=== PATIENT | male | born 1930 | race Caucasian/White ===

== ENCOUNTER 2017-10-08 08:09 | Day surgery (SDC) | payer MEDICARE, BC ==
[~2017-10-08 08:09] MED LIST: Cefuroxime 10 MG/ML SYRINGE EYELF SCH; Lidocaine 1% PF 2 ML SDV INJECT SCH; Pilocarpine 4% Ophth Soln 15 ML Bot EYELF SCH
[2017-10-08] MEDS: Polymyxin B/Trimethoprim 10 ML Bottle EYELF SCH ×3 (08:23→10:17)
[2017-10-08] MEDS: Brimonidine 0.2% Ophth Soln 5 ML Bottle EYELF SCH ×3 (08:27→10:17)
--- NOTE | 2017-10-08 08:34 | PCM.PREANE ---
Preanesthetic Assessment - Procedure Proposed Procedure: cataract left - Anesthesia/Transfusion/Family Hx Anesthesia History: Prior Anesthesia Without Reaction Family History of Anesthesia Reaction: No Transfusion History: No Prior Transfusion(s) - Review of Systems General: No Symptoms Pulmonary: Cough (chronic) Cardiovascular: No Symptoms Gastrointestinal: No Symptoms Neurological: No Symptoms - Physical Assessment NPO Status Date: 10/07/17 NPO Status Time: 20:00 Pulse: 70 O2 Sat by Pulse Oximetry: 98 Respiratory Rate: 16 Blood Pressure: 142/99 Temperature: 97.4 F Height: 6 ft Weight: 88.451 kg ASA Class: 2 Mental Status: Alert & Oriented x3 Airway Class: Mallampati = 1 Dentition: Reports: Dentures (top), Missing Tooth/Teeth (bottom) Thyro-Mental Finger Breadths: 3 Mouth Opening Finger Breadths: 3 ROM/Head Extension: Full Lungs: Clear to Auscultation, Normal Respiratory Effort Cardiovascular: Irregular Rhythm - Allergies Allergies/Adverse Reactions: Allergies Allergy/AdvReac Type Severity Reaction Status Date / Time No Known Allergies Allergy Verified 10/07/17 12:10 - Blood Blood Available: No - Anesthesia Plan Beta Mikael: Metoprolol Med Last Dose Date: 10/08/17 Med Last Dose Time: 07:00 - Acknowledgements Anesthesia Type Planned: MAC Pt an Appropriate Candidate for the Planned Anesthesia: Yes Alternatives and Risks of Anesthesia Discussed w Pt/Guardian: Yes Pt/Guardian Understands and Agrees with Anesthesia Plan: Yes PreAnesthesia Questionnaire Cardiovascular History: Reports: Afib, High Cholesterol, Hypertension Respiratory History: Reports: None, Other (See Below) (quit 50 years ago) Gastrointestinal History: Reports: None Musculoskeletal History: Reports: Arthritis, Back Pain, Chronic Oncologic (Cancer) History: Reports: Prostate (many years ago) - Past Surgical History GI Surgical History: Reports: Colonoscopy Musculoskeletal Surgical History: Reports: Knee Replacement - SUBSTANCE USE Smoking Status *Q: Former Smoker Tobacco Use Within Last Twelve Months: No Second Hand Smoke Exposure: No Days Per Week of Alcohol Use: 0 Number of Drinks Per Day: 0 Total Drinks Per Week: 0 Recreational Drug Use History: No - HOME MEDS Home Medications: Home Meds Aspirin [Halfprin] 81 mg PO DAILY 11/26/13 [History] atorvaSTATin [Lipitor] 40 mg PO BEDTIME #30 tab 11/27/13 [Rx] Metoprolol Tartrate 12.5 mg PO BID 10/07/17 [History] Warfarin Sodium 4 mg PO BEDTIME 10/07/17 [History] - CURRENT (IN HOUSE) MEDS Current Meds: Current Medications Brimonidine Tartrate (Alphagan 0.2% Ophth Soln) 0 ml EYELF ASDIRECTED FARHAT Stop: 10/08/17 19:00 Cefuroxime Sodium (Zinacef) 0 mg EYELF ASDIRECTED FARHAT Stop: 10/08/17 19:00 Lidocaine HCl (Xylocaine-Mpf 1%) 0 ml INJECT ASDIRECTED FARHAT Stop: 10/08/17 19:00 Phenylephrine HCl (Murphy-Synephrine 2.5% Ophth Soln) 0 ml EYELF ASDIRECTED FARHAT Stop: 10/08/17 19:00 Pilocarpine HCl (Pilocar 4% Ophth Soln) 0 ml EYELF ASDIRECTED FARHAT Stop: 10/08/17 19:00 Polymyxin/Trimethoprim Sulfate (Polytrim Ophth Soln) 0 ml EYELF ASDIRECTED FARHAT Stop: 10/08/17 19:00 Last Admin: 10/08/17 08:23 Dose: 1 drop Tetracaine HCl (Tetracaine 0.5% Steri-Unit Karissa) 0 ml EYELF ASDIRECTED FARHAT Stop: 10/08/17 19:00 Tropicamide (Mydriacyl 1% Ophth Soln) 0 ml EYELF ASDIRECTED FARHAT Stop: 10/08/17 19:00
[2017-10-08] MEDS: Phenylephrine 2.5% Ophth Soln 2 ML Bot EYELF SCH ×4 (08:35→09:14)
[2017-10-08] MEDS: Tropicamide 1% Ophth Soln 3 ML Bottle EYELF SCH ×4 (08:40→09:24)
[2017-10-08] MEDS: Tetracaine HCl/PF 0.5% 4 ML Bottle EYELF SCH ×3 (09:46→10:06)
--- NOTE | 2017-10-08 10:19 | PCM48HPAN ---
Post Anesthesia Note - EVALUATION WITHIN 48HRS OF ANESTHETIC Vital Signs in Normal Range: Yes Patient Participated in Evaluation: Yes Respiratory Function Stable: Yes Airway Patent: Yes Cardiovascular Function Stable: Yes Hydration Status Stable: Yes Pain Control Satisfactory: Yes Nausea and Vomiting Control Satisfactory: Yes Mental Status Recovered: Yes Pulse Rate: 65 SaO2: 100 Resp Rate: 16 Temperature: 36.8 C Blood Pressure: 136/86
[2017-10-08 10:33] VITALS: BP 126/84
== END 2017-10-08 10:28 | disposition home or self-care (01) ==
LOC: JD.SDS 08:09
PROVIDERS: ATTEND Ophthalmology
DX: H25.813 Combined forms of age-related cataract, bilateral (principal); E78.00 Pure hypercholesterolemia, unspecified; I48.91 Unspecified atrial fibrillation; I10 Essential (primary) hypertension; H91.90 Unspecified hearing loss, unspecified ear; H35.3131 Nonexudative age-related macular degeneration, bilateral, early dry stage; H35.363 Drusen (degenerative) of macula, bilateral; H16.223 Keratoconjunctivitis sicca, not specified as Sjogren's, bilateral; H16.103 Unspecified superficial keratitis, bilateral; H02.831 Dermatochalasis of right upper eyelid; Z87.891 Personal history of nicotine dependence; Z79.01 Long term (current) use of anticoagulants; Z79.82 Long term (current) use of aspirin
CPT/HCPCS: 66984; C1780; J0697; J2001; A9270-GY

== ENCOUNTER 2017-11-07 09:04 | Day surgery (SDC) | payer MEDICARE, BC ==
[~2017-11-07 09:04] MED LIST changes: -Cefuroxime 10 MG/ML SYRINGE EYELF SCH; +Cefuroxime 10 MG/ML SYRINGE EYERT SCH; -Pilocarpine 4% Ophth Soln 15 ML Bot EYELF SCH; +Pilocarpine 4% Ophth Soln 15 ML Bot EYERT SCH
[2017-11-07] MEDS: Polymyxin B/Trimethoprim 10 ML Bottle EYERT SCH ×3 (10:33→12:25)
[2017-11-07] MEDS: Brimonidine 0.2% Ophth Soln 5 ML Bottle EYERT SCH ×3 (10:39→12:25)
[2017-11-07] MEDS: Phenylephrine 2.5% Ophth Soln 2 ML Bot EYERT SCH ×5 (10:44→12:00)
[2017-11-07] MEDS: Tropicamide 1% Ophth Soln 15 ML Bottle EYERT SCH ×4 (10:49→11:39)
--- NOTE | 2017-11-07 10:58 | PCM.PREANE ---
Preanesthetic Assessment - Anesthesia/Transfusion/Family Hx Anesthesia History: Prior Anesthesia Without Reaction Family History of Anesthesia Reaction: No Transfusion History: No Prior Transfusion(s) - Review of Systems General: No Symptoms Pulmonary: Shortness of Breath, Cough (Former Smoker, Chronic cough) Cardiovascular: No Symptoms Gastrointestinal: No Symptoms Neurological: No Symptoms Other: Reports: Easy Bruising (On coumadin) - Physical Assessment NPO Status Date: 11/06/17 NPO Status Time: 21:00 Pulse: 81 O2 Sat by Pulse Oximetry: 96 Respiratory Rate: 16 Blood Pressure: 149/93 Temperature: 36.8 C Weight: 88.451 kg ASA Class: 3 Mental Status: Alert & Oriented x3 Airway Class: Mallampati = 2 Dentition: Reports: Normal Dentition Thyro-Mental Finger Breadths: 3 Mouth Opening Finger Breadths: 3 ROM/Head Extension: Full Lungs: Clear to Auscultation, Normal Respiratory Effort Cardiovascular: Irregular Rhythm (History of A Fib) - Allergies Allergies/Adverse Reactions: Allergies Allergy/AdvReac Type Severity Reaction Status Date / Time No Known Allergies Allergy Verified 11/06/17 11:12 - Anesthesia Plan Beta Mikael: Metoprolol Med Last Dose Date: 11/07/17 Med Last Dose Time: 07:00 - Acknowledgements Anesthesia Type Planned: MAC Pt an Appropriate Candidate for the Planned Anesthesia: Yes Alternatives and Risks of Anesthesia Discussed w Pt/Guardian: Yes Pt/Guardian Understands and Agrees with Anesthesia Plan: Yes PreAnesthesia Questionnaire Cardiovascular History: Reports: Afib, High Cholesterol, Hypertension Respiratory History: Reports: None, Other (See Below) (quit 50 years ago) Gastrointestinal History: Reports: None Musculoskeletal History: Reports: Arthritis, Back Pain, Chronic Oncologic (Cancer) History: Reports: Prostate (many years ago) - Past Surgical History GI Surgical History: Reports: Colonoscopy Musculoskeletal Surgical History: Reports: Knee Replacement - HOME MEDS Home Medications: Home Meds Aspirin [Halfprin] 81 mg PO DAILY 11/26/13 [History] atorvaSTATin [Lipitor] 40 mg PO BEDTIME #30 tab 11/27/13 [Rx] Metoprolol Tartrate 12.5 mg PO BID 10/07/17 [History] Warfarin Sodium 4 mg PO BEDTIME 10/07/17 [History] - CURRENT (IN HOUSE) MEDS Current Meds: Current Medications [facility] 0 ml EYERT ASDIRECTED FARHAT Stop: 11/07/17 18:00 Last Admin: 11/07/17 10:39 Dose: 1 drop Cefuroxime Sodium (Zinacef) 0 mg EYERT ASDIRECTED FARHAT Stop: 11/07/17 18:00 Lidocaine HCl (Xylocaine-Mpf 1%) 0 ml INJECT ASDIRECTED FARHAT Stop: 11/07/17 18:00 Phenylephrine HCl (Murphy-Synephrine 2.5% Ophth Soln) 0 ml EYERT ASDIRECTED FARHAT Stop: 11/07/17 18:00 Last Admin: 11/07/17 10:44 Dose: 1 drop Pilocarpine HCl (Pilocar 4% Ophth Soln) 0 ml EYERT ASDIRECTED FARHAT Stop: 11/07/17 18:00 Polymyxin/Trimethoprim Sulfate (Polytrim Ophth Soln) 0 ml EYERT ASDIRECTED FARHAT Stop: 11/07/17 18:00 Last Admin: 11/07/17 10:33 Dose: 1 drop Tetracaine HCl (Tetracaine 0.5% Steri-Unit Karissa) 0 ml EYERT ASDIRECTED FARHAT Stop: 11/07/17 18:00 Tropicamide (Mydriacyl 1% Ophth Soln) 0 ml EYERT ASDIRECTED FARHAT Stop: 11/07/17 18:00 Last Admin: 11/07/17 10:49 Dose: 1 drop
[2017-11-07] MEDS: Tetracaine HCl/PF 0.5% 4 ML Bottle EYERT SCH ×2 (11:50→12:11)
--- NOTE | 2017-11-07 12:27 | PCM48HPAN ---
Post Anesthesia Note - EVALUATION WITHIN 48HRS OF ANESTHETIC Vital Signs in Normal Range: Yes Patient Participated in Evaluation: Yes Respiratory Function Stable: Yes Airway Patent: Yes Cardiovascular Function Stable: Yes Hydration Status Stable: Yes Pain Control Satisfactory: Yes Nausea and Vomiting Control Satisfactory: Yes Mental Status Recovered: Yes Pulse Rate: 69 SaO2: 99 Resp Rate: 20 Temperature: 36.8 C Blood Pressure: 126/98
[2017-11-07 12:44] VITALS: BP 137/93
== END 2017-11-07 12:40 | disposition home or self-care (01) ==
LOC: JD.SDS 09:04
PROVIDERS: ATTEND Ophthalmology
DX: H25.811 Combined forms of age-related cataract, right eye (principal); H35.3131 Nonexudative age-related macular degeneration, bilateral, early dry stage; H35.363 Drusen (degenerative) of macula, bilateral; H02.831 Dermatochalasis of right upper eyelid; E78.00 Pure hypercholesterolemia, unspecified; M19.90 Unspecified osteoarthritis, unspecified site; Z79.01 Long term (current) use of anticoagulants; Z98.42 Cataract extraction status, left eye; Z96.1 Presence of intraocular lens; Z87.891 Personal history of nicotine dependence; Z83.518 Family history of other specified eye disorder
CPT/HCPCS: 66984; C1780; J0697; A9270-GY; J2001

== ENCOUNTER 2018-08-14 18:16 | Emergency (ER) | payer MEDICARE, BC ==
[2018-08-14 18:41] VITALS: BP 134/85
[2018-08-14] MEDS ORDERED: Sodium Chloride 0.9% 10 ML Syringe FLUSH PRN (18:53)
[2018-08-14] MEDS ORDERED: Diltiazem 50 MG/10 ML SDV IVPUSH ONE (18:55)
[2018-08-14] MEDS ORDERED: Furosemide 40 MG/4 ML VIAL IVPUSH ONE (18:55)
--- NOTE | 2018-08-14 19:09 | EDM.PDOC ---
<LalaCurt goodman Hillary - Last Filed: 08/14/18 19:08> ED HPI GENERAL MEDICAL PROBLEM - General Chief Complaint: Respiratory Problem Stated Complaint: FELL SATURDAY/WEAK SOB/BACK PAIN Time Seen by Provider: 08/14/18 18:53 - Related Data Allergies Allergy/AdvReac Type Severity Reaction Status Date / Time No Known Allergies Allergy Verified 11/06/17 11:12 Home Meds: Home Meds atorvaSTATin [Lipitor] 40 mg PO BEDTIME #30 tab 11/27/13 [Rx] Metoprolol Tartrate 25 mg PO BID 10/07/17 [History] Warfarin Sodium 4 mg PO BEDTIME 10/07/17 [History] Furosemide [Lasix] 20 mg PO DAILY 08/14/18 [History] Past Medical History HEENT History: Reports: Impaired Vision Cardiovascular History: Reports: Afib, High Cholesterol, Hypertension Respiratory History: Reports: None, Other (See Below) Gastrointestinal History: Reports: None Musculoskeletal History: Reports: Arthritis, Back Pain, Chronic Oncologic (Cancer) History: Reports: Prostate - Past Surgical History GI Surgical History: Reports: Colonoscopy Musculoskeletal Surgical History: Reports: Knee Replacement Social & Family History - Tobacco Use Smoking Status *Q: Never Smoker - Recreational Drug Use Recreational Drug Use: No Course - Vital Signs Last Recorded V/S: Last Vital Signs Temp 100.5 F 08/14/18 18:36 Pulse 135 H 08/14/18 18:36 Resp 32 H 08/14/18 18:36 BP 134/85 08/14/18 18:36 Pulse Ox 95 08/14/18 19:05 - Orders/Labs/Meds Orders: Active Orders 24 hr Category Date Time Status EKG Documentation Completion [RC] STAT Care 08/14/18 18:42 Active Apple Catheter Insertion [Insert Urinary Catheter] [OM. Care 08/14/18 19:00 Ordered PC] Q24H Urinary Catheter Assessment [RC] ASDIRECTED Care 08/14/18 18:57 Active Chest 1V Frontal [CR] Stat Exams 08/14/18 18:42 Taken CULTURE BLOOD [BC] Stat Lab 08/14/18 19:20 Received CULTURE BLOOD [BC] Stat Lab 08/14/18 19:28 Received Diltiazem 125 mg Med 08/14/18 19:15 Active Sodium Chloride 0.9% [Normal Saline] 100 ml IV TITRATE Sodium Chloride 0.9% [Normal Saline] 1,000 ml Med 08/14/18 22:00 Active IV ASDIRECTED Sodium Chloride 0.9% [Saline Flush] Med 08/14/18 18:53 Active 10 ml FLUSH ASDIRECTED PRN BiPAP [RESPCARE] Stat Ot 08/14/18 19:40 Active Blood Culture x2 Reflex Set [OM.PC] Stat Ot 08/14/18 18:55 Ordered Saline Lock Insert [OM.PC] Routine Ot 08/14/18 18:53 Ordered Medication Orders Diltiazem HCl 125 mg/ Sodium (Chloride) 125 mls @ 5 mls/hr IV TITRATE FARHAT; Protocol Last Titration: 08/14/18 22:08 Dose: 10 mg/hr, 10 mls/hr Titration: 08/14/18 20:58 Dose: 15 mg/hr, 15 mls/hr Titration: 08/14/18 19:58 Dose: 10 mg/hr, 10 mls/hr Admin: 08/14/18 19:21 Dose: 5 mg/hr, 5 mls/hr Sodium Chloride (Normal Saline) 1,000 mls @ 999 mls/hr IV ASDIRECTED FARHAT Last Admin: 08/14/18 22:08 Dose: 999 mls/hr Sodium Chloride (Saline Flush) 10 ml FLUSH ASDIRECTED PRN PRN Reason: Keep Vein Open Last Admin: 08/14/18 19:01 Dose: 10 ml Labs: Laboratory Tests 08/14/18 08/14/18 08/14/18 Range/Units 18:38 18:38 18:38 WBC 4.28 (4.23-9.07) K/mm3 RBC 4.36 L (4.63-6.08) M/mm3 Hgb 13.0 L (13.7-17.5) gm/L Hct 38.3 L (40.1-51.0) % MCV 87.8 (79.0-92.2) fl MCH 29.8 (25.7-32.2) pg MCHC 33.9 (32.2-35.5) g/dl RDW Std Deviation 44.0 H (35.1-43.9) fL Plt Count 174 (163-337) K/mm3 MPV 11.3 (9.4-12.3) fl Neut % (Auto) 87.7 H (34.0-67.9) % Lymph % (Auto) 6.3 L (21.8-53.1) % Bureau % (Auto) 5.8 (5.3-12.2) % Eos % (Auto) 0 L (0.8-7.0) Baso % (Auto) 0.0 L (0.1-1.2) % Neut # (Auto) 3.75 (1.78-5.38) K/mm3 Lymph # (Auto) 0.27 L (1.32-3.57) K/mm3 Bureau # (Auto) 0.25 L (0.30-0.82) K/mm3 Eos # (Auto) 0.00 L (0.04-0.54) K/mm3 Baso # (Auto) 0.00 L (0.01-0.08) K/mm3 Manual Slide Review Abnormal smear PT 17.8 H (9.5-12.1) SECONDS INR 1.65 Sodium 137 (136-145) mEq/L Potassium 3.1 L (3.5-5.1) mEq/L Chloride 100 (98-107) mEq/L Carbon Dioxide 23 (21-32) mEq/L Anion Gap 17.1 H (5-15) BUN 41 H (7-18) mg/dL Creatinine 1.7 H (0.7-1.3) mg/dL Est Cr Clr Drug Dosing 36.02 mL/min Estimated GFR (MDRD) 38 (>60) mL/min BUN/Creatinine Ratio 24.1 H (14-18) Glucose 185 H (83-115) mg/dL Lactic Acid (0.4-2.0) mmol/L Calcium 8.8 (8.5-10.1) mg/dL Magnesium (1.8-2.4) mg/dl Total Bilirubin 3.0 H (0.2-1.0) mg/dL AST 32 (15-37) U/L ALT 32 (16-63) U/L Alkaline Phosphatase 59 (46-116) U/L CK-MB (CK-2) 1.1 (0-3.6) ng/ml Troponin I 0.024 (0.00-0.056) ng/mL C-Reactive Protein (<1.0) mg/dL NT-Pro-B Natriuret Pep (0-450) pg/mL Total Protein 7.4 (6.4-8.2) g/dl Albumin 3.0 L (3.4-5.0) g/dl Globulin 4.4 gm/dL Albumin/Globulin Ratio 0.7 L (1-2) Urine Color (Yellow) Urine Appearance (Clear) Urine pH (5.0-8.0) Ur Specific [place] (1.005-1.030) Urine Protein (Negative) Urine Glucose (UA) (Negative) Urine Ketones (Negative) Urine Occult Blood (Negative) Urine Nitrite (Negative) Urine Bilirubin (Negative) Urine Urobilinogen (0.2-1.0) Ur Leukocyte Esterase (Negative) Urine RBC (0-5) /hpf Urine WBC (0-5) /hpf Ur Epithelial Cells (0-5) /hpf Amorphous Sediment (NOT SEEN) /hpf Urine Bacteria (FEW) /hpf Urine Mucus (FEW) /hpf 08/14/18 08/14/18 08/14/18 Range/Units 18:38 18:38 19:05 WBC (4.23-9.07) K/mm3 RBC (4.63-6.08) M/mm3 Hgb (13.7-17.5) gm/L Hct (40.1-51.0) % MCV (79.0-92.2) fl MCH (25.7-32.2) pg MCHC (32.2-35.5) g/dl RDW Std Deviation (35.1-43.9) fL Plt Count (163-337) K/mm3 MPV (9.4-12.3) fl Neut % (Auto) (34.0-67.9) % Lymph % (Auto) (21.8-53.1) % Bureau % (Auto) (5.3-12.2) % Eos % (Auto) (0.8-7.0) Baso % (Auto) (0.1-1.2) % Neut # (Auto) (1.78-5.38) K/mm3 Lymph # (Auto) (1.32-3.57) K/mm3 Bureau # (Auto) (0.30-0.82) K/mm3 Eos # (Auto) (0.04-0.54) K/mm3 Baso # (Auto) (0.01-0.08) K/mm3 Manual Slide Review PT (9.5-12.1) SECONDS INR Sodium (136-145) mEq/L Potassium (3.5-5.1) mEq/L Chloride (98-107) mEq/L Carbon Dioxide (21-32) mEq/L Anion Gap (5-15) BUN (7-18) mg/dL Creatinine (0.7-1.3) mg/dL Est Cr Clr Drug Dosing mL/min Estimated GFR (MDRD) (>60) mL/min BUN/Creatinine Ratio (14-18) Glucose (83-115) mg/dL Lactic Acid (0.4-2.0) mmol/L Calcium (8.5-10.1) mg/dL Magnesium 1.7 L (1.8-2.4) mg/dl Total Bilirubin (0.2-1.0) mg/dL AST (15-37) U/L ALT (16-63) U/L Alkaline Phosphatase (46-116) U/L CK-MB (CK-2) (0-3.6) ng/ml Troponin I (0.00-0.056) ng/mL C-Reactive Protein 27.5 H* (<1.0) mg/dL NT-Pro-B Natriuret Pep 4556 H (0-450) pg/mL Total Protein (6.4-8.2) g/dl Albumin (3.4-5.0) g/dl Globulin gm/dL Albumin/Globulin Ratio (1-2) Urine Color Yellow (Yellow) Urine Appearance Cloudy H (Clear) Urine pH 5.5 (5.0-8.0) Ur Specific [place] 1.025 (1.005-1.030) Urine Protein 2+ H (Negative) Urine Glucose (UA) Negative (Negative) Urine Ketones Negative (Negative) Urine Occult Blood 2+ H (Negative) Urine Nitrite Negative (Negative) Urine Bilirubin Negative (Negative) Urine Urobilinogen 1.0 (0.2-1.0) Ur Leukocyte Esterase Negative (Negative) Urine RBC 0-5 (0-5) /hpf Urine WBC 0-5 (0-5) /hpf Ur Epithelial Cells 0-5 (0-5) /hpf Amorphous Sediment Moderate H (NOT SEEN) /hpf Urine Bacteria Few H (FEW) /hpf Urine Mucus Few (FEW) /hpf 08/14/18 Range/Units 19:20 WBC (4.23-9.07) K/mm3 RBC (4.63-6.08) M/mm3 Hgb (13.7-17.5) gm/L Hct (40.1-51.0) % MCV (79.0-92.2) fl MCH (25.7-32.2) pg MCHC (32.2-35.5) g/dl RDW Std Deviation (35.1-43.9) fL Plt Count (163-337) K/mm3 MPV (9.4-12.3) fl Neut % (Auto) (34.0-67.9) % Lymph % (Auto) (21.8-53.1) % Bureau % (Auto) (5.3-12.2) % Eos % (Auto) (0.8-7.0) Baso % (Auto) (0.1-1.2) % Neut # (Auto) (1.78-5.38) K/mm3 Lymph # (Auto) (1.32-3.57) K/mm3 Bureau # (Auto) (0.30-0.82) K/mm3 Eos # (Auto) (0.04-0.54) K/mm3 Baso # (Auto) (0.01-0.08) K/mm3 Manual Slide Review PT (9.5-12.1) SECONDS INR Sodium (136-145) mEq/L Potassium (3.5-5.1) mEq/L Chloride (98-107) mEq/L Carbon Dioxide (21-32) mEq/L Anion Gap (5-15) BUN (7-18) mg/dL Creatinine (0.7-1.3) mg/dL Est Cr Clr Drug Dosing mL/min Estimated GFR (MDRD) (>60) mL/min BUN/Creatinine Ratio (14-18) Glucose (83-115) mg/dL Lactic Acid 1.8 (0.4-2.0) mmol/L Calcium (8.5-10.1) mg/dL Magnesium (1.8-2.4) mg/dl Total Bilirubin (0.2-1.0) mg/dL AST (15-37) U/L ALT (16-63) U/L Alkaline Phosphatase (46-116) U/L CK-MB (CK-2) (0-3.6) ng/ml Troponin I (0.00-0.056) ng/mL C-Reactive Protein (<1.0) mg/dL NT-Pro-B Natriuret Pep (0-450) pg/mL Total Protein (6.4-8.2) g/dl Albumin (3.4-5.0) g/dl Globulin gm/dL Albumin/Globulin Ratio (1-2) Urine Color (Yellow) Urine Appearance (Clear) Urine pH (5.0-8.0) Ur Specific [place] (1.005-1.030) Urine Protein (Negative) Urine Glucose (UA) (Negative) Urine Ketones (Negative) Urine Occult Blood (Negative) Urine Nitrite (Negative) Urine Bilirubin (Negative) Urine Urobilinogen (0.2-1.0) Ur Leukocyte Esterase (Negative) Urine RBC (0-5) /hpf Urine WBC (0-5) /hpf Ur Epithelial Cells (0-5) /hpf Amorphous Sediment (NOT SEEN) /hpf Urine Bacteria (FEW) /hpf Urine Mucus (FEW) /hpf Meds: Medications Generic Name Dose Route Start Last Admin Trade Name Freq PRN Reason Stop Dose Admin Diltiazem HCl 125 mg/ Sodium 125 mls @ 5 mls/hr 08/14/18 19:15 08/14/18 22:08 Chloride IV 10 mg/hr TITRATE FARHAT 10 mls/hr Titration Protocol 5 MG/HR Sodium Chloride 1,000 mls @ 999 mls/hr 08/14/18 22:00 08/14/18 22:08 Normal Saline IV 999 mls/hr ASDIRECTED FARHAT Administration Sodium Chloride 10 ml 08/14/18 18:53 08/14/18 19:01 Saline Flush FLUSH 10 ml ASDIRECTED PRN Administration Keep Vein Open Discontinued Medications Generic Name Dose Route Start Last Admin Trade Name Freq PRN Reason Stop Dose Admin Diltiazem HCl 10 mg 08/14/18 18:55 08/14/18 19:01 Cardizem IVPUSH 08/14/18 18:56 10 mg ONETIME ONE Administration Furosemide 40 mg 08/14/18 18:55 08/14/18 19:01 Lasix IVPUSH 08/14/18 18:56 40 mg NOW ONE Administration Magnesium Oxide 400 mg 08/14/18 20:20 08/14/18 20:46 Magnesium Oxide PO 08/14/18 20:21 400 mg ONETIME ONE Administration Potassium Chloride 40 meq 08/14/18 20:21 08/14/18 21:01 Potassium Chloride Solution PO 08/14/18 20:22 Not Given ONETIME ONE Potassium Chloride 20 meq 08/14/18 20:37 08/14/18 21:03 Klor-Con M20 PO 08/14/18 20:38 Not Given ONETIME ONE Potassium Chloride 40 meq 08/14/18 20:38 08/14/18 20:46 Klor-Con M20 PO 08/14/18 20:39 40 meq ONETIME ONE Administration Departure - Departure Disposition: DC/Tfer to [facility] 02 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 Pneumonia Qualifiers: Pneumonia type: due to unspecified organism Laterality: right Lung location: lower lobe of lung Qualified Code(s): J18.1 - Lobar pneumonia, unspecified organism Atrial fibrillation Qualifiers: Atrial fibrillation type: chronic Qualified Code(s): I48.2 - Chronic atrial fibrillation - Discharge Information Referrals: Grisel Luz PA [Primary Care Provider] - Forms: ED Department Discharge - My Orders Last 24 Hours: My Active Orders 08/14/18 18:42 EKG Documentation Completion [RC] STAT Chest 1V Frontal [CR] Stat 08/14/18 18:53 Sodium Chloride 0.9% [Saline Flush] 10 ml FLUSH ASDIRECTED PRN Saline Lock Insert [OM.PC] Routine 08/14/18 18:55 Blood Culture x2 Reflex Set [OM.PC] Stat 08/14/18 18:57 Urinary Catheter Assessment [RC] ASDIRECTED 08/14/18 19:00 Apple Catheter Insertion [Insert Urinary Catheter] [OM.PC] Q24H 08/14/18 19:15 Diltiazem 125 mg Sodium Chloride 0.9% [Normal Saline] 100 ml IV TITRATE 08/14/18 19:20 CULTURE BLOOD [BC] Stat 08/14/18 19:28 CULTURE BLOOD [BC] Stat 08/14/18 19:40 BiPAP [RESPCARE] Stat 08/14/18 22:00 Sodium Chloride 0.9% [Normal Saline] 1,000 ml IV ASDIRECTED - Assessment/Plan Last 24 Hours: My Active Orders 08/14/18 18:42 EKG Documentation Completion [RC] STAT Chest 1V Frontal [CR] Stat 08/14/18 18:53 Sodium Chloride 0.9% [Saline Flush] 10 ml FLUSH ASDIRECTED PRN Saline Lock Insert [OM.PC] Routine 08/14/18 18:55 Blood Culture x2 Reflex Set [OM.PC] Stat 08/14/18 18:57 Urinary Catheter Assessment [RC] ASDIRECTED 08/14/18 19:00 Apple Catheter Insertion [Insert Urinary Catheter] [OM.PC] Q24H 08/14/18 19:15 Diltiazem 125 mg Sodium Chloride 0.9% [Normal Saline] 100 ml IV TITRATE 08/14/18 19:20 CULTURE BLOOD [BC] Stat 08/14/18 19:28 CULTURE BLOOD [BC] Stat 08/14/18 19:40 BiPAP [RESPCARE] Stat 08/14/18 22:00 Sodium Chloride 0.9% [Normal Saline] 1,000 ml IV ASDIRECTED <Wendy Gan - Last Filed: 08/14/18 23:03> ED HPI GENERAL MEDICAL PROBLEM - General Source of Information: Reports: Patient, Family History Limitations: Reports: No Limitations - History of Present Illness INITIAL COMMENTS - FREE TEXT/NARRATIVE: 88 y/o male presents to ER with cc confusion and weakness. He is accompanied by his daughter in-law who states he fell 2 days ago. It was not witness but when the son found him he had blood on his face and is concerned he hit his head. She reports he has been incontinent of stool and bladder. He is currently taking Coumadin for atrial fib. She states he has had a cough for the past 4 days and was seen at the clinic 4 days ago and they didn't do anything at this time. He appears to been in distress his oxygen level is 84% on room air. Oxygen non-rebreather was applied. He complains of lower and mid back pain. He denies fever but states he has had the chills. He does have a history of heart disease and atrial fibrillation. He lives alone and is a . Onset Date: 08/12/18 Onset Time: 09:00 Duration: Minutes: Location: Reports: Head, Chest, Back Quality: Reports: Ache Severity: Mild Improves with: Reports: None Worsens with: Reports: Movement Context: Reports: Trauma (s/p fall) Associated Symptoms: Reports: Cough, Fever/Chills, Weakness. Denies: Confusion , Chest Pain, Headaches, Nausea/Vomiting ED ROS GENERAL - Review of Systems Review Of Systems: See Below Constitutional: Reports: Chills. Denies: Fever HEENT: Reports: Hearing Loss Respiratory: Reports: Shortness of Breath, Cough Cardiovascular: Denies: Chest Pain Endocrine: Reports: Fatigue GI/Abdominal: Denies: Abdominal Pain : Reports: Incontinence Musculoskeletal: Reports: Back Pain, Muscle Pain. Denies: Neck Pain Skin: Reports: Dryness, Bruising Neurological: Reports: Confusion, Dizziness, Difficulty Walking, Gait Disturbance Psychiatric: Reports: No Symptoms Hematologic/Lymphatic: Reports: No Symptoms Immunologic: Reports: No Symptoms ED EXAM, GENERAL - Physical Exam Exam: See Below Exam Limited By: No Limitations General Appearance: Alert, WD/WN, No Apparent Distress, Other (incontinent of stool and urine, dried feces noted on lower legs. ) Eye Exam: Bilateral Eye: PERRL Ears: Normal External Exam, Normal Canal, Normal TMs, Hearing Loss Nose: Normal Inspection, Normal Mucosa, No Blood Throat/Mouth: Normal Inspection, Normal Lips, Normal Teeth, Normal Gums, Normal Oropharynx, Normal Voice, No Airway Compromise Head: Atraumatic, Normocephalic Neck: Normal Inspection, Supple, Non-Tender, Full Range of Motion Respiratory/Chest: Crackles Cardiovascular: Normal Peripheral Pulses, No Edema, No Gallop, No JVD, No Murmur , No Rub, Tachycardia, Irregularly Irregular GI/Abdominal: Normal Bowel Sounds, Soft, Non-Tender, No Organomegaly, No Distention, No Abnormal Bruit, No Mass, Pelvis Stable Back Exam: Decreased Range of Motion, Other (lower lumbar and cervical tenderness. ). No: CVA Tenderness (L), CVA Tenderness (R), Paraspinal Tenderness, Vertebral Tenderness Extremities: Normal Inspection, Normal Range of Motion, Non-Tender, No Pedal Edema, Normal Capillary Refill Neurological: Alert, Oriented, Abnormal Gait Psychiatric: Normal Affect, Normal Mood Skin Exam: Warm, Dry, Intact, Normal Color Lymphatic: No Adenopathy EKG INTERPRETATION EKG Date: 08/14/18 Time: 18:41 Rhythm: A-Fib Rate (Beats/Min): 134 EKG Interpretation Comments: a fib rate 110-160 with RVR. RBBB LAD (-25) ST depressing T-wave inversion in v1-V mQTc is moderately prolonged. Course - Re-Assessments/Exams Free Text/Narrative Re-Assessment/Exam: 08/14/18 [address] Maria who accepted patient for admission for CHF, right lower lobe pneumonia and atrial fibrillation. 08/14/18 22:32 88 y/o male presented to ER with cc confusion and weakness. His EKG revealed afib with RVR. He was started on cardizem drip and his rate is currently in the 100's. WBC 4.28 RBC 4.36 H & H 13.0/38.3 PT 17.5 INR 1.65 NA+ 135 K + 3.1 Chl 100 CO2 23 BUN 41 CREATINE 1.7 CRP 27.5 BNP 4556 MAG. 1.7. He was hypoxic on arrival I changed his oxygen to Bi-pap 12/6 90 % and his oxygen level remained 93-100%. His CT cervical spine revealed diffuse degenerative change as noted above with multiple levels of neural foraminal stenosis. No acute fracture is seen. Ct lumbar spine diffuse degenerative change as noted above. Moderte central canal stenosis at L4- L5. Scoliosis, nothing acute is seen. Head CT Mucosal thickening with possible air-fluid levels within the maxillary sinuses suggesting the possibility of acute sinusitis. Senescent change has slightly progressed in the seveerity from prior exam. No acute intracranial abnormality or acute skull fracture is seen. Departure - Departure Time of Disposition: 23:02 Condition: Good
[2018-08-14] MEDS ORDERED: Diltiazem 125 MG in Sodium Chloride 0.9% 100 ML IV SCH (19:15)
[2018-08-14] MEDS ORDERED: Potassium Chloride 10% 20 MEQ/15 ML Soln 15 ML UD Cup PO ONE (20:21)
[2018-08-14] MEDS: Magnesium Oxide 400 MG Tab PO ONE ×2 (20:31→20:46)
[2018-08-14] MEDS ORDERED: Potassium Chloride 20 MEQ Tab.ER PO ONE ×2 (20:37→20:38)
--- NOTE | 2018-08-14 20:41 | CT ---
Head CT Technique: Multiple axial sections through the brain were obtained. Intravenous contrast was not utilized. Comparison: Prior head CT study of 11/26/13. Findings: Ventricles along with basal cisterns and sulci over the convexities are moderately prominent. Diminished density is noted within the periventricular and subcortical white matter compatible with small vessel ischemic demyelination change. No other abnormal parenchymal densities are seen. No evidence of intracranial hemorrhage. No midline shift or mass effect is seen. Atherosclerotic calcification is seen within the carotid siphon. Bone window settings were reviewed which shows no acute calvarial abnormality. Mucosal thickening is noted within the maxillary and ethmoid sinuses. There appears to be small air-fluid levels within the maxillary sinuses raising the possibility of acute sinusitis. Impression: 1. Mucosal thickening with possible air-fluid levels within the maxillary sinuses suggesting the possibility of acute sinusitis. 2. Senescent change as described above. Senescent change has slightly progressed in severity from prior exam. 3. No acute intracranial abnormality or acute skull fracture is seen. Diagnostic code #3
--- NOTE | 2018-08-14 20:48 | CT ---
CT lumbar spine Technique: Multiple axial sections were obtained were obtained from above the T12-L1 disc inferiorly to the lower sacrum. Reconstructed sagittal and coronal images were reviewed. Findings: Diffuse disc space narrowing is seen with vacuum disc phenomena. Multiple levels of posterior spurring is seen with more prominent diffuse anterior spurring. Degenerative apophyseal change is seen most prominent within the lower lumbar spine. Annular rupture is seen with small amount of epidural air noted posterior to the L4-L5 and L5-S1 disks. Scoliosis is seen. Vacuum phenomenon is noted within the sacroiliac joints. No fracture is appreciated. No acute subluxation is seen. Moderate central canal stenosis noted at L4-L5. No traumatic disc herniation is seen. Impression: 1. Diffuse degenerative change as noted above. Moderate central canal stenosis at L4-L5. 2. Scoliosis. 3. Nothing acute is seen. Diagnostic code #3
--- NOTE | 2018-08-14 20:50 | CT ---
CT cervical spine Technique: Multiple axial sections through the cervical spine were obtained from above C1 inferiorly to the top of T3. Reconstructed sagittal and coronal images were reviewed. Findings: Accentuated kyphosis is seen within the cervical spine. Diffuse disc space narrowing is seen. Mild spondylolisthesisat C7-T1 due to severe degenerative apophyseal change. Lesser degenerative apophyseal change is scattered throughout the other levels of the cervical spine. Moderate bilateral neural foraminal stenosis is noted at C3-C4. Moderate bilateral stenosis noted at C4-C5. Moderate to severe bilateral neural foraminal stenosis noted at C5-C6. Moderate bilateral neural foraminal stenosis noted at C6-C7. Other neural foramina are grossly maintained. Diffuse degenerative change is noted throughout the uncovertebral joints. No fracture is appreciated. Impression: 1. Diffuse degenerative change as noted above with multiple levels of neural foraminal stenosis. 2. No acute fracture is seen. Diagnostic code #3
[2018-08-14] MEDS ORDERED: Sodium Chloride 0.9% 1,000 ML IV SCH (22:00)
[2018-08-14] MEDS ORDERED: cefTRIAXone 1 GM in Sodium Chloride 0.9% 100 ML IV ONE (23:09)
--- NOTE | 2018-08-15 05:52 | CR ---
Chest: Portable view of the chest was obtained. Comparison: No prior chest x-ray. Increased density within the right lung base is seen. Lungs otherwise are clear. Heart size is normal. Tortuous thoracic aorta is seen. Bony structures are grossly intact. Impression: 1. Mild increased density within the right lung base. Findings may represent change from aspiration, atelectasis or pneumonia. 2. Other incidental findings. Diagnostic code #3
== END 2018-08-14 23:25 ==
LOC: JD.ED 18:16
DX: J18.1 Lobar pneumonia, unspecified organism (principal); I48.2 Chronic atrial fibrillation; Q24.9 Congenital malformation of heart, unspecified
CPT/HCPCS: 36415; 51702; 70450; 71045; 72125; 72131; 80053; 81001; 82553; 83605; 83735; 83880; 84484; 85025; 85610; 86140; 87040; 93005; 94660; 96365; 96366; 96375; 96376; 99285; A9270; J0696; J1940; J3490; J7030; J7040; 93010

== ENCOUNTER 2019-04-18 20:07 | Inpatient (IN) | payer MEDICARE, BC ==
[2019-04-18] MEDS ORDERED: cefTRIAXone 1 GM in Sodium Chloride 0.9% 100 ML IV ONE (21:46)
[2019-04-18] MEDS ORDERED: Azithromycin 500 MG in Sodium Chloride 0.9% 250 ML IV ONE (21:46)
--- NOTE | 2019-04-18 22:03 | EDM.PDOC ---
ED HPI GENERAL MEDICAL PROBLEM - General Chief Complaint: Fever Stated Complaint: [facility] Time Seen by Provider: 04/18/19 20:09 Source of Information: Reports: EMS History Limitations: Reports: Other (Demented, also clinical condition) - History of Present Illness INITIAL COMMENTS - FREE TEXT/NARRATIVE: TRIAGE NOTE -- Pt brought in by ambulance after calling son d/t weakness. Per EMS pt has been sitting in chair for unknown amount of time. Incontinent of urine. pt has loose sounding cough that pt states has been there for a month. Pt states he has been feeling fine not sure why they called the ambulance. [ End ] No other immediate history is readily available at this point. Patient is demented and cannot provide much in the way of meaningful history. He lives alone and has since his . Says he quit smoking 50 years ago. Risk factors which are apparent include chronic debilitated state, advanced age, immobility, dementia, and probable element of COPD. No clear record of any intervention other than supportive care by EMS prior to arrival. - Related Data Allergies Allergy/AdvReac Type Severity Reaction Status Date / Time No Known Allergies Allergy Verified 11/06/17 11:12 Home Meds: Home Meds atorvaSTATin [Lipitor] 40 mg PO BEDTIME #30 tab 11/27/13 [Rx] Metoprolol Tartrate 25 mg PO BID 10/07/17 [History] Warfarin Sodium 4 mg PO BEDTIME 10/07/17 [History] Furosemide [Lasix] 20 mg PO DAILY 08/14/18 [History] Digoxin 125 mcg PO DAILY 04/18/19 [History] dilTIAZem HCl [Diltiazem 24Hr ER (Xr)] 120 mg PO DAILY 04/18/19 [History] Past Medical History HEENT History: Reports: Impaired Vision Cardiovascular History: Reports: Afib, High Cholesterol, Hypertension Respiratory History: Reports: None Gastrointestinal History: Reports: None Musculoskeletal History: Reports: Arthritis, Back Pain, Chronic Neurological History: Reports: CVA Oncologic (Cancer) History: Reports: Prostate - Past Surgical History GI Surgical History: Reports: Colonoscopy Musculoskeletal Surgical History: Reports: Knee Replacement Social & Family History - Tobacco Use Smoking Status *Q: Unknown Ever Smoked ED ROS GENERAL - Review of Systems Review Of Systems: Comprehensive ROS is negative, except as noted in HPI. ED EXAM, GENERAL - Physical Exam Exam: See Below Exam Limited By: No Limitations (Other than suboptimal cooperation) General Appearance: Alert, No Apparent Distress. No: WD/WN (Appears a bit dry and chronically debilitated) Eye Exam: Bilateral Eye: EOMI Ears: Normal External Exam Nose: Normal Inspection Throat/Mouth: Normal Inspection Head: Atraumatic, Normocephalic Neck: Supple, Non-Tender Respiratory/Chest: No Respiratory Distress, Decreased Breath Sounds, Rhonchi ( Patient suboptimally cooperative with exam but harsh cough is noted at times and some coarse rhonchi in the lung marcos bilaterally) Cardiovascular: Irregularly Irregular GI/Abdominal: Soft, Non-Tender Back Exam: Normal Inspection Extremities: Other (There is mild pitting edema of the legs and feet distally as well as some mild erythema of the distal legs) Neurological: Alert, Confused, Disoriented, Slow to Respond, Memory Loss Recent Events Psychiatric: Normal Affect Skin Exam: Warm, Dry Course - Vital Signs Text/Narrative:: Clinically the patient has a pneumonia. There is a relative hypoxemia, harsh cough, rhonchi. On chest x-ray there is a dense filtrate in the lower lung field on the right. This is similar to a chest x-ray done in July of this year however. Is not known whether the infiltrate cleared in the intervening time or whether this is a chronic infiltrate. In any event the patient does have a significant fever and needs to be admitted to the hospital with a presumptive community-acquired pneumonia. Rocephin and Zithromax started in the ER. He will be admitted to the service of Dr. Reyes. Discussed with Dr. Reyes who accepted the admission. The patient does not have an elevated white count nor does he have an elevated lactic acid. He does not meet strict sepsis criteria but does require hospitalization for management of his pneumonia. Last Recorded V/S: Last Vital Signs Temp 38.2 C H 04/18/19 20:09 Pulse 81 04/18/19 20:09 Resp 18 04/18/19 20:09 BP 136/82 04/18/19 20:09 Pulse Ox 92 L 04/18/19 20:09 - Orders/Labs/Meds Orders: Active Orders 24 hr Category Date Time Status EKG Documentation Completion [RC] STAT Care 04/18/19 20:13 Active Chest 1V Frontal [CR] Stat Exams 04/18/19 20:13 Taken CULTURE BLOOD [BC] Stat Lab 04/18/19 20:35 Received CULTURE BLOOD [BC] Stat Lab 04/18/19 20:43 Received Blood Culture x2 Reflex Set [OM.PC] Stat Oth 04/18/19 20:13 Ordered Labs: Laboratory Tests 04/18/19 04/18/19 04/18/19 Range/Units 20:34 20:34 20:35 WBC 5.72 (4.23-9.07) K/mm3 RBC 3.96 L (4.63-6.08) M/mm3 Hgb 12.1 L (13.7-17.5) gm/dl Hct 36.0 L (40.1-51.0) % MCV 90.9 D (79.0-92.2) fl MCH 30.6 (25.7-32.2) pg MCHC 33.6 (32.2-35.5) g/dl RDW Std Deviation 45.0 H (35.1-43.9) fL Plt Count 142 L (163-337) K/mm3 MPV 10.9 (9.4-12.3) fl Neut % (Auto) 84.4 H (34.0-67.9) % Lymph % (Auto) 5.8 L (21.8-53.1) % [place] % (Auto) 9.1 (5.3-12.2) % Eos % (Auto) 0.5 L (0.8-7.0) Baso % (Auto) 0.2 (0.1-1.2) % Neut # (Auto) 4.83 (1.78-5.38) K/mm3 Lymph # (Auto) 0.33 L (1.32-3.57) K/mm3 [place] # (Auto) 0.52 (0.30-0.82) K/mm3 Eos # (Auto) 0.03 L (0.04-0.54) K/mm3 Baso # (Auto) 0.01 (0.01-0.08) K/mm3 Manual Slide Review Abnormal smear PT (9.7-12.0) SECONDS INR Sodium (136-145) mEq/L Potassium (3.5-5.1) mEq/L Chloride (98-107) mEq/L Carbon Dioxide (21-32) mEq/L Anion Gap (5-15) BUN (7-18) mg/dL Creatinine (0.7-1.3) mg/dL Est Cr Clr Drug Dosing mL/min Estimated GFR (MDRD) (>60) mL/min BUN/Creatinine Ratio (14-18) Glucose (83-115) mg/dL Lactic Acid (0.4-2.0) mmol/L Calcium (8.5-10.1) mg/dL Magnesium (1.8-2.4) mg/dl Total Bilirubin (0.2-1.0) mg/dL AST (15-37) U/L ALT (16-63) U/L Alkaline Phosphatase (46-116) U/L Troponin I (0.00-0.056) ng/mL NT-Pro-B Natriuret Pep (0-450) pg/mL Total Protein (6.4-8.2) g/dl Albumin (3.4-5.0) g/dl Globulin gm/dL Albumin/Globulin Ratio (1-2) TSH 3rd Generation (0.358-3.74) uIU/mL Urine Color Yellow (Yellow) Urine Appearance Clear (Clear) Urine pH 6.0 (5.0-8.0) Ur Specific [place] 1.025 (1.005-1.030) Urine Protein Negative (Negative) Urine Glucose (UA) Negative (Negative) Urine Ketones Negative (Negative) Urine Occult Blood Trace-lysed H (Negative) Urine Nitrite Negative (Negative) Urine Bilirubin Negative (Negative) Urine Urobilinogen 0.2 (0.2-1.0) Ur Leukocyte Esterase Negative (Negative) Urine RBC 0-5 (0-5) /hpf Urine WBC 0-5 (0-5) /hpf Ur Squamous Epith Cells Not seen (0-5) /hpf Urine Bacteria Few (FEW) /hpf Urine Mucus Moderate H (FEW) /hpf Urine Opiates Screen Negative (PQIBZT=763) Ur Buprenorphine Scrn Negative (CUTOFF=10) Ur Oxycodone Screen Negative (NVJ1IE=055) Urine Methadone Screen Negative (FDV4CW=705) Ur Propoxyphene Screen Negative (ICHUGF=475) Ur Barbiturates Screen Negative (GCQRZJ=309) Ur Tricyclics Screen Negative (NFJVYH=116) Ur Phencyclidine Scrn Negative (CUTOFF=25) Ur Amphetamine Screen Negative (FCXWZL=451) U Methamphetamines Scrn Negative (LOOSJD=410) U Benzodiazepines Scrn Negative (WNHVOE=714) U Cocaine Metab Screen Negative (KVDEXW=527) U Marijuana (THC) Screen Negative (CUTOFF=50) 04/18/19 04/18/19 04/18/19 Range/Units 20:35 20:35 20:35 WBC (4.23-9.07) K/mm3 RBC (4.63-6.08) M/mm3 Hgb (13.7-17.5) gm/dl Hct (40.1-51.0) % MCV (79.0-92.2) fl MCH (25.7-32.2) pg MCHC (32.2-35.5) g/dl RDW Std Deviation (35.1-43.9) fL Plt Count (163-337) K/mm3 MPV (9.4-12.3) fl Neut % (Auto) (34.0-67.9) % Lymph % (Auto) (21.8-53.1) % [place] % (Auto) (5.3-12.2) % Eos % (Auto) (0.8-7.0) Baso % (Auto) (0.1-1.2) % Neut # (Auto) (1.78-5.38) K/mm3 Lymph # (Auto) (1.32-3.57) K/mm3 [place] # (Auto) (0.30-0.82) K/mm3 Eos # (Auto) (0.04-0.54) K/mm3 Baso # (Auto) (0.01-0.08) K/mm3 Manual Slide Review PT 23.9 H D (9.7-12.0) SECONDS INR 2.30 Sodium 137 (136-145) mEq/L Potassium 4.2 (3.5-5.1) mEq/L Chloride 101 (98-107) mEq/L Carbon Dioxide 30 (21-32) mEq/L Anion Gap 10.2 (5-15) BUN 18 (7-18) mg/dL Creatinine 1.2 (0.7-1.3) mg/dL Est Cr Clr Drug Dosing 48.19 mL/min Estimated GFR (MDRD) 57 (>60) mL/min BUN/Creatinine Ratio 15.0 (14-18) Glucose 131 H (83-115) mg/dL Lactic Acid (0.4-2.0) mmol/L Calcium 8.5 (8.5-10.1) mg/dL Magnesium 1.8 (1.8-2.4) mg/dl Total Bilirubin 1.5 H (0.2-1.0) mg/dL AST 20 (15-37) U/L ALT 26 (16-63) U/L Alkaline Phosphatase 70 (46-116) U/L Troponin I < 0.017 (0.00-0.056) ng/mL NT-Pro-B Natriuret Pep 2541 H (0-450) pg/mL Total Protein 7.4 (6.4-8.2) g/dl Albumin 3.4 (3.4-5.0) g/dl Globulin 4.0 gm/dL Albumin/Globulin Ratio 0.9 L (1-2) TSH 3rd Generation 0.884 (0.358-3.74) uIU/mL Urine Color (Yellow) Urine Appearance (Clear) Urine pH (5.0-8.0) Ur Specific [place] (1.005-1.030) Urine Protein (Negative) Urine Glucose (UA) (Negative) Urine Ketones (Negative) Urine Occult Blood (Negative) Urine Nitrite (Negative) Urine Bilirubin (Negative) Urine Urobilinogen (0.2-1.0) Ur Leukocyte Esterase (Negative) Urine RBC (0-5) /hpf Urine WBC (0-5) /hpf Ur Squamous Epith Cells (0-5) /hpf Urine Bacteria (FEW) /hpf Urine Mucus (FEW) /hpf Urine Opiates Screen (CMSKOX=107) Ur Buprenorphine Scrn (CUTOFF=10) Ur Oxycodone Screen (VTJ1JY=166) Urine Methadone Screen (AJV0II=737) Ur Propoxyphene Screen (RXDNXY=863) Ur Barbiturates Screen (FXRFQN=225) Ur Tricyclics Screen (TOLGQR=660) Ur Phencyclidine Scrn (CUTOFF=25) Ur Amphetamine Screen (YMREYE=161) U Methamphetamines Scrn (QBEQSZ=832) U Benzodiazepines Scrn (PEEUXQ=415) U Cocaine Metab Screen (CGRIMU=917) U Marijuana (THC) Screen (CUTOFF=50) 04/18/19 Range/Units 20:35 WBC (4.23-9.07) K/mm3 RBC (4.63-6.08) M/mm3 Hgb (13.7-17.5) gm/dl Hct (40.1-51.0) % MCV (79.0-92.2) fl MCH (25.7-32.2) pg MCHC (32.2-35.5) g/dl RDW Std Deviation (35.1-43.9) fL Plt Count (163-337) K/mm3 MPV (9.4-12.3) fl Neut % (Auto) (34.0-67.9) % Lymph % (Auto) (21.8-53.1) % [place] % (Auto) (5.3-12.2) % Eos % (Auto) (0.8-7.0) Baso % (Auto) (0.1-1.2) % Neut # (Auto) (1.78-5.38) K/mm3 Lymph # (Auto) (1.32-3.57) K/mm3 [place] # (Auto) (0.30-0.82) K/mm3 Eos # (Auto) (0.04-0.54) K/mm3 Baso # (Auto) (0.01-0.08) K/mm3 Manual Slide Review PT (9.7-12.0) SECONDS INR Sodium (136-145) mEq/L Potassium (3.5-5.1) mEq/L Chloride (98-107) mEq/L Carbon Dioxide (21-32) mEq/L Anion Gap (5-15) BUN (7-18) mg/dL Creatinine (0.7-1.3) mg/dL Est Cr Clr Drug Dosing mL/min Estimated GFR (MDRD) (>60) mL/min BUN/Creatinine Ratio (14-18) Glucose (83-115) mg/dL Lactic Acid 1.2 (0.4-2.0) mmol/L Calcium (8.5-10.1) mg/dL Magnesium (1.8-2.4) mg/dl Total Bilirubin (0.2-1.0) mg/dL AST (15-37) U/L ALT (16-63) U/L Alkaline Phosphatase (46-116) U/L Troponin I (0.00-0.056) ng/mL NT-Pro-B Natriuret Pep (0-450) pg/mL Total Protein (6.4-8.2) g/dl Albumin (3.4-5.0) g/dl Globulin gm/dL Albumin/Globulin Ratio (1-2) TSH 3rd Generation (0.358-3.74) uIU/mL Urine Color (Yellow) Urine Appearance (Clear) Urine pH (5.0-8.0) Ur Specific [place] (1.005-1.030) Urine Protein (Negative) Urine Glucose (UA) (Negative) Urine Ketones (Negative) Urine Occult Blood (Negative) Urine Nitrite (Negative) Urine Bilirubin (Negative) Urine Urobilinogen (0.2-1.0) Ur Leukocyte Esterase (Negative) Urine RBC (0-5) /hpf Urine WBC (0-5) /hpf Ur Squamous Epith Cells (0-5) /hpf Urine Bacteria (FEW) /hpf Urine Mucus (FEW) /hpf Urine Opiates Screen (CRKZSF=945) Ur Buprenorphine Scrn (CUTOFF=10) Ur Oxycodone Screen (JUP1FE=897) Urine Methadone Screen (IND5OB=312) Ur Propoxyphene Screen (WBMRFZ=145) Ur Barbiturates Screen (OKKDXG=773) Ur Tricyclics Screen (XSYFEA=628) Ur Phencyclidine Scrn (CUTOFF=25) Ur Amphetamine Screen (OTOASO=640) U Methamphetamines Scrn (IJPLSD=777) U Benzodiazepines Scrn (MLZSQX=541) U Cocaine Metab Screen (KWZJRP=533) U Marijuana (THC) Screen (CUTOFF=50) Meds: Medications Discontinued Medications Generic Name Dose Route Start Last Admin Trade Name Freq PRN Reason Stop Dose Admin Azithromycin 500 mg/ Sodium 250 mls @ 250 mls/hr 04/18/19 21:46 04/18/19 22: 35 Chloride IV 04/18/19 22:45 250 mls/hr ONETIME ONE Administration Ceftriaxone Sodium 1 gm/ 100 mls @ 200 mls/hr 04/18/19 21:46 04/18/19 22:00 Sodium Chloride IV 04/18/19 22:15 200 mls/hr ONETIME ONE Administration Departure - Departure Time of Disposition: 22:08 Disposition: Admitted As Inpatient 68 Condition: Fair Clinical Impression: Community acquired pneumonia Qualifiers: Laterality: unspecified laterality Qualified Code(s): J18.9 - Pneumonia, unspecified organism - Discharge Information Sepsis Event Note - Evaluation Sepsis Screening Result: No Definite Risk - Focused Exam Vital Signs: Vital Signs Temp Pulse Resp BP Pulse Ox 04/18/19 20:09 38.2 C H 81 18 136/82 92 L Date Exam was Performed: 04/18/19 Time Exam was Performed: 22:48 - My Orders Last 24 Hours: My Active Orders 04/18/19 20:13 EKG Documentation Completion [RC] STAT Chest 1V Frontal [CR] Stat Blood Culture x2 Reflex Set [OM.PC] Stat 04/18/19 20:35 CULTURE BLOOD [BC] Stat 04/18/19 20:43 CULTURE BLOOD [BC] Stat - Assessment/Plan Last 24 Hours: My Active Orders 04/18/19 20:13 EKG Documentation Completion [RC] STAT Chest 1V Frontal [CR] Stat Blood Culture x2 Reflex Set [OM.PC] Stat 04/18/19 20:35 CULTURE BLOOD [BC] Stat 04/18/19 20:43 CULTURE BLOOD [BC] Stat
[2019-04-19] MEDS: Albuterol/Ipratropium 3.0-0.5 MG/3 ML Neb Soln NEB SCH ×7 (00:27→21:33)
--- NOTE | 2019-04-19 09:16 | PCM.HP.2 ---
H&P History of Present Illness - General Date of Service: 04/19/19 Admit Problem/Dx: Admission Diagnosis/Problem Admission Diagnosis/Problem Pneumonia - History of Present Illness Initial Comments - Free Text/Narative: 88-year-old male with dementia presented to the emergency room last night due to weakness. When I asked him why he was here this morning he stated, "my feet are stiff.", I could not get up.". Patient also states he has had a cough for 1 to 2 months. He states he lives alone during the day and sleeps at his son's at night. History provided by the emergency room note noted that patient was incontinent of urine and had loose sounding cough. Son called EMS due to weakness. In the emergency room he was found to have right-sided infiltrate on single view AP chest x-ray. He had a temperature of 100.8 on presentation to the hospital and has been afebrile since. Lactic acid was 1.2, white count 5.72 , hemoglobin 12.1, platelets 142, negative UA, BUN 18, creatinine 1.2. Pneumonia severity index of 116, class IV, estimated 30-day mortality 8.2%, suggested triage and patient. - Related Data Allergies/Adverse Reactions: Allergies Allergy/AdvReac Type Severity Reaction Status Date / Time No Known Allergies Allergy Verified 04/19/19 05:24 Home Medications: Home Meds atorvaSTATin [Lipitor] 40 mg PO BEDTIME #30 tab 11/27/13 [Rx] Warfarin Sodium 4 mg PO BEDTIME 10/07/17 [History] Furosemide [Lasix] 20 mg PO DAILY 08/14/18 [History] Digoxin 125 mcg PO DAILY 04/18/19 [History] dilTIAZem HCl [Diltiazem 24Hr ER (Xr)] 120 mg PO DAILY 04/18/19 [History] Lansoprazole [Prevacid] 30 mg PO DAILY 04/19/19 [History] MV-Mn/Iron/FA/Vit K/K.Ginseng [[employer] Tab] 1 tab PO DAILY [History] Metoprolol Succinate [Toprol XL 100mg] 100 mg PO DAILY 04/19/19 [History] Past Medical History HEENT History: Reports: Impaired Vision Cardiovascular History: Reports: Afib, High Cholesterol, Hypertension Respiratory History: Reports: None Gastrointestinal History: Reports: None Musculoskeletal History: Reports: Arthritis, Back Pain, Chronic Neurological History: Reports: CVA Oncologic (Cancer) History: Reports: Prostate Dermatologic History: Reports: None - Past Surgical History HEENT Surgical History: Reports: None Cardiovascular Surgical History: Reports: None Respiratory Surgical History: Reports: None GI Surgical History: Reports: Colonoscopy Neurological Surgical History: Reports: None Musculoskeletal Surgical History: Reports: Knee Replacement Dermatological Surgical History: Reports: None Social & Family History - Family History Family Medical History: Noncontributory - Tobacco Use Smoking Status *Q: Former Smoker Used Tobacco, but Quit: No Tobacco Use Comment: pt reports that he used to smoke and had quit a long time ago. does not remember how long ago however. Second Hand Smoke Exposure: No - Caffeine Use Caffeine Use: Reports: None - Recreational Drug Use Recreational Drug Use: No H&P Review of Systems - Review of Systems: Review Of Systems: Unable To Obtain Reason Not Obtained: Dementia Exam - Exam Exam: See Below - Vital Signs Vital Signs: Last Vital Signs Temp 98.4 F 04/19/19 08:00 Pulse 70 04/19/19 08:00 Resp 24 H 04/19/19 08:00 BP 122/75 04/19/19 08:00 Pulse Ox 96 04/19/19 08:00 Weight: 175 lb 4.8 oz - Exam Quality Assessment: No: Supplemental Oxygen General: Alert, Oriented HEENT: Conjunctiva Clear, EACs Clear, EOMI, Mucosa Moist & [place] Neck: Supple, Trachea Midline, 2 Lungs: Normal Respiratory Effort, Rhonchi (Right lower lobe) Cardiovascular: Regular Rate, Regular Rhythm GI/Abdominal Exam: Normal Bowel Sounds, Soft, Non-Tender, No Organomegaly, No Distention, No Abnormal Bruit, No Mass, Pelvis Stable Back Exam: Normal Inspection, Full Range of Motion, NT Extremities: Non-Tender, Normal Capillary Refill, Pedal Edema (2+ pitting edema right worse than left) Skin: Warm, Dry, Intact Neuro Extensive - Mental Status: Disorientation to Place, Disorientation to Time - Patient Data Lab Results Last 24 hrs: Laboratory Results - last 24 hr 04/18/19 04/18/19 04/18/19 Range/Units 20:34 20:34 20:35 WBC 5.72 (4.23-9.07) K/mm3 RBC 3.96 L (4.63-6.08) M/mm3 Hgb 12.1 L (13.7-17.5) gm/dl Hct 36.0 L (40.1-51.0) % MCV 90.9 D (79.0-92.2) fl MCH 30.6 (25.7-32.2) pg MCHC 33.6 (32.2-35.5) g/dl RDW Std Deviation 45.0 H (35.1-43.9) fL Plt Count 142 L (163-337) K/mm3 MPV 10.9 (9.4-12.3) fl Neut % (Auto) 84.4 H (34.0-67.9) % Lymph % (Auto) 5.8 L (21.8-53.1) % [place] % (Auto) 9.1 (5.3-12.2) % Eos % (Auto) 0.5 L (0.8-7.0) Baso % (Auto) 0.2 (0.1-1.2) % Neut # (Auto) 4.83 (1.78-5.38) K/mm3 Lymph # (Auto) 0.33 L (1.32-3.57) K/mm3 [place] # (Auto) 0.52 (0.30-0.82) K/mm3 Eos # (Auto) 0.03 L (0.04-0.54) K/mm3 Baso # (Auto) 0.01 (0.01-0.08) K/mm3 Manual Slide Review Abnormal smear PT (9.7-12.0) SECONDS INR Sodium (136-145) mEq/L Potassium (3.5-5.1) mEq/L Chloride (98-107) mEq/L Carbon Dioxide (21-32) mEq/L Anion Gap (5-15) BUN (7-18) mg/dL Creatinine (0.7-1.3) mg/dL Est Cr Clr Drug Dosing mL/min Estimated GFR (MDRD) (>60) mL/min BUN/Creatinine Ratio (14-18) Glucose (83-115) mg/dL Lactic Acid (0.4-2.0) mmol/L Calcium (8.5-10.1) mg/dL Magnesium (1.8-2.4) mg/dl Total Bilirubin (0.2-1.0) mg/dL AST (15-37) U/L ALT (16-63) U/L Alkaline Phosphatase (46-116) U/L Troponin I (0.00-0.056) ng/mL NT-Pro-B Natriuret Pep (0-450) pg/mL Total Protein (6.4-8.2) g/dl Albumin (3.4-5.0) g/dl Globulin gm/dL Albumin/Globulin Ratio (1-2) TSH 3rd Generation (0.358-3.74) uIU/mL Urine Color Yellow (Yellow) Urine Appearance Clear (Clear) Urine pH 6.0 (5.0-8.0) Ur Specific Marks 1.025 (1.005-1.030) Urine Protein Negative (Negative) Urine Glucose (UA) Negative (Negative) Urine Ketones Negative (Negative) Urine Occult Blood Trace-lysed H (Negative) Urine Nitrite Negative (Negative) Urine Bilirubin Negative (Negative) Urine Urobilinogen 0.2 (0.2-1.0) Ur Leukocyte Esterase Negative (Negative) Urine RBC 0-5 (0-5) /hpf Urine WBC 0-5 (0-5) /hpf Ur Squamous Epith Cells Not seen (0-5) /hpf Urine Bacteria Few (FEW) /hpf Urine Mucus Moderate H (FEW) /hpf Urine Opiates Screen Negative (PAIKMC=571) Ur Buprenorphine Scrn Negative (CUTOFF=10) Ur Oxycodone Screen Negative (GCH4MF=088) Urine Methadone Screen Negative (PAD0GT=015) Ur Propoxyphene Screen Negative (XPGXMS=062) Ur Barbiturates Screen Negative (QSBMQN=637) Ur Tricyclics Screen Negative (LMVYKE=100) Ur Phencyclidine Scrn Negative (CUTOFF=25) Ur Amphetamine Screen Negative (FNROVC=526) U Methamphetamines Scrn Negative (AHYHFU=525) U Benzodiazepines Scrn Negative (KVXVXO=878) U Cocaine Metab Screen Negative (YTWIWB=355) U Marijuana (THC) Screen Negative (CUTOFF=50) 04/18/19 04/18/19 04/18/19 Range/Units 20:35 20:35 20:35 WBC (4.23-9.07) K/mm3 RBC (4.63-6.08) M/mm3 Hgb (13.7-17.5) gm/dl Hct (40.1-51.0) % MCV (79.0-92.2) fl MCH (25.7-32.2) pg MCHC (32.2-35.5) g/dl RDW Std Deviation (35.1-43.9) fL Plt Count (163-337) K/mm3 MPV (9.4-12.3) fl Neut % (Auto) (34.0-67.9) % Lymph % (Auto) (21.8-53.1) % [place] % (Auto) (5.3-12.2) % Eos % (Auto) (0.8-7.0) Baso % (Auto) (0.1-1.2) % Neut # (Auto) (1.78-5.38) K/mm3 Lymph # (Auto) (1.32-3.57) K/mm3 [place] # (Auto) (0.30-0.82) K/mm3 Eos # (Auto) (0.04-0.54) K/mm3 Baso # (Auto) (0.01-0.08) K/mm3 Manual Slide Review PT 23.9 H D (9.7-12.0) SECONDS INR 2.30 Sodium 137 (136-145) mEq/L Potassium 4.2 (3.5-5.1) mEq/L Chloride 101 (98-107) mEq/L Carbon Dioxide 30 (21-32) mEq/L Anion Gap 10.2 (5-15) BUN 18 (7-18) mg/dL Creatinine 1.2 (0.7-1.3) mg/dL Est Cr Clr Drug Dosing 48.19 mL/min Estimated GFR (MDRD) 57 (>60) mL/min BUN/Creatinine Ratio 15.0 (14-18) Glucose 131 H (83-115) mg/dL Lactic Acid (0.4-2.0) mmol/L Calcium 8.5 (8.5-10.1) mg/dL Magnesium 1.8 (1.8-2.4) mg/dl Total Bilirubin 1.5 H (0.2-1.0) mg/dL AST 20 (15-37) U/L ALT 26 (16-63) U/L Alkaline Phosphatase 70 (46-116) U/L Troponin I < 0.017 (0.00-0.056) ng/mL NT-Pro-B Natriuret Pep 2541 H (0-450) pg/mL Total Protein 7.4 (6.4-8.2) g/dl Albumin 3.4 (3.4-5.0) g/dl Globulin 4.0 gm/dL Albumin/Globulin Ratio 0.9 L (1-2) TSH 3rd Generation 0.884 (0.358-3.74) uIU/mL Urine Color (Yellow) Urine Appearance (Clear) Urine pH (5.0-8.0) Ur Specific Marks (1.005-1.030) Urine Protein (Negative) Urine Glucose (UA) (Negative) Urine Ketones (Negative) Urine Occult Blood (Negative) Urine Nitrite (Negative) Urine Bilirubin (Negative) Urine Urobilinogen (0.2-1.0) Ur Leukocyte Esterase (Negative) Urine RBC (0-5) /hpf Urine WBC (0-5) /hpf Ur Squamous Epith Cells (0-5) /hpf Urine Bacteria (FEW) /hpf Urine Mucus (FEW) /hpf Urine Opiates Screen (WMHDAL=229) Ur Buprenorphine Scrn (CUTOFF=10) Ur Oxycodone Screen (YFA9IW=945) Urine Methadone Screen (DRH6OA=429) Ur Propoxyphene Screen (ULLPEO=751) Ur Barbiturates Screen (BACODF=209) Ur Tricyclics Screen (OARVCE=379) Ur Phencyclidine Scrn (CUTOFF=25) Ur Amphetamine Screen (LWHJZV=251) U Methamphetamines Scrn (BLAUXK=723) U Benzodiazepines Scrn (SFWTBH=814) U Cocaine Metab Screen (HFMVJY=707) U Marijuana (THC) Screen (CUTOFF=50) 04/18/19 Range/Units 20:35 WBC (4.23-9.07) K/mm3 RBC (4.63-6.08) M/mm3 Hgb (13.7-17.5) gm/dl Hct (40.1-51.0) % MCV (79.0-92.2) fl MCH (25.7-32.2) pg MCHC (32.2-35.5) g/dl RDW Std Deviation (35.1-43.9) fL Plt Count (163-337) K/mm3 MPV (9.4-12.3) fl Neut % (Auto) (34.0-67.9) % Lymph % (Auto) (21.8-53.1) % [place] % (Auto) (5.3-12.2) % Eos % (Auto) (0.8-7.0) Baso % (Auto) (0.1-1.2) % Neut # (Auto) (1.78-5.38) K/mm3 Lymph # (Auto) (1.32-3.57) K/mm3 [place] # (Auto) (0.30-0.82) K/mm3 Eos # (Auto) (0.04-0.54) K/mm3 Baso # (Auto) (0.01-0.08) K/mm3 Manual Slide Review PT (9.7-12.0) SECONDS INR Sodium (136-145) mEq/L Potassium (3.5-5.1) mEq/L Chloride (98-107) mEq/L Carbon Dioxide (21-32) mEq/L Anion Gap (5-15) BUN (7-18) mg/dL Creatinine (0.7-1.3) mg/dL Est Cr Clr Drug Dosing mL/min Estimated GFR (MDRD) (>60) mL/min BUN/Creatinine Ratio (14-18) Glucose (83-115) mg/dL Lactic Acid 1.2 (0.4-2.0) mmol/L Calcium (8.5-10.1) mg/dL Magnesium (1.8-2.4) mg/dl Total Bilirubin (0.2-1.0) mg/dL AST (15-37) U/L ALT (16-63) U/L Alkaline Phosphatase (46-116) U/L Troponin I (0.00-0.056) ng/mL NT-Pro-B Natriuret Pep (0-450) pg/mL Total Protein (6.4-8.2) g/dl Albumin (3.4-5.0) g/dl Globulin gm/dL Albumin/Globulin Ratio (1-2) TSH 3rd Generation (0.358-3.74) uIU/mL Urine Color (Yellow) Urine Appearance (Clear) Urine pH (5.0-8.0) Ur Specific Marks (1.005-1.030) Urine Protein (Negative) Urine Glucose (UA) (Negative) Urine Ketones (Negative) Urine Occult Blood (Negative) Urine Nitrite (Negative) Urine Bilirubin (Negative) Urine Urobilinogen (0.2-1.0) Ur Leukocyte Esterase (Negative) Urine RBC (0-5) /hpf Urine WBC (0-5) /hpf Ur Squamous Epith Cells (0-5) /hpf Urine Bacteria (FEW) /hpf Urine Mucus (FEW) /hpf Urine Opiates Screen (RMJVVC=311) Ur Buprenorphine Scrn (CUTOFF=10) Ur Oxycodone Screen (TUQ2FF=186) Urine Methadone Screen (ZPE6BK=580) Ur Propoxyphene Screen (HFPBQG=991) Ur Barbiturates Screen (SCOFUY=840) Ur Tricyclics Screen (PAQWPK=295) Ur Phencyclidine Scrn (CUTOFF=25) Ur Amphetamine Screen (QSDQGP=930) U Methamphetamines Scrn (YWCNNG=600) U Benzodiazepines Scrn (SOZEZF=742) U Cocaine Metab Screen (WYCYHC=375) U Marijuana (THC) Screen (CUTOFF=50) Result Diagrams: 04/19/19 09:24 04/19/19 09:29 Bon Results Last 24 hrs: Microbiology 04/18/19 22:00 Influenza Type A Antigen Screen - Final Nasal Aspirate, Unspecified NEGATIVE INFLUENZA A VIRUS AG REFERENCE RANGE: NEGATIVE Influenza Type B Antigen Screen - Final NEGATIVE INFLUENZA B VIRUS AG REFERENCE RANGE: NEGATIVE Sepsis Event Note - Evaluation Sepsis Screening Result: No Definite Risk - Focused Exam Vital Signs: Vital Signs Temp Pulse Resp BP Pulse Ox Pulse Ox 04/19/19 08:00 98.4 F 70 24 H 122/75 96 04/19/19 06:19 95 04/19/19 05:00 99.0 F 86 18 132/81 93 L 04/19/19 02:59 96 04/19/19 00:30 97 04/18/19 23:12 99.0 F 72 20 115/66 97 Date Exam was Performed: 04/19/19 Time Exam was Performed: 14:14 Problem List Initiated/Reviewed/Updated: Yes Orders Last 24hrs: Active Orders 24 hr Category Date Time Status Activity as Tolerated [RC] .Routine Care 04/19/19 00:00 Active Aspiration Precautions [RC] 09,21 Care 04/18/19 23:52 Active RT Aerosol Therapy [RC] ASDIRECTED Care 04/18/19 23:41 Active Mechanical Soft Diet [DIET] Diet 04/19/19 Breakfast Active Chest 1V Frontal [CR] Stat Exams 04/18/19 20:13 Taken CULTURE BLOOD [BC] Stat Lab 04/18/19 20:35 Received CULTURE BLOOD [BC] Stat Lab 04/18/19 20:43 Received Albuterol/Ipratropium [DuoNeb 3.0-0.5 MG/3 ML] Med 04/19/19 00:01 Active 3 ml NEB Q4HRRT Azithromycin [Zithromax] 250 mg Med 04/19/19 22:00 Ordered Sodium Chloride 0.9% [Normal Saline] 250 ml IV Q24H Digoxin [Lanoxin] Med 04/19/19 09:15 Ordered 125 mcg PO DAILY Furosemide [Lasix] Med 04/19/19 09:15 Ordered 20 mg PO DAILY Lansoprazole [Prevacid] Med 04/19/19 09:15 Ordered 30 mg PO DAILY Metoprolol Succinate Med 04/19/19 09:15 Ordered 100 mg PO DAILY atorvaSTATin Med 04/19/19 21:00 Ordered 40 mg PO BEDTIME cefTRIAXone [Rocephin] 1 gm Med 04/19/19 22:00 Active Sodium Chloride 0.9% [Normal Saline] 100 ml IV Q24H dilTIAZem HCl [Diltiazem 24Hr ER (Xr)] Med 04/19/19 09:15 Ordered 120 mg PO DAILY Code Status [Resuscitation Status] Routine Resus Stat 04/18/19 23:56 Ordered Medication Orders Albuterol/Ipratropium (Duoneb 3.0-0.5 Mg/3 Ml) 3 ml NEB Q4HRRT FARHAT Last Admin: 04/19/19 06:18 Dose: 3 ml Admin: 04/19/19 02:56 Dose: 3 ml Admin: 04/19/19 00:27 Dose: 3 ml Digoxin (Lanoxin) 125 mcg PO DAILY FARHAT Furosemide (Lasix) 20 mg PO DAILY FARHAT Ceftriaxone Sodium 1 gm/ (Sodium Chloride) 100 mls @ 200 mls/hr IV Q24H FARHAT Azithromycin 250 mg/ Sodium (Chloride) 250 mls @ 250 mls/hr IV Q24H FARHAT Stop: 04/23/19 22:01 Non-Formulary Medication (Atorvastatin) 40 mg PO BEDTIME FARHAT Non-Formulary Medication (Diltiazem Hcl [Diltiazem 24hr Er (Xr)]) 120 mg PO DAILY FARHAT Non-Formulary Medication (Lansoprazole [Prevacid]) 30 mg PO DAILY FARHAT Non-Formulary Medication (Metoprolol Succinate) 100 mg PO DAILY FARHAT Assessment/Plan Comment:: Assessment * Right lower lobe pneumonia * White count 5.72, lactic acid 1.2, initial temperature 100.8, mental status changes, elderly, heart failure * Patient given Rocephin and azithromycin in the emergency room. * Currently off O2 and saturations are in the mid 90% * Congestive heart failure -unknown type and unknown chronic versus acute * BNP 2541, no previous BNP to compare * Patient has mild lower extremity edema but does not appear to be symptomatic * Atrial fibrillation * On warfarin, metoprolol, digoxin, and diltiazem. * Rate well controlled. * Dementia -appears severe * No family to question today. * Renal insufficiency chronic versus acute. * No old records to compare renal function. Plan * Admit to MedSurg telemetry * IV Rocephin and azithromycin * Follow weights and I's and O's closely. * Give home dose of Lasix and monitor weight and symptoms closely. * Continue home meds. * FiO2 to keep O2 sats greater than 92%. * Echocardiogram in the morning. * Follow CBC, CMP, C-reactive protein, and magnesium * To discuss care and CODE STATUS with family. * VTE prophylaxis with warfarin. * Length of stay likely 2 to 3 days. - Mortality Measure Prognosis:: Poor
[2019-04-19] MEDS: Digoxin 125 MCG Tab PO SCH (10:32)
[2019-04-19] MEDS: Pantoprazole 40 MG Tab.CR PO SCH (10:33)
[2019-04-19] MEDS: Diltiazem 120 MG Cap.CD PO SCH (10:33)
[2019-04-19] MEDS: Furosemide 20 MG Tab PO SCH (10:33)
[2019-04-19] MEDS: Metoprolol Succinate 50 MG Tab.ER PO SCH (10:34)
[2019-04-19] MEDS: guaiFENesin 600 MG Tab.ER PO SCH ×2 (15:30→21:26)
[2019-04-19] MEDS ORDERED: Sodium Chloride 3% Inhalation Soln 4 ML Neb NEB SCH (16:00)
[2019-04-19] MEDS ORDERED: Warfarin 4 MG Tab PO ONE (18:00)
[2019-04-19] MEDS: Rosuvastatin 10 MG Tab PO SCH (21:26)
[2019-04-19] MEDS: cefTRIAXone 1 GM in Sodium Chloride 0.9% 100 ML IV SCH (21:26)
[2019-04-19] MEDS ORDERED: Azithromycin 250 MG in Sodium Chloride 0.9% 250 ML IV SCH (22:00)
[2019-04-19] MEDS ORDERED: Azithromycin 500 MG in Sodium Chloride 0.9% 250 ML IV SCH (22:30)
[2019-04-20] MEDS: Albuterol/Ipratropium 3.0-0.5 MG/3 ML Neb Soln NEB SCH ×6 (01:39→21:18)
--- NOTE | 2019-04-20 07:12 | CR ---
Chest: Portable view of the chest was obtained. Comparison: Prior chest x-ray of 08/14/18. Linear densities are noted within the right lung base. These appear stable from prior exam and presumably are chronic. Lungs otherwise are clear. Heart size is within normal limits for portable technique. Moderately large hiatal hernia is noted. Bony structures are grossly intact. Impression: 1. Linear densities within the right lung base which appear stable from previous chest x-ray. 2. Hiatal hernia. 3. Nothing acute is otherwise seen. Diagnostic code #2 This report was dictated in [place] Standard Time
[2019-04-20] MEDS: Pantoprazole 40 MG Tab.CR PO SCH (07:20)
[2019-04-20] MEDS: Furosemide 20 MG Tab PO SCH (08:58)
[2019-04-20] MEDS: Potassium Chloride 20 MEQ Tab.ER PO SCH ×2 (08:58→11:37)
[2019-04-20] MEDS: Digoxin 125 MCG Tab PO SCH (08:58)
[2019-04-20] MEDS: guaiFENesin 600 MG Tab.ER PO SCH ×3 (08:59→21:02)
[2019-04-20] MEDS: Diltiazem 120 MG Cap.CD PO SCH (08:59)
[2019-04-20] MEDS: Metoprolol Succinate 50 MG Tab.ER PO SCH (08:59)
--- NOTE | 2019-04-20 11:17 | PCM.PN ---
- General Info Date of Service: 04/20/19 Admission Dx/Problem (Free Text): Admission Diagnosis/Problem Admission Diagnosis/Problem Pneumonia Functional Status: Reports: Pain Controlled, Tolerating Diet, Ambulating, Urinating, Incentive Spirometry. Denies: New Symptoms - Review of Systems General: Reports: No Symptoms. Denies: Fever, Weakness, Fatigue HEENT: Reports: No Symptoms. Denies: Headaches, Sore Throat Pulmonary: Reports: No Symptoms. Denies: Shortness of Breath, Cough, Sputum, Wheezing Cardiovascular: Reports: Edema (Chronic ). Denies: Chest Pain, Palpitations, Dyspnea on Exertion Gastrointestinal: Reports: Diarrhea (chronic ). Denies: Abdominal Pain, Constipation, Nausea, Vomiting Genitourinary: Reports: No Symptoms Musculoskeletal: Reports: Foot Pain (chornic ) Skin: Reports: No Symptoms Neurological: Reports: Confusion (baseline ). Denies: Difficulty Walking, Gait Disturbance Psychiatric: Reports: No Symptoms - Patient Data Vitals - Most Recent: Last Vital Signs Temp 98.4 F 04/20/19 08:56 Pulse 75 04/20/19 08:59 Resp 17 04/20/19 08:56 BP 103/71 04/20/19 08:59 Pulse Ox 97 04/20/19 10:21 Weight - Most Recent: 175 lb 4.8 oz I&O - Last 24 Hours: Intake & Output 04/19/19 04/20/19 04/20/19 22:59 06:59 14:59 Intake Total 420 650 240 Output Total 900 400 Balance -480 250 240 Lab Results Last 24 Hours: Laboratory Results - last 24 hr 04/20/19 04/20/19 04/20/19 Range/Units 05:23 05:23 05:23 WBC 4.21 L (4.23-9.07) K/mm3 RBC 3.95 L (4.63-6.08) M/mm3 Hgb 11.8 L (13.7-17.5) gm/dl Hct 36.2 L (40.1-51.0) % MCV 91.6 (79.0-92.2) fl MCH 29.9 (25.7-32.2) pg MCHC 32.6 (32.2-35.5) g/dl RDW Std Deviation 46.0 H (35.1-43.9) fL Plt Count 143 L (163-337) K/mm3 MPV 10.9 (9.4-12.3) fl Neut % (Auto) 74.1 H (34.0-67.9) % Lymph % (Auto) 14.5 L (21.8-53.1) % [place] % (Auto) 9.5 (5.3-12.2) % Eos % (Auto) 1.2 (0.8-7.0) Baso % (Auto) 0.5 (0.1-1.2) % Neut # (Auto) 3.12 (1.78-5.38) K/mm3 Lymph # (Auto) 0.61 L (1.32-3.57) K/mm3 [place] # (Auto) 0.40 (0.30-0.82) K/mm3 Eos # (Auto) 0.05 (0.04-0.54) K/mm3 Baso # (Auto) 0.02 (0.01-0.08) K/mm3 PT 15.4 H (9.7-12.0) SECONDS INR 1.44 Sodium 138 (136-145) mEq/L Potassium 3.4 L (3.5-5.1) mEq/L Chloride 100 (98-107) mEq/L Carbon Dioxide 27 (21-32) mEq/L Anion Gap 14.4 (5-15) BUN 20 H (7-18) mg/dL Creatinine 1.1 (0.7-1.3) mg/dL Est Cr Clr Drug Dosing 52.91 mL/min Estimated GFR (MDRD) > 60 (>60) mL/min BUN/Creatinine Ratio 18.2 H (14-18) Glucose 95 (83-115) mg/dL Calcium 8.4 L (8.5-10.1) mg/dL Magnesium 1.9 (1.8-2.4) mg/dl Total Bilirubin 1.3 H (0.2-1.0) mg/dL AST 24 (15-37) U/L ALT 27 (16-63) U/L Alkaline Phosphatase 64 (46-116) U/L C-Reactive Protein 6.1 H* (<1.0) mg/dL Total Protein 7.3 (6.4-8.2) g/dl Albumin 3.2 L (3.4-5.0) g/dl Globulin 4.1 gm/dL Albumin/Globulin Ratio 0.8 L (1-2) Bon Results Last 24 Hours: Microbiology 04/18/19 20:43 Aerobic Blood Culture - Preliminary Blood - Venous - Lab Draw NO GROWTH AFTER 1 DAY Anaerobic Blood Culture - Preliminary NO GROWTH AFTER 1 DAY 04/18/19 20:35 Aerobic Blood Culture - Preliminary Blood - Venous NO GROWTH AFTER 1 DAY Anaerobic Blood Culture - Preliminary NO GROWTH AFTER 1 DAY Med Orders - Current: Current Medications Albuterol/Ipratropium (Duoneb 3.0-0.5 Mg/3 Ml) 3 ml NEB Q4HRRT [facility] Last Admin: 04/20/19 10:19 Dose: 3 ml Azithromycin (Zithromax) 250 mg PO Q24H [facility] Stop: 04/23/19 22:01 Digoxin (Lanoxin) 125 mcg PO DAILY [facility] Last Admin: 04/20/19 08:58 Dose: 125 mcg Diltiazem HCl (Cardizem Cd) 120 mg PO DAILY [facility] Last Admin: 04/20/19 08:59 Dose: 120 mg Furosemide (Lasix) 20 mg PO DAILY [facility] Last Admin: 04/20/19 08:58 Dose: 20 mg Guaifenesin (Mucinex) 600 mg PO TID [facility] Last Admin: 04/20/19 08:59 Dose: 600 mg Ceftriaxone Sodium 1 gm/ (Sodium Chloride) 100 mls @ 200 mls/hr IV Q24H [facility] Last Admin: 04/19/19 21:26 Dose: 200 mls/hr Metoprolol Succinate (Toprol Xl) 100 mg PO DAILY [facility] Last Admin: 04/20/19 08:59 Dose: 100 mg Pantoprazole Sodium (Protonix) 40 mg PO DAILY@0700 [facility] Last Admin: 04/20/19 07:20 Dose: 40 mg Potassium Chloride (Klor-Con M20) 40 meq PO Q4H [facility] Stop: 04/20/19 12:16 Last Admin: 04/20/19 08:58 Dose: 40 meq Rosuvastatin Calcium (Crestor) 10 mg PO BEDTIME [facility] Last Admin: 04/19/19 21:26 Dose: 10 mg Warfarin Sodium (Pharmacy To Dose - Warfarin) 1 dose .XX ASDIRECTED [facility] Warfarin Sodium (Coumadin) 5 mg PO ONETIME ONE Stop: 04/20/19 18:01 Discontinued Medications Azithromycin 500 mg/ Sodium (Chloride) 250 mls @ 250 mls/hr IV ONETIME ONE Stop: 04/18/19 22:45 Last Admin: 04/18/19 22:35 Dose: 250 mls/hr Ceftriaxone Sodium 1 gm/ (Sodium Chloride) 100 mls @ 200 mls/hr IV ONETIME ONE Stop: 04/18/19 22:15 Last Admin: 04/18/19 22:00 Dose: 200 mls/hr Azithromycin 500 mg/ Sodium (Chloride) 250 mls @ 250 mls/hr IV Q24H [facility] Azithromycin 250 mg/ Sodium (Chloride) 250 mls @ 250 mls/hr IV Q24H [facility] Stop: 04/23/19 22:01 Last Admin: 04/19/19 22:29 Dose: 250 mls/hr Sodium Chloride (Sodium Chloride 3%) 3 ml NEB QIDRT [facility] Warfarin Sodium (Coumadin) 4 mg PO DAILY@1800 ONE Stop: 04/19/19 18:01 Last Admin: 04/19/19 17:30 Dose: 4 mg - Exam Quality Assessment: DVT Prophylaxis. No: Supplemental Oxygen General: Alert, Cooperative, No Acute Distress. No: Oriented HEENT: Pupils Equal, Pupils Reactive, Mucous Membr. Moist/[place] Neck: Supple Lungs: Normal Respiratory Effort, Decreased Breath Sounds, Rhonchi (right side) . No: Wheezing Cardiovascular: Regular Rate (controlled), Irregular Rhythm GI/Abdominal Exam: Normal Bowel Sounds, Soft, Non-Tender, No Distention, No Abnormal Bruit (Male) Exam: Deferred Back Exam: Normal Inspection, Full Range of Motion Extremities: Normal Inspection, Normal Range of Motion, Non-Tender, Normal Capillary Refill, Pedal Edema (1-2+ pitting ) Peripheral Pulses: 2+: Radial (L), Radial (R), Dorsalis Pedis (L), Dorsalis Pedis (R) Skin: Warm, Dry, Intact Neurological: No New Focal Deficit Psy/Mental Status: Alert, Normal Affect, Normal Mood Sepsis Event Note - Evaluation Sepsis Screening Result: No Definite Risk - Focused Exam Vital Signs: Vital Signs Temp Pulse Pulse Resp BP Pulse Ox Pulse Ox 04/20/19 10:21 97 04/20/19 08:59 75 103/71 04/20/19 08:58 75 04/20/19 08:56 98.4 F 73 17 103/71 93 L 04/20/19 06:02 77 97 04/20/19 04:51 98.8 F 73 16 111/88 95 Date Exam was Performed: 04/20/19 Time Exam was Performed: 11:45 - Problem List & Annotations (1) Community acquired pneumonia SNOMED Code(s): 955618298 Code(s): J18.9 - PNEUMONIA, UNSPECIFIED ORGANISM Status: Acute Priority: High Current Visit: Yes Qualifiers: Laterality: right Lung location: lower lobe of lung Qualified Code(s): J18.9 - Pneumonia, unspecified organism (2) Atrial fibrillation SNOMED Code(s): 77435112 Code(s): I48.91 - UNSPECIFIED ATRIAL FIBRILLATION Status: Chronic Priority: Medium Current Visit: No Qualifiers: Atrial fibrillation type: unspecified Qualified Code(s): I48.91 - Unspecified atrial fibrillation (3) Congenital heart disease in adult SNOMED Code(s): 18342538 Code(s): Q24.9 - CONGENITAL MALFORMATION OF HEART, UNSPECIFIED Status: Chronic Priority: Medium Current Visit: No (4) Dementia SNOMED Code(s): 46094072 Code(s): F03.90 - UNSPECIFIED DEMENTIA WITHOUT BEHAVIORAL DISTURBANCE Status: Chronic Priority: Medium Current Visit: Yes Qualifiers: Dementia type: unspecified type Dementia behavioral disturbance: without behavioral disturbance Qualified Code(s): F03.90 - Unspecified dementia without behavioral disturbance (5) Hypokalemia SNOMED Code(s): 16902454 Code(s): E87.6 - HYPOKALEMIA Status: Acute Priority: High Current Visit : Yes (6) Chronic anticoagulation SNOMED Code(s): 060557365 Code(s): Z79.01 - JAIL (CURRENT) USE OF ANTICOAGULANTS Status: Chronic Priority: Medium Current Visit: Yes - Problem List Review Problem List Initiated/Reviewed/Updated: Yes - My Orders Last 24 Hours: My Active Orders 04/20/19 08:15 Potassium Chloride [Klor-Con M20] 40 meq PO Q4H 04/20/19 08:25 Consult to Case Management/Counsel [CONS] Routine - Plan Plan:: Assessment * Right lower lobe pneumonia * White count 5.72, lactic acid 1.2, initial temperature 100.8, mental status changes, elderly, heart failure * Patient given Rocephin and azithromycin in the emergency room. - continue * Currently off O2 and saturations are in the mid 90% * Congestive heart failure -unknown type and unknown chronic versus acute * BNP 2541, no previous BNP to compare * Patient has mild lower extremity edema but does not appear to be symptomatic * Atrial fibrillation * On warfarin, metoprolol, digoxin, and diltiazem. * Rate well controlled. * Pharmacy to does warfarin * Dementia -appears severe * No family to question today. * Renal insufficiency chronic versus acute. - Resolved * No old records to compare renal function. * Hypokalemia * Potassium 3.4 Plan * Admit to MedSurg telemetry * IV Rocephin and azithromycin * Follow weights and I's and O's closely. * Give home dose of Lasix and monitor weight and symptoms closely. * Continue home meds. * Supplement potassium * FiO2 to keep O2 sats greater than 92%. * Echocardiogram obtained and pending * Strep pneumo, legionella, RVP all pending * Follow CBC, CMP, C-reactive protein, and magnesium * To discuss care and CODE STATUS with family. * VTE prophylaxis with warfarin. * Length of stay likely discharge tomorrow.
[2019-04-20] MEDS ORDERED: Warfarin 5 MG Tab PO ONE (18:00)
[2019-04-20] MEDS: Rosuvastatin 10 MG Tab PO SCH (21:02)
[2019-04-20] MEDS: cefTRIAXone 1 GM in Sodium Chloride 0.9% 100 ML IV SCH (21:04)
[2019-04-20] MEDS ORDERED: Azithromycin 250 MG Tab PO SCH (22:00)
[2019-04-21] MEDS: Albuterol/Ipratropium 3.0-0.5 MG/3 ML Neb Soln NEB SCH ×3 (02:26→09:34)
[2019-04-21] MEDS: Pantoprazole 40 MG Tab.CR PO SCH (06:00)
--- NOTE | 2019-04-21 07:30 | PCM.DCSUM1 ---
Addendum entered and electronically signed by Car Almanzar PA-C 04/21/19 11:05 : Discharge Summary - Hospital Course Free Text/Narrative:: Inadvertently forgot to include echo obtained on 09/18/2018 in discharge summary: 1. Normal left ventricular size size and wall thickness, with normal systolic function. 2. Normal right ventricular systolic function. 3. Right ventricular size is mildly enlarged. 4. Moderately dilated left atrium. 5. Moderately dilated right atrium. 6. Aortic valve is structurally normal. 7. The mitral valve is normal in structure. 8. Trace aortic valve regurgitation. 9. Moderate tricuspid valve regurgitation. 10. Normal tricuspid valve. 11. Mild dilation of the ascending aorta. 12. Compared with study from 07/2017 there is no change in aortic dimension. 13. The right ventricular systolic pressure is borderline at 41.9 mmHg. 14. Inferior vena cava is normal. Diagnosis: Stroke: No - Discharge Data Discharge Date: 04/21/19 Discharge Disposition: Home, W Home Health Agency 06 Condition: Good - Referral to Home Health Date of Face to Face Encounter: 04/21/19 Reason for Homebound Status: see below Primary Care Physician: PCP None Skilled Need: see below - Discharge Diagnosis/Problem(s) (1) Community acquired pneumonia SNOMED Code(s): 214972278 ICD Code: J18.9 - PNEUMONIA, UNSPECIFIED ORGANISM Status: Acute Priority : High Current Visit: Yes Qualifiers: Laterality: right Lung location: lower lobe of lung Qualified Code(s): J18.9 - Pneumonia, unspecified organism (2) Atrial fibrillation SNOMED Code(s): 73516356 ICD Code: I48.91 - UNSPECIFIED ATRIAL FIBRILLATION Status: Chronic Priority: Medium Current Visit: No Qualifiers: Atrial fibrillation type: unspecified Qualified Code(s): I48.91 - Unspecified atrial fibrillation (3) Congenital heart disease in adult SNOMED Code(s): 67429575 ICD Code: Q24.9 - CONGENITAL MALFORMATION OF HEART, UNSPECIFIED Status: Chronic Priority: Medium Current Visit: No (4) Dementia SNOMED Code(s): 87141970 ICD Code: F03.90 - UNSPECIFIED DEMENTIA WITHOUT BEHAVIORAL DISTURBANCE Status: Chronic Priority: Medium Current Visit: Yes Qualifiers: Dementia type: unspecified type Dementia behavioral disturbance: without behavioral disturbance Qualified Code(s): F03.90 - Unspecified dementia without behavioral disturbance (5) Hypokalemia SNOMED Code(s): 61464868 ICD Code: E87.6 - HYPOKALEMIA Status: Resolved Priority: High Current Visit: Yes (6) Chronic anticoagulation SNOMED Code(s): 030170104 ICD Code: Z79.01 - MEDICAL LABORATORY MANAGER (CURRENT) USE OF ANTICOAGULANTS Status: Chronic Priority: Medium Current Visit: Yes (7) Human metapneumovirus (hMPV) pneumonia SNOMED Code(s): 031035434 ICD Code: J12.3 - HUMAN METAPNEUMOVIRUS PNEUMONIA Status: Acute Priority : High Current Visit: Yes - Patient Summary/Data Consults: Consultations 04/20/19 08:00 Consult to Occupational Therapy [OT Evaluation and Treatment] [CONS] Routine Consult to Physical Therapy [PT Evaluation and Treatment] [CONS] Routine 04/20/19 08:25 Consult to Case Management/Provider Relations Representative [CONS] Routine - Patient Instructions Diet: Mechanical Soft Activity: As Tolerated Driving: Do Not Drive Showering/Bathing: May Shower Notify Provider of: Fever, Increased Pain, Nausea and/or Vomiting Other/Special Instructions: Follow-up with primary care provider within 5-7 days of discharge, sooner if needed. Take your antibiotic as prescribed and until completed, even if your feel 100% better. Continue to utilize your incentive spirometry (clear/blue device you inhale through) and your acapella ( green tube you blow through) until your symptoms resolve. Should symtpoms return or worsen contact your primary care provider or return to the Emergency Departemnt. - Discharge Plan *PRESCRIPTION DRUG MONITORING PROGRAM REVIEWED*: No *COPY OF PRESCRIPTION DRUG MONITORING REPORT IN PATIENT DINORAH: No Prescriptions/Med Rec: Azithromycin [Zithromax] 250 mg PO Q24H 3 Days #3 tablet Cefdinir [Omnicef] 300 mg PO BID #8 cap Home Medications: Home Meds atorvaSTATin [Lipitor] 40 mg PO BEDTIME #30 tab 11/27/13 [Rx] Warfarin Sodium 4 mg PO BEDTIME 10/07/17 [History] Furosemide [Lasix] 20 mg PO DAILY 08/14/18 [History] Digoxin 125 mcg PO DAILY 04/18/19 [History] dilTIAZem HCl [Diltiazem 24Hr ER (Xr)] 120 mg PO DAILY 04/18/19 [History] Lansoprazole [Prevacid] 30 mg PO DAILY 04/19/19 [History] MV-Mn/Iron/FA/Vit K/K.Ginseng [Cent[employer] Tab] 1 tab PO DAILY [History] Metoprolol Succinate [Toprol XL 100mg] 100 mg PO DAILY 04/19/19 [History] Azithromycin [Zithromax] 250 mg PO Q24H 3 Days #3 tablet 04/21/19 [Rx] Cefdinir [Omnicef] 300 mg PO BID #8 cap 04/21/19 [Rx] Oxygen Therapy Mode: Room Air Patient Handouts: Sepsis, Adult, Heart Failure, Community-Acquired Pneumonia, Adult, [id number] Forms: ED Department Discharge Referrals: Vishal Boudreaux MD [Ordering Only Provider] - 04/28/19 11:00 am (Please follow-up with your primary care provider, Vishla Boudreaux, on SaturdayApril 28 at 1100 ) - Discharge Summary/Plan Comment DC Time >30 min.: Yes (45 mins ) - Patient Data Vitals - Most Recent: Last Vital Signs Temp 98.2 F 04/21/19 07:55 Pulse 96 04/21/19 08:01 Resp 19 04/21/19 07:55 BP 131/78 04/21/19 08:01 Pulse Ox 92 L 04/21/19 09:34 Weight - Most Recent: 175 lb 14.4 oz I&O - Last 24 hours: Intake & Output 04/20/19 04/21/19 04/21/19 22:59 06:59 14:59 Intake Total 1360 300 240 Output Total 500 Balance 860 300 240 Lab Results - Last 24 hrs: Laboratory Results - last 24 hr 04/19/19 04/21/19 04/21/19 Range/Units 10:20 05:58 05:58 WBC 3.65 L (4.23-9.07) K/mm3 RBC 3.74 L (4.63-6.08) M/mm3 Hgb 11.1 L (13.7-17.5) gm/dl Hct 34.1 L (40.1-51.0) % MCV 91.2 (79.0-92.2) fl MCH 29.7 (25.7-32.2) pg MCHC 32.6 (32.2-35.5) g/dl RDW Std Deviation 45.4 H (35.1-43.9) fL Plt Count 141 L (163-337) K/mm3 MPV 10.7 (9.4-12.3) fl Neut % (Auto) 72.9 H (34.0-67.9) % Lymph % (Auto) 14.5 L (21.8-53.1) % Hawkins % (Auto) 11.2 (5.3-12.2) % Eos % (Auto) 0.8 (0.8-7.0) Baso % (Auto) 0.3 (0.1-1.2) % Neut # (Auto) 2.66 (1.78-5.38) K/mm3 Lymph # (Auto) 0.53 L (1.32-3.57) K/mm3 Hawkins # (Auto) 0.41 (0.30-0.82) K/mm3 Eos # (Auto) 0.03 L (0.04-0.54) K/mm3 Baso # (Auto) 0.01 (0.01-0.08) K/mm3 PT 15.7 H (9.7-12.0) SECONDS INR 1.47 Sodium (136-145) mEq/L Potassium (3.5-5.1) mEq/L Chloride (98-107) mEq/L Carbon Dioxide (21-32) mEq/L Anion Gap (5-15) BUN (7-18) mg/dL Creatinine (0.7-1.3) mg/dL Est Cr Clr Drug Dosing mL/min Estimated GFR (MDRD) (>60) mL/min BUN/Creatinine Ratio (14-18) Glucose (83-115) mg/dL Calcium (8.5-10.1) mg/dL Magnesium (1.8-2.4) mg/dl Total Bilirubin (0.2-1.0) mg/dL AST (15-37) U/L ALT (16-63) U/L Alkaline Phosphatase (46-116) U/L C-Reactive Protein (<1.0) mg/dL Total Protein (6.4-8.2) g/dl Albumin (3.4-5.0) g/dl Globulin gm/dL Albumin/Globulin Ratio (1-2) Adenovirus (PCR) Not detected (Not Detected) B. pertussis DNA (PCR) Not detected (Not Detected) B.parapertussis DNA PCR Not detected (Not Detected) C. pneumoniae DNA (PCR) Not detected (Not Detected) Coronavirus (PCR) Not detected (Not Detected) Human Metapneumovir PCR Detected H (Not Detected) Influenza A (RT-PCR) Not detected (Not Detected) Influenza B (RT-PCR) Not detected (Not Detected) M. pneumoniae (PCR) Not detected (Not Detected) Parainfluen 1,2,3,4 PCR Not detected (Not Detected) RSV (PCR) Not detected (Not Detected) Entero/Rhino (PCR) Not detected (Not Detected) 04/21/19 Range/Units 05:58 WBC (4.23-9.07) K/mm3 RBC (4.63-6.08) M/mm3 Hgb (13.7-17.5) gm/dl Hct (40.1-51.0) % MCV (79.0-92.2) fl MCH (25.7-32.2) pg MCHC (32.2-35.5) g/dl RDW Std Deviation (35.1-43.9) fL Plt Count (163-337) K/mm3 MPV (9.4-12.3) fl Neut % (Auto) (34.0-67.9) % Lymph % (Auto) (21.8-53.1) % Hawkins % (Auto) (5.3-12.2) % Eos % (Auto) (0.8-7.0) Baso % (Auto) (0.1-1.2) % Neut # (Auto) (1.78-5.38) K/mm3 Lymph # (Auto) (1.32-3.57) K/mm3 Hawkins # (Auto) (0.30-0.82) K/mm3 Eos # (Auto) (0.04-0.54) K/mm3 Baso # (Auto) (0.01-0.08) K/mm3 PT (9.7-12.0) SECONDS INR Sodium 143 (136-145) mEq/L Potassium 4.0 (3.5-5.1) mEq/L Chloride 105 (98-107) mEq/L Carbon Dioxide 25 (21-32) mEq/L Anion Gap 17.0 H (5-15) BUN 21 H (7-18) mg/dL Creatinine 1.0 (0.7-1.3) mg/dL Est Cr Clr Drug Dosing 58.20 mL/min Estimated GFR (MDRD) > 60 (>60) mL/min BUN/Creatinine Ratio 21.0 H (14-18) Glucose 96 (83-115) mg/dL Calcium 8.2 L (8.5-10.1) mg/dL Magnesium 1.8 (1.8-2.4) mg/dl Total Bilirubin 0.8 (0.2-1.0) mg/dL AST 21 (15-37) U/L ALT 26 (16-63) U/L Alkaline Phosphatase 59 (46-116) U/L C-Reactive Protein 4.5 H* (<1.0) mg/dL Total Protein 6.6 (6.4-8.2) g/dl Albumin 2.9 L (3.4-5.0) g/dl Globulin 3.7 gm/dL Albumin/Globulin Ratio 0.8 L (1-2) Adenovirus (PCR) (Not Detected) B. pertussis DNA (PCR) (Not Detected) B.parapertussis DNA PCR (Not Detected) C. pneumoniae DNA (PCR) (Not Detected) Coronavirus (PCR) (Not Detected) Human Metapneumovir PCR (Not Detected) Influenza A (RT-PCR) (Not Detected) Influenza B (RT-PCR) (Not Detected) M. pneumoniae (PCR) (Not Detected) Parainfluen 1,2,3,4 PCR (Not Detected) RSV (PCR) (Not Detected) Entero/Rhino (PCR) (Not Detected) LEOBARDO Results - Last 24 hrs: Microbiology 04/18/19 20:43 Aerobic Blood Culture - Preliminary Blood - Venous - Lab Draw NO GROWTH AFTER 2 DAYS Anaerobic Blood Culture - Preliminary NO GROWTH AFTER 2 DAYS 04/18/19 20:35 Aerobic Blood Culture - Preliminary Blood - Venous NO GROWTH AFTER 2 DAYS Anaerobic Blood Culture - Preliminary NO GROWTH AFTER 2 DAYS 04/18/19 20:35 Streptococcus pneumoniae Antigen (M - Final Urine 04/19/19 12:06 Legionella Urinary Antigen - Final Urine Med Orders - Current: Current Medications Albuterol/Ipratropium (Duoneb 3.0-0.5 Mg/3 Ml) 3 ml NEB Q4HRRT [facility] Last Admin: 04/21/19 09:34 Dose: 3 ml Azithromycin (Zithromax) 250 mg PO Q24H [facility] Stop: 04/23/19 22:01 Last Admin: 04/20/19 21:02 Dose: 250 mg Digoxin (Lanoxin) 125 mcg PO DAILY [facility] Last Admin: 04/21/19 08:01 Dose: 125 mcg Diltiazem HCl (Cardizem Cd) 120 mg PO DAILY [facility] Last Admin: 04/21/19 08:01 Dose: 120 mg Furosemide (Lasix) 20 mg PO DAILY [facility] Last Admin: 04/21/19 08:01 Dose: 20 mg Guaifenesin (Mucinex) 600 mg PO TID [facility] Last Admin: 04/21/19 08:01 Dose: 600 mg Ceftriaxone Sodium 1 gm/ (Sodium Chloride) 100 mls @ 200 mls/hr IV Q24H [facility] Last Admin: 04/20/19 21:04 Dose: 200 mls/hr Metoprolol Succinate (Toprol Xl) 100 mg PO DAILY [facility] Last Admin: 04/21/19 08:00 Dose: 100 mg Pantoprazole Sodium (Protonix) 40 mg PO DAILY@0700 [facility] Last Admin: 04/21/19 06:00 Dose: 40 mg Rosuvastatin Calcium (Crestor) 10 mg PO BEDTIME [facility] Last Admin: 04/20/19 21:02 Dose: 10 mg Warfarin Sodium (Pharmacy To Dose - Warfarin) 1 dose .XX ASDIRECTED [facility] Discontinued Medications Azithromycin 500 mg/ Sodium (Chloride) 250 mls @ 250 mls/hr IV ONETIME ONE Stop: 04/18/19 22:45 Last Admin: 04/18/19 22:35 Dose: 250 mls/hr Ceftriaxone Sodium 1 gm/ (Sodium Chloride) 100 mls @ 200 mls/hr IV ONETIME ONE Stop: 04/18/19 22:15 Last Admin: 04/18/19 22:00 Dose: 200 mls/hr Azithromycin 500 mg/ Sodium (Chloride) 250 mls @ 250 mls/hr IV Q24H [facility] Azithromycin 250 mg/ Sodium (Chloride) 250 mls @ 250 mls/hr IV Q24H [facility] Stop: 04/23/19 22:01 Last Admin: 04/19/19 22:29 Dose: 250 mls/hr Potassium Chloride (Klor-Con M20) 40 meq PO Q4H [facility] Stop: 04/20/19 12:16 Last Admin: 04/20/19 11:37 Dose: 40 meq Sodium Chloride (Sodium Chloride 3%) 3 ml NEB QIDRT [facility] Warfarin Sodium (Coumadin) 4 mg PO DAILY@1800 ONE Stop: 04/19/19 18:01 Last Admin: 04/19/19 17:30 Dose: 4 mg Warfarin Sodium (Coumadin) 5 mg PO ONETIME ONE Stop: 04/20/19 18:01 Last Admin: 04/20/19 17:48 Dose: 5 mg Original Note: Discharge Summary - Hospital Course HPI Initial Comments: 88-year-old male with dementia presented to the emergency room last night due to weakness. When I asked him why he was here this morning he stated, "my feet are stiff.", I could not get up.". Patient also states he has had a cough for 1 to 2 months. He states he lives alone during the day and sleeps at his son's at night. History provided by the emergency room note noted that patient was incontinent of urine and had loose sounding cough. Son called EMS due to weakness. In the emergency room he was found to have right-sided infiltrate on single view AP chest x-ray. He had a temperature of 100.8 on presentation to the hospital and has been afebrile since. Lactic acid was 1.2, white count 5.72 , hemoglobin 12.1, platelets 142, negative UA, BUN 18, creatinine 1.2. Pneumonia severity index of 116, class IV, estimated 30-day mortality 8.2%, suggested triage and patient. Diagnosis: Stroke: No - Discharge Data Discharge Date: 04/21/19 (Admit date: 04/18/19) Discharge Disposition: Home, W Home Health Agency 06 Condition: Good - Referral to Home Health Date of Face to Face Encounter: 04/21/19 Reason for Homebound Status: see below Primary Care Physician: PCP None Skilled Need: see below - Discharge Diagnosis/Problem(s) (1) Community acquired pneumonia SNOMED Code(s): 055534836 ICD Code: J18.9 - PNEUMONIA, UNSPECIFIED ORGANISM Status: Acute Priority : High Current Visit: Yes Qualifiers: Laterality: right Lung location: lower lobe of lung Qualified Code(s): J18.9 - Pneumonia, unspecified organism (2) Atrial fibrillation SNOMED Code(s): 98000797 ICD Code: I48.91 - UNSPECIFIED ATRIAL FIBRILLATION Status: Chronic Priority: Medium Current Visit: No Qualifiers: Atrial fibrillation type: unspecified Qualified Code(s): I48.91 - Unspecified atrial fibrillation (3) Congenital heart disease in adult SNOMED Code(s): 05319756 ICD Code: Q24.9 - CONGENITAL MALFORMATION OF HEART, UNSPECIFIED Status: Chronic Priority: Medium Current Visit: No (4) Dementia SNOMED Code(s): 47700119 ICD Code: F03.90 - UNSPECIFIED DEMENTIA WITHOUT BEHAVIORAL DISTURBANCE Status: Chronic Priority: Medium Current Visit: Yes Qualifiers: Dementia type: unspecified type Dementia behavioral disturbance: without behavioral disturbance Qualified Code(s): F03.90 - Unspecified dementia without behavioral disturbance (5) Hypokalemia SNOMED Code(s): 23261271 ICD Code: E87.6 - HYPOKALEMIA Status: Resolved Priority: High Current Visit: Yes (6) Chronic anticoagulation SNOMED Code(s): 408646031 ICD Code: Z79.01 - MEDICAL LABORATORY MANAGER (CURRENT) USE OF ANTICOAGULANTS Status: Chronic Priority: Medium Current Visit: Yes (7) Human metapneumovirus (hMPV) pneumonia SNOMED Code(s): 186152469 ICD Code: J12.3 - HUMAN METAPNEUMOVIRUS PNEUMONIA Status: Acute Priority : High Current Visit: Yes - Patient Summary/Data Consults: Consultations 04/20/19 08:00 Consult to Occupational Therapy [OT Evaluation and Treatment] [CONS] Routine Consult to Physical Therapy [PT Evaluation and Treatment] [CONS] Routine 04/20/19 08:25 Consult to Case Management/Provider Relations Representative [CONS] Routine Labs Pending at D/C: None Recommended Follow-up Testing/Procedures: Follow-up with primary care provider within 5-7 days of discharge. Hospital Course: Lorenzo was admitted to the hospital floor for weakness and pneumonia. He was started on Rocephin and azithromycin while in the ED and this was continued with good results. He never did require any oxygen his lung sounds did improve. He was noted to have some baseline confusion although he was able to carry on a pretty good conversation. He did work with PT/OT and they were recommending home health PT and a home safety eval at discharge. His weakness did improve and he said he felt back to baseline prior to discharge. Strep pneumo and mycoplasma were negative however his respiratory viral panel did return positive for human metapneumovirus. These results were discussed with the patient and he is aware that he might not feel 100% for a little while. He did utilize an incentive spirometer and Acapella and he was instructed to continue using both of these until his symptoms resolved. He was discharged on 3 more days of 250 mg p.o. azithromycin with his first dose tonight, 2018. He was also discharged on 4 days of 300 mg p.o. Omnicef twice daily. His first dose of this should be tonight, 04/21/2019. He was instructed to follow-up with his primary care provider within 5 to 7 days of discharge. He was also instructed to follow-up with his primary care provider or return to the emergency room should symptoms return or worsen. He was discharged home today. All medications were continued. His INR was somewhat variable while here and is felt he might of missed a warfarin dose. He will be discharged back on his home dosing. I personally met with Lorenzo [id number] to discuss his homebound status and need for continued home health services. Lorenzo did see physical therapy and Occupational Therapy while here they are recommending continued physical therapy at discharge. This will help with his weakness and difficulty ambulating. It is felt that he will be homebound due to difficulty with transportation and also difficulty with ambulation and weakness. They are also recommending he have a home safety eval performed by OT after discharge to ensure his home is a safe as it can be. These services can be monitored by his PCP, Dr. Boudreaux, and adjusted as he sees fit after discharge. - Patient Instructions Diet: Mechanical Soft Activity: As Tolerated Driving: Do Not Drive Showering/Bathing: May Shower Notify Provider of: Fever, Increased Pain, Nausea and/or Vomiting Other/Special Instructions: Follow-up with primary care provider within 5-7 days of discharge, sooner if needed. Take your antibiotic as prescribed and until completed, even if your feel 100% better. Continue to utilize your incentive spirometry (clear/blue device you inhale through) and your acapella ( green tube you blow through) until your symptoms resolve. Should symtpoms return or worsen contact your primary care provider or return to the Emergency Departemnt. - Discharge Plan *PRESCRIPTION DRUG MONITORING PROGRAM REVIEWED*: No *COPY OF PRESCRIPTION DRUG MONITORING REPORT IN PATIENT DINORAH: No Prescriptions/Med Rec: Azithromycin [Zithromax] 250 mg PO Q24H 3 Days #3 tablet Cefdinir [Omnicef] 300 mg PO BID #8 cap Home Medications: Home Meds atorvaSTATin [Lipitor] 40 mg PO BEDTIME #30 tab 11/27/13 [Rx] Warfarin Sodium 4 mg PO BEDTIME 10/07/17 [History] Furosemide [Lasix] 20 mg PO DAILY 08/14/18 [History] Digoxin 125 mcg PO DAILY 04/18/19 [History] dilTIAZem HCl [Diltiazem 24Hr ER (Xr)] 120 mg PO DAILY 04/18/19 [History] Lansoprazole [Prevacid] 30 mg PO DAILY 04/19/19 [History] MV-Mn/Iron/FA/Vit K/K.Ginseng [Centrum [employer] Tab] 1 tab PO DAILY [History] Metoprolol Succinate [Toprol XL 100mg] 100 mg PO DAILY 04/19/19 [History] Azithromycin [Zithromax] 250 mg PO Q24H 3 Days #3 tablet 04/21/19 [Rx] Cefdinir [Omnicef] 300 mg PO BID #8 cap 04/21/19 [Rx] Oxygen Therapy Mode: Room Air Patient Handouts: Sepsis, Adult, Heart Failure, Community-Acquired Pneumonia, Adult, [id number] Forms: ED Department Discharge Referrals: Vishal Boudreaux MD [Ordering Only Provider] - 04/28/19 11:00 am (Please follow-up with your primary care provider, Vishal Boudreaux, on SaturdayApril 28 at 1100 ) - Discharge Summary/Plan Comment DC Time >30 min.: Yes (45 mins ) - General Info Date of Service: 04/21/19 Admission Dx/Problem (Free Text: Admission Diagnosis/Problem Admission Diagnosis/Problem Pneumonia Functional Status: Reports: Pain Controlled, Tolerating Diet, Ambulating, Urinating, Incentive Spirometry, Other (acapella ). Denies: New Symptoms - Review of Systems General: Reports: No Symptoms. Denies: Fever, Weakness, Fatigue, Malaise, Chills HEENT: Reports: No Symptoms. Denies: Headaches, Sore Throat Pulmonary: Reports: No Symptoms. Denies: Shortness of Breath, Pleuritic Chest Pain, Cough, Sputum, Wheezing Cardiovascular: Reports: Edema (Chronic ). Denies: Chest Pain, Palpitations, Dyspnea on Exertion Gastrointestinal: Reports: Diarrhea (chronic ). Denies: Abdominal Pain, Constipation, Nausea, Vomiting Genitourinary: Reports: No Symptoms. Denies: Pain Musculoskeletal: Reports: Foot Pain (chronic ) Skin: Reports: No Symptoms. Denies: Cyanosis Neurological: Reports: No Symptoms. Denies: Confusion (Occasional baseline confusion but none currently ), Pre-Existing Deficit, Trouble Speaking, Difficulty Walking, Gait Disturbance Psychiatric: Reports: No Symptoms - Patient Data Vitals - Most Recent: Last Vital Signs Temp 98.1 F 04/21/19 06:01 Pulse 79 04/21/19 06:01 Resp 18 04/21/19 06:01 BP 124/90 04/21/19 06:01 Pulse Ox 93 L 04/21/19 06:45 Weight - Most Recent: 175 lb 14.4 oz I&O - Last 24 hours: Intake & Output 04/20/19 04/21/19 04/21/19 22:59 06:59 14:59 Intake Total 1360 300 Output Total 500 Balance 860 300 Lab Results - Last 24 hrs: Laboratory Results - last 24 hr 04/19/19 04/21/19 04/21/19 Range/Units 10:20 05:58 05:58 WBC 3.65 L (4.23-9.07) K/mm3 RBC 3.74 L (4.63-6.08) M/mm3 Hgb 11.1 L (13.7-17.5) gm/dl Hct 34.1 L (40.1-51.0) % MCV 91.2 (79.0-92.2) fl MCH 29.7 (25.7-32.2) pg MCHC 32.6 (32.2-35.5) g/dl RDW Std Deviation 45.4 H (35.1-43.9) fL Plt Count 141 L (163-337) K/mm3 MPV 10.7 (9.4-12.3) fl Neut % (Auto) 72.9 H (34.0-67.9) % Lymph % (Auto) 14.5 L (21.8-53.1) % Hawkins % (Auto) 11.2 (5.3-12.2) % Eos % (Auto) 0.8 (0.8-7.0) Baso % (Auto) 0.3 (0.1-1.2) % Neut # (Auto) 2.66 (1.78-5.38) K/mm3 Lymph # (Auto) 0.53 L (1.32-3.57) K/mm3 Hawkins # (Auto) 0.41 (0.30-0.82) K/mm3 Eos # (Auto) 0.03 L (0.04-0.54) K/mm3 Baso # (Auto) 0.01 (0.01-0.08) K/mm3 PT 15.7 H (9.7-12.0) SECONDS INR 1.47 Sodium (136-145) mEq/L Potassium (3.5-5.1) mEq/L Chloride (98-107) mEq/L Carbon Dioxide (21-32) mEq/L Anion Gap (5-15) BUN (7-18) mg/dL Creatinine (0.7-1.3) mg/dL Est Cr Clr Drug Dosing mL/min Estimated GFR (MDRD) (>60) mL/min BUN/Creatinine Ratio (14-18) Glucose (83-115) mg/dL Calcium (8.5-10.1) mg/dL Magnesium (1.8-2.4) mg/dl Total Bilirubin (0.2-1.0) mg/dL AST (15-37) U/L ALT (16-63) U/L Alkaline Phosphatase (46-116) U/L C-Reactive Protein (<1.0) mg/dL Total Protein (6.4-8.2) g/dl Albumin (3.4-5.0) g/dl Globulin gm/dL Albumin/Globulin Ratio (1-2) Adenovirus (PCR) Not detected (Not Detected) B. pertussis DNA (PCR) Not detected (Not Detected) B.parapertussis DNA PCR Not detected (Not Detected) C. pneumoniae DNA (PCR) Not detected (Not Detected) Coronavirus (PCR) Not detected (Not Detected) Human Metapneumovir PCR Detected H (Not Detected) Influenza A (RT-PCR) Not detected (Not Detected) Influenza B (RT-PCR) Not detected (Not Detected) M. pneumoniae (PCR) Not detected (Not Detected) Parainfluen 1,2,3,4 PCR Not detected (Not Detected) RSV (PCR) Not detected (Not Detected) Entero/Rhino (PCR) Not detected (Not Detected) 04/21/19 Range/Units 05:58 WBC (4.23-9.07) K/mm3 RBC (4.63-6.08) M/mm3 Hgb (13.7-17.5) gm/dl Hct (40.1-51.0) % MCV (79.0-92.2) fl MCH (25.7-32.2) pg MCHC (32.2-35.5) g/dl RDW Std Deviation (35.1-43.9) fL Plt Count (163-337) K/mm3 MPV (9.4-12.3) fl Neut % (Auto) (34.0-67.9) % Lymph % (Auto) (21.8-53.1) % Hawkins % (Auto) (5.3-12.2) % Eos % (Auto) (0.8-7.0) Baso % (Auto) (0.1-1.2) % Neut # (Auto) (1.78-5.38) K/mm3 Lymph # (Auto) (1.32-3.57) K/mm3 Hawkins # (Auto) (0.30-0.82) K/mm3 Eos # (Auto) (0.04-0.54) K/mm3 Baso # (Auto) (0.01-0.08) K/mm3 PT (9.7-12.0) SECONDS INR Sodium 143 (136-145) mEq/L Potassium 4.0 (3.5-5.1) mEq/L Chloride 105 (98-107) mEq/L Carbon Dioxide 25 (21-32) mEq/L Anion Gap 17.0 H (5-15) BUN 21 H (7-18) mg/dL Creatinine 1.0 (0.7-1.3) mg/dL Est Cr Clr Drug Dosing 58.20 mL/min Estimated GFR (MDRD) > 60 (>60) mL/min BUN/Creatinine Ratio 21.0 H (14-18) Glucose 96 (83-115) mg/dL Calcium 8.2 L (8.5-10.1) mg/dL Magnesium 1.8 (1.8-2.4) mg/dl Total Bilirubin 0.8 (0.2-1.0) mg/dL AST 21 (15-37) U/L ALT 26 (16-63) U/L Alkaline Phosphatase 59 (46-116) U/L C-Reactive Protein 4.5 H* (<1.0) mg/dL Total Protein 6.6 (6.4-8.2) g/dl Albumin 2.9 L (3.4-5.0) g/dl Globulin 3.7 gm/dL Albumin/Globulin Ratio 0.8 L (1-2) Adenovirus (PCR) (Not Detected) B. pertussis DNA (PCR) (Not Detected) B.parapertussis DNA PCR (Not Detected) C. pneumoniae DNA (PCR) (Not Detected) Coronavirus (PCR) (Not Detected) Human Metapneumovir PCR (Not Detected) Influenza A (RT-PCR) (Not Detected) Influenza B (RT-PCR) (Not Detected) M. pneumoniae (PCR) (Not Detected) Parainfluen 1,2,3,4 PCR (Not Detected) RSV (PCR) (Not Detected) Entero/Rhino (PCR) (Not Detected) [facility]ARDO Results - Last 24 hrs: Microbiology 04/18/19 20:43 Aerobic Blood Culture - Preliminary Blood - Venous - Lab Draw NO GROWTH AFTER 2 DAYS Anaerobic Blood Culture - Preliminary NO GROWTH AFTER 2 DAYS 04/18/19 20:35 Aerobic Blood Culture - Preliminary Blood - Venous NO GROWTH AFTER 2 DAYS Anaerobic Blood Culture - Preliminary NO GROWTH AFTER 2 DAYS 04/18/19 20:35 Streptococcus pneumoniae Antigen (M - Final Urine 04/19/19 12:06 Legionella Urinary Antigen - Final Urine Med Orders - Current: Current Medications Albuterol/Ipratropium (Duoneb 3.0-0.5 Mg/3 Ml) 3 ml NEB Q4HRRT [facility] Last Admin: 04/21/19 06:43 Dose: 3 ml Azithromycin (Zithromax) 250 mg PO Q24H [facility] Stop: 04/23/19 22:01 Last Admin: 04/20/19 21:02 Dose: 250 mg Digoxin (Lanoxin) 125 mcg PO DAILY [facility] Last Admin: 04/20/19 08:58 Dose: 125 mcg Diltiazem HCl (Cardizem Cd) 120 mg PO DAILY [facility] Last Admin: 04/20/19 08:59 Dose: 120 mg Furosemide (Lasix) 20 mg PO DAILY [facility] Last Admin: 04/20/19 08:58 Dose: 20 mg Guaifenesin (Mucinex) 600 mg PO TID [facility] Last Admin: 04/20/19 21:02 Dose: 600 mg Ceftriaxone Sodium 1 gm/ (Sodium Chloride) 100 mls @ 200 mls/hr IV Q24H [facility] Last Admin: 04/20/19 21:04 Dose: 200 mls/hr Metoprolol Succinate (Toprol Xl) 100 mg PO DAILY [facility] Last Admin: 04/20/19 08:59 Dose: 100 mg Pantoprazole Sodium (Protonix) 40 mg PO DAILY@0700 [facility] Last Admin: 04/21/19 06:00 Dose: 40 mg Rosuvastatin Calcium (Crestor) 10 mg PO BEDTIME [facility] Last Admin: 04/20/19 21:02 Dose: 10 mg Warfarin Sodium (Pharmacy To Dose - Warfarin) 1 dose .XX ASDIRECTED [facility] Discontinued Medications Azithromycin 500 mg/ Sodium (Chloride) 250 mls @ 250 mls/hr IV ONETIME ONE Stop: 04/18/19 22:45 Last Admin: 04/18/19 22:35 Dose: 250 mls/hr Ceftriaxone Sodium 1 gm/ (Sodium Chloride) 100 mls @ 200 mls/hr IV ONETIME ONE Stop: 04/18/19 22:15 Last Admin: 04/18/19 22:00 Dose: 200 mls/hr Azithromycin 500 mg/ Sodium (Chloride) 250 mls @ 250 mls/hr IV Q24H [facility] Azithromycin 250 mg/ Sodium (Chloride) 250 mls @ 250 mls/hr IV Q24H [facility] Stop: 04/23/19 22:01 Last Admin: 04/19/19 22:29 Dose: 250 mls/hr Potassium Chloride (Klor-Con M20) 40 meq PO Q4H [facility] Stop: 04/20/19 12:16 Last Admin: 04/20/19 11:37 Dose: 40 meq Sodium Chloride (Sodium Chloride 3%) 3 ml NEB QIDRT [facility] Warfarin Sodium (Coumadin) 4 mg PO DAILY@1800 ONE Stop: 04/19/19 18:01 Last Admin: 04/19/19 17:30 Dose: 4 mg Warfarin Sodium (Coumadin) 5 mg PO ONETIME ONE Stop: 04/20/19 18:01 Last Admin: 04/20/19 17:48 Dose: 5 mg - Exam Quality Assessment: Reports: DVT Prophylaxis. Denies: Supplemental Oxygen General: Reports: Alert, Oriented, Cooperative, No Acute Distress HEENT: Reports: Pupils Equal, Pupils Reactive, EOMI, Mucous Membr. Moist/Crestone Lungs: Reports: Clear to Auscultation, Normal Respiratory Effort Cardiovascular: Reports: Regular Rate (controlled ), Irregular Rhythm GI/Abdominal Exam: Normal Bowel Sounds, Soft, Non-Tender, No Distention, No Abnormal Bruit (Male) Exam: Deferred Rectal (Males) Exam: Deferred Back Exam: Reports: Normal Inspection, Full Range of Motion Extremities: Normal Inspection, Normal Range of Motion, Non-Tender, Normal Capillary Refill, Pedal Edema (R>L 1+) Skin: Reports: Warm, Dry, Intact Neurological: Reports: No New Focal Deficit Psy/Mental Status: Reports: Alert, Normal Affect, Normal Mood
[2019-04-21] MEDS: Metoprolol Succinate 50 MG Tab.ER PO SCH (08:00)
[2019-04-21] MEDS: Diltiazem 120 MG Cap.CD PO SCH (08:01)
[2019-04-21] MEDS: guaiFENesin 600 MG Tab.ER PO SCH (08:01)
[2019-04-21] MEDS: Digoxin 125 MCG Tab PO SCH (08:01)
[2019-04-21] MEDS: Furosemide 20 MG Tab PO SCH (08:01)
[2019-04-21 14:54] VITALS: BP 118/61; PULSE 84
[2019-04-21] MEDS ORDERED: Warfarin 3 MG Tab PO SCH (18:00)
== END 2019-04-21 13:07 | disposition home health service (06) | DRG 195 ==
LOC: JD.ED 20:07 → JD.MS 22:09
PROVIDERS: ADMIT Family Medicine; ATTEND Family Medicine
DX: J12.3 Human metapneumovirus pneumonia (principal); H54.7 Unspecified visual loss; E87.6 Hypokalemia; I48.91 Unspecified atrial fibrillation; I10 Essential (primary) hypertension; F03.90 Unspecified dementia, unspecified severity, without behavioral disturbance, psychotic disturbance, mood disturbance, and anxiety; E78.00 Pure hypercholesterolemia, unspecified; Q24.9 Congenital malformation of heart, unspecified; I11.0 Hypertensive heart disease with heart failure; C61 Malignant neoplasm of prostate; I50.9 Heart failure, unspecified; G89.29 Other chronic pain; N28.9 Disorder of kidney and ureter, unspecified; M54.9 Dorsalgia, unspecified; Z96.659 Presence of unspecified artificial knee joint; M19.90 Unspecified osteoarthritis, unspecified site; Z79.01 Long term (current) use of anticoagulants; Z79.899 Other long term (current) drug therapy; Z86.73 Personal history of transient ischemic attack (TIA), and cerebral infarction without residual deficits; Z87.891 Personal history of nicotine dependence
CPT/HCPCS: 36415; 71045; 80053; 80306; 81001; 83605; 83735; 83880; 84443; 84484; 85025; 85610; 87040 ×2; 87804 ×2; 87899; 93005; J0696; J7050; 86140; 87486; 87581; 87632; 87798; 93306; 94640; 94667; 94668; 94761; 96374; 97110-GP; 97116-GP; 97162-GP; 97165-GO; 99283; 99285-25; A9270-GY; J0456; J7620-GY

== ENCOUNTER 2020-03-06 11:35 | Inpatient (IN) | payer MEDICARE, BC ==
--- NOTE | 2020-03-06 12:28 | EDM.PDOC ---
ED HPI GENERAL MEDICAL PROBLEM - General Chief Complaint: General Stated Complaint: COVID SX /FALL AT HOME/ WEAK Time Seen by Provider: 03/06/20 12:18 - History of Present Illness INITIAL COMMENTS - FREE TEXT/NARRATIVE: 89-year-old male brought into the emergency room by family complaining of "Covid-like symptoms weakness and fall" Onset of his symptoms is unknown the patient was brought in by family and family is no longer reachable to get a better history from and the patient is unable to give his own history. He does answer simple questions however. Patient has a remarkable past medical history of A. fib and is on warfarin. He is also had a stroke in the past. Patient has some degenerative joint disease. Patient [place]. It is unclear to me what specific Covid- like symptoms he has had. At 1324 we were able to get a hold of the patient's son. Apparently the patient's son and [id number] both were Covid positive and are now out of the the quarantine timeline. However this last week the patient developed cold- like symptoms. He had a Covid test done 2 days ago at the [facility] however they have not got the results yet. The patient's been a little more unsteady on his feet and did fall and has some back pain related to this. And this apparently is new. Try him on some Tylenol for the discomfort and x-ray his thoracic and lumbar spine Back Pain Score (Numeric/FACES): 5 - Related Data Allergies Allergy/AdvReac Type Severity Reaction Status Date / Time No Known Allergies Allergy Verified 03/06/20 12:03 Home Meds: Home Meds atorvaSTATin [Lipitor] 40 mg PO BEDTIME #30 tab 11/27/13 [Rx] Warfarin Sodium 4 mg PO SUTUWETHSA 10/07/17 [History] Furosemide [Lasix] 10 mg PO SUTUWEFRSA 08/14/18 [History] Digoxin 125 mcg PO DAILY 04/18/19 [History] dilTIAZem HCL [Diltiazem 24Hr ER (Xr)] 120 mg PO DAILY 04/18/19 [History] MV-Mn/Iron/FA/Vit K/K.Ginseng [[employer] Tab] 1 tab PO DAILY 04/19/19 [History] Metoprolol Succinate [Toprol XL 100mg] 100 mg PO BID 04/19/19 [History] Acetaminophen [Tylenol] 500 mg PO BID 03/06/20 [History] Furosemide [Lasix] 20 mg PO MOTH 03/06/20 [History] Gabapentin [Neurontin] 100 mg PO DAILY 03/06/20 [History] Warfarin [Coumadin] 2 mg PO MOFR 03/06/20 [History] Past Medical History HEENT History: Reports: Impaired Vision Cardiovascular History: Reports: Afib, High Cholesterol, Hypertension Respiratory History: Reports: None Gastrointestinal History: Reports: None Musculoskeletal History: Reports: Arthritis, Back Pain, Chronic Neurological History: Reports: CVA Oncologic (Cancer) History: Reports: Prostate Dermatologic History: Reports: None - Past Surgical History HEENT Surgical History: Reports: None Cardiovascular Surgical History: Reports: None Respiratory Surgical History: Reports: None GI Surgical History: Reports: Colonoscopy Neurological Surgical History: Reports: None Musculoskeletal Surgical History: Reports: Knee Replacement Dermatological Surgical History: Reports: None Social & Family History - Family History Family Medical History: No Pertinent Family History - Caffeine Use Caffeine Use: Reports: None ED ROS GENERAL - Review of Systems Review Of Systems: Unable To Obtain Reason Not Obtained: The patient could only answer very simple questions ED EXAM, GENERAL - Physical Exam Exam: See Below Exam Limited By: Altered Mental Status General Appearance: Alert, No Apparent Distress Eye Exam: Bilateral Eye: Normal Inspection Ears: Other (External canals have quite a bit of cerumen in them tympanic membranes not adequately visualized) Nose: Normal Inspection, Normal Mucosa, No Blood Throat/Mouth: Normal Inspection, Normal Lips, Normal Gums, Normal Oropharynx, Normal Voice Head: Atraumatic, Normocephalic Neck: Normal Inspection, Supple. No: Lymphadenopathy (L), Lymphadenopathy (R) Respiratory/Chest: No Respiratory Distress, Lungs Clear, Normal Breath Sounds Cardiovascular: Other (Mild bradycardia irregularly irregular no appreciable murmur) GI/Abdominal: Normal Bowel Sounds, Soft, Non-Tender Back Exam: Normal Inspection. No: CVA Tenderness (L), CVA Tenderness (R), Vertebral Tenderness Extremities: Other (Trace pitting edema lower extremity on the left 2-3+ on the right) Neurological: Alert, Confused, Slow to Respond. No: Oriented, Normal Cognition Skin Exam: Warm, Dry, Intact Lymphatic: No Adenopathy Course - Vital Signs Last Recorded V/S: Last Vital Signs Temp 36.3 C 03/06/20 11:59 Pulse 65 03/06/20 11:59 Resp 20 03/06/20 11:59 BP 141/81 H 03/06/20 11:59 Pulse Ox 92 L 03/06/20 11:59 - Orders/Labs/Meds Orders: Active Orders 24 hr Category Date Time Status EKG Documentation Completion [RC] STAT Care 03/06/20 12:41 Active Chest 1V Frontal [CR] Stat Exams 03/06/20 12:41 Taken Head wo Cont [CT] Stat Exams 03/06/20 12:47 Taken Lumbar Spine 2 or 3V [CR] Stat Exams 03/06/20 13:26 Taken Thoracic Spine 2V [CR] Stat Exams 03/06/20 13:26 Taken Labs: Laboratory Tests 03/06/20 03/06/20 03/06/20 Range/Units 12:10 12:10 12:10 WBC 5.17 (4.23-9.07) K/mm3 RBC 4.09 L (4.63-6.08) M/mm3 Hgb 12.0 L (13.7-17.5) gm/dl Hct 37.0 L (40.1-51.0) % MCV 90.5 (79.0-92.2) fl MCH 29.3 (25.7-32.2) pg MCHC 32.4 (32.2-35.5) g/dl RDW Std Deviation 46.1 H (35.1-43.9) fL Plt Count 166 (163-337) K/mm3 MPV 11.0 (9.4-12.3) fl Neut % (Auto) 86.3 H (34.0-67.9) % Lymph % (Auto) 5.4 L (21.8-53.1) % [place] % (Auto) 7.5 (5.3-12.2) % Eos % (Auto) 0.4 L (0.8-7.0) Baso % (Auto) 0.0 L (0.1-1.2) % Neut # (Auto) 4.46 (1.78-5.38) K/mm3 Lymph # (Auto) 0.28 L (1.32-3.57) K/mm3 [place] # (Auto) 0.39 (0.30-0.82) K/mm3 Eos # (Auto) 0.02 L (0.04-0.54) K/mm3 Baso # (Auto) 0.00 L (0.01-0.08) K/mm3 Manual Slide Review Abnormal smear PT (9.7-12.0) SECONDS INR Sodium 137 (136-145) mEq/L Potassium 3.1 L (3.5-5.1) mEq/L Chloride 98 (98-107) mEq/L Carbon Dioxide 28 (21-32) mEq/L Anion Gap 14.1 (5-15) BUN 17 (7-18) mg/dL Creatinine 1.1 (0.7-1.3) mg/dL Est Cr Clr Drug Dosing TNP Estimated GFR (MDRD) > 60 (>60) mL/min BUN/Creatinine Ratio 15.5 (14-18) Glucose 118 H (83-115) mg/dL Calcium 8.5 (8.5-10.1) mg/dL Total Bilirubin 2.1 H (0.2-1.0) mg/dL AST 36 (15-37) U/L ALT 38 (16-63) U/L Alkaline Phosphatase 75 (46-116) U/L Troponin I < 0.017 (0.00-0.056) ng/mL NT-Pro-B Natriuret Pep 4928 H (0-450) pg/mL Total Protein 7.3 (6.4-8.2) g/dl Albumin 3.1 L (3.4-5.0) g/dl Globulin 4.2 gm/dL Albumin/Globulin Ratio 0.7 L (1-2) Urine Color (Yellow) Urine Appearance (Clear) Urine pH (5.0-8.0) Ur Specific [place] (1.005-1.030) Urine Protein (Negative) Urine Glucose (UA) (Negative) Urine Ketones (Negative) Urine Occult Blood (Negative) Urine Nitrite (Negative) Urine Bilirubin (Negative) Urine Urobilinogen (0.2-1.0) Ur Leukocyte Esterase (Negative) Urine RBC (0-5) /hpf Urine WBC (0-5) /hpf Ur Squamous Epith Cells (0-5) /hpf Urine Bacteria (FEW) /hpf Urine Mucus (FEW) /hpf Digoxin (0.9-2.0) ng/mL SARS-CoV-2 RNA (MURALI) (NEGATIVE) 03/06/20 03/06/20 03/06/20 Range/Units 12:10 12:10 15:15 WBC (4.23-9.07) K/mm3 RBC (4.63-6.08) M/mm3 Hgb (13.7-17.5) gm/dl Hct (40.1-51.0) % MCV (79.0-92.2) fl MCH (25.7-32.2) pg MCHC (32.2-35.5) g/dl RDW Std Deviation (35.1-43.9) fL Plt Count (163-337) K/mm3 MPV (9.4-12.3) fl Neut % (Auto) (34.0-67.9) % Lymph % (Auto) (21.8-53.1) % [place] % (Auto) (5.3-12.2) % Eos % (Auto) (0.8-7.0) Baso % (Auto) (0.1-1.2) % Neut # (Auto) (1.78-5.38) K/mm3 Lymph # (Auto) (1.32-3.57) K/mm3 [place] # (Auto) (0.30-0.82) K/mm3 Eos # (Auto) (0.04-0.54) K/mm3 Baso # (Auto) (0.01-0.08) K/mm3 Manual Slide Review PT 23.0 H (9.7-12.0) SECONDS INR 2.18 Sodium (136-145) mEq/L Potassium (3.5-5.1) mEq/L Chloride (98-107) mEq/L Carbon Dioxide (21-32) mEq/L Anion Gap (5-15) BUN (7-18) mg/dL Creatinine (0.7-1.3) mg/dL Est Cr Clr Drug Dosing Estimated GFR (MDRD) (>60) mL/min BUN/Creatinine Ratio (14-18) Glucose (83-115) mg/dL Calcium (8.5-10.1) mg/dL Total Bilirubin (0.2-1.0) mg/dL AST (15-37) U/L ALT (16-63) U/L Alkaline Phosphatase (46-116) U/L Troponin I (0.00-0.056) ng/mL NT-Pro-B Natriuret Pep (0-450) pg/mL Total Protein (6.4-8.2) g/dl Albumin (3.4-5.0) g/dl Globulin gm/dL Albumin/Globulin Ratio (1-2) Urine Color Yellow (Yellow) Urine Appearance Clear (Clear) Urine pH 6.0 (5.0-8.0) Ur Specific [place] 1.025 (1.005-1.030) Urine Protein 2+ H (Negative) Urine Glucose (UA) Negative (Negative) Urine Ketones Negative (Negative) Urine Occult Blood Negative (Negative) Urine Nitrite Negative (Negative) Urine Bilirubin Negative (Negative) Urine Urobilinogen 2.0 H (0.2-1.0) Ur Leukocyte Esterase Negative (Negative) Urine RBC 0-5 (0-5) /hpf Urine WBC 0-5 (0-5) /hpf Ur Squamous Epith Cells 0-5 (0-5) /hpf Urine Bacteria Few (FEW) /hpf Urine Mucus Moderate H (FEW) /hpf Digoxin 1.2 (0.9-2.0) ng/mL SARS-CoV-2 RNA (MURALI) (NEGATIVE) 03/06/20 Range/Units 18:30 WBC (4.23-9.07) K/mm3 RBC (4.63-6.08) M/mm3 Hgb (13.7-17.5) gm/dl Hct (40.1-51.0) % MCV (79.0-92.2) fl MCH (25.7-32.2) pg MCHC (32.2-35.5) g/dl RDW Std Deviation (35.1-43.9) fL Plt Count (163-337) K/mm3 MPV (9.4-12.3) fl Neut % (Auto) (34.0-67.9) % Lymph % (Auto) (21.8-53.1) % [place] % (Auto) (5.3-12.2) % Eos % (Auto) (0.8-7.0) Baso % (Auto) (0.1-1.2) % Neut # (Auto) (1.78-5.38) K/mm3 Lymph # (Auto) (1.32-3.57) K/mm3 [place] # (Auto) (0.30-0.82) K/mm3 Eos # (Auto) (0.04-0.54) K/mm3 Baso # (Auto) (0.01-0.08) K/mm3 Manual Slide Review PT (9.7-12.0) SECONDS INR Sodium (136-145) mEq/L Potassium (3.5-5.1) mEq/L Chloride (98-107) mEq/L Carbon Dioxide (21-32) mEq/L Anion Gap (5-15) BUN (7-18) mg/dL Creatinine (0.7-1.3) mg/dL Est Cr Clr Drug Dosing Estimated GFR (MDRD) (>60) mL/min BUN/Creatinine Ratio (14-18) Glucose (83-115) mg/dL Calcium (8.5-10.1) mg/dL Total Bilirubin (0.2-1.0) mg/dL AST (15-37) U/L ALT (16-63) U/L Alkaline Phosphatase (46-116) U/L Troponin I (0.00-0.056) ng/mL NT-Pro-B Natriuret Pep (0-450) pg/mL Total Protein (6.4-8.2) g/dl Albumin (3.4-5.0) g/dl Globulin gm/dL Albumin/Globulin Ratio (1-2) Urine Color (Yellow) Urine Appearance (Clear) Urine pH (5.0-8.0) Ur Specific [place] (1.005-1.030) Urine Protein (Negative) Urine Glucose (UA) (Negative) Urine Ketones (Negative) Urine Occult Blood (Negative) Urine Nitrite (Negative) Urine Bilirubin (Negative) Urine Urobilinogen (0.2-1.0) Ur Leukocyte Esterase (Negative) Urine RBC (0-5) /hpf Urine WBC (0-5) /hpf Ur Squamous Epith Cells (0-5) /hpf Urine Bacteria (FEW) /hpf Urine Mucus (FEW) /hpf Digoxin (0.9-2.0) ng/mL SARS-CoV-2 RNA (MURALI) Positive H (NEGATIVE) Meds: Medications Discontinued Medications Generic Name Dose Route Start Last Admin Trade Name Freq PRN Reason Stop Dose Admin Acetaminophen 975 mg 03/06/20 13:24 03/06/20 13:32 Tylenol PO 03/06/20 13:25 975 mg NOW ONE Administration Acetaminophen Confirm 03/06/20 13:26 03/06/20 13:32 Tylenol Administered 03/06/20 13:27 Not Given Dose 975 mg .ROUTE .STK-MED ONE Potassium Chloride 40 meq 03/06/20 16:47 Potassium Chloride Solution PO 03/06/20 16:48 ONETIME ONE Potassium Chloride Confirm 03/06/20 17:05 03/06/20 17:09 Klor-Con M20 Administered 03/06/20 17:06 Not Given Dose 40 meq .ROUTE .STK-MED ONE Potassium Chloride 40 meq 03/06/20 17:08 03/06/20 17:10 Klor-Con M20 PO 03/06/20 17:09 40 meq ONETIME ONE Administration Potassium Chloride 20 meq 03/06/20 18:24 03/06/20 18:42 Klor-Con M20 PO 03/06/20 18:25 20 meq ONETIME ONE Administration - Re-Assessments/Exams Free Text/Narrative Re-Assessment/Exam: 03/06/20 13:33 Nursing was able to discuss the patient's case with the patient's son who gives a history of Covid exposure recent unsteadiness on his feet and a fall it is unclear if he hit his head. He does have some back pain resulting from this fall we will check x-rays albeit his back exam was unremarkable. 03/06/20 16:46 The examination of his thoracic spine shows old degenerative changes with some curvature same as seen in the lumbar region he is got a spondylolisthesis L4 on 5 but no significant acute abnormalities identified. Laboratory evaluation shows a relatively low potassium at 3.1 his proBNP is elevated 03/06/20 20:53 Patient's Covid came back positive because of the emergency room being busy and to take him a while to get back to him. Did discuss situation with the patient's son who strongly feels the patient cannot be cared for at home at this time until he is getting better. The Covid 19 has gone through the household and that is with the patient most likely picked it up. His dig level is normal but he was found to be hypokalemic with a potassium of 3.1 he was given a total of 60 mEq of oral potassium here in the department. His dig level is 1.2 INR is therapeutic. He has faint groundglass appearance infiltrates in both lungs. At this point we have no beds here in the hospital and try to see if I could find a bed [place]. 03/06/20 21:25 So far we have not found a bed bed [place] but we did have a bed open up here in [place] and the case was discussed with Dr. Medina, our hospitalist is kind enough to admit the patient. Departure - Departure Time of Disposition: 21:26 Disposition: Admitted As Inpatient 68 Clinical Impression: COVID-19, Congestive heart failure, Hypokalemia, Weakness - Discharge Information Referrals: Grisel Luz PA [Primary Care Provider] - Forms: ED Department Discharge Sepsis Event Note (ED) - Evaluation Sepsis Screening Result: No Definite Risk - Focused Exam Vital Signs: Vital Signs Temp Pulse Resp BP Pulse Ox 03/06/20 11:59 36.3 C 65 20 141/81 H 92 L - My Orders Last 24 Hours: My Active Orders 03/06/20 12:41 EKG Documentation Completion [RC] STAT Chest 1V Frontal [CR] Stat 03/06/20 12:47 Head wo Cont [CT] Stat 03/06/20 13:26 Lumbar Spine 2 or 3V [CR] Stat Thoracic Spine 2V [CR] Stat - Assessment/Plan Last 24 Hours: My Active Orders 03/06/20 12:41 EKG Documentation Completion [RC] STAT Chest 1V Frontal [CR] Stat 03/06/20 12:47 Head wo Cont [CT] Stat 03/06/20 13:26 Lumbar Spine 2 or 3V [CR] Stat Thoracic Spine 2V [CR] Stat
[2020-03-06] MEDS ORDERED: Acetaminophen 325 MG Tab PO ONE (13:24)
[2020-03-06] MEDS ORDERED: Acetaminophen 325 MG Tab ONE (13:26)
[2020-03-06] MEDS ORDERED: Potassium Chloride 10% 20 MEQ/15 ML Soln 15 ML UD Cup PO ONE (16:47)
[2020-03-06] MEDS ORDERED: Potassium Chloride 20 MEQ Tab.ER ONE (17:05)
[2020-03-06] MEDS ORDERED: Potassium Chloride 20 MEQ Tab.ER PO ONE ×2 (17:08→18:24)
[2020-03-07] MEDS ORDERED: REMDESIVIR 200 MG in Sodium Chloride 0.9% 250 ML IV ONE (04:00)
[2020-03-07] MEDS ORDERED: Enoxaparin 30 MG/0.3 ML Syringe SUBCUT SCH (09:30)
[2020-03-07] MEDS ORDERED: Furosemide 20 MG/2 ML VIAL IVPUSH ONE (10:00)
[2020-03-07] MEDS ORDERED: Potassium Chloride 20 MEQ Tab.ER PO ONE (10:00)
[2020-03-07] MEDS: Azithromycin 500 MG in Sodium Chloride 0.9% 250 ML IV SCH (11:52)
[2020-03-07] MEDS: Metoprolol Succinate 50 MG Tab.ER PO SCH ×3 (11:55→22:29)
[2020-03-07] MEDS: Gabapentin 100 MG Cap PO SCH (11:59)
[2020-03-07] MEDS ORDERED: Magnesium Sulfate/Water 2 GM/50 ML BAG IV ONE (12:00)
[2020-03-07] MEDS: Dexamethasone 4 MG Tab PO SCH (12:00)
[2020-03-07] MEDS: Digoxin 125 MCG Tab PO SCH (12:01)
[2020-03-07] MEDS: Diltiazem 120 MG Cap.CD PO SCH (12:02)
--- NOTE | 2020-03-07 13:13 | CT ---
PROCEDURE INFORMATION: Exam: CT Head Without Contrast Exam date and time: 03/06/2020 12:48 PM Age: 89 years old Clinical indication: Altered mental status/memory loss; Other: Possible injury on coumadin TECHNIQUE: Imaging protocol: Computed tomography of the head without contrast. Radiation optimization: All CT scans at this facility use at least one of these dose optimization techniques: automated exposure control; mA and/or kV adjustment per patient size (includes targeted exams where dose is matched to clinical indication); or iterative reconstruction. COMPARISON: CT Head wo Cont 08/14/2018 7:39 PM FINDINGS: Brain: Patchy deep white matter low-attenuation zones are seen. There is no evidence of acute hemorrhage within the brain parenchyma or the subarachnoid space. Cerebral ventricles: The ventricular system demonstrates mild diffuse compensatory enlargement. There is no significant ventricular effacement or midline shift. Bones/joints: The skull is normal. Paranasal sinuses: There is mild mucosal thickening in the ethmoid and left frontal sinuses. Mastoid air cells: The mastoid sinuses are normal. Orbital cavity: There have been bilateral lens replacements. Soft tissues: There is an old rounded subcutaneous nodule in the right posterior parietal scalp. No acute scalp abnormality is noted. IMPRESSION: Patchy deep white matter low-attenuation compatible with this age group suggesting chronic subcortical ischemia. No acute abnormality. Thank you for allowing us to participate in the care of your patient. Dictated and Authenticated by: Tulio Garcia MD 03/06/2020 2:27 PM Central Time ([place]) [facility]
--- NOTE | 2020-03-07 13:16 | CR ---
PROCEDURE INFORMATION: Exam: XR Chest, 1 View Exam date and time: 03/06/2020 12:57 PM Age: 89 years old Clinical indication: Other: Weakness TECHNIQUE: Imaging protocol: XR of the chest Views: 1 view. COMPARISON: CR Chest 1V Frontal 04/18/2019 8:22 PM FINDINGS: Lungs: There are faint nonspecific ground-glass opacities in both lungs, more on the right than the left. There is nonspecific consolidation in the right lung base, consistent with atelectasis or pneumonia. Pleural space: There are no pleural effusions present. There is no evidence of pneumothorax. Heart/Mediastinum: The heart is not enlarged. There is an ill-defined rounded density posterior to the heart in the mediastinum suggesting possible hiatal hernia. Bones/joints: Unremarkable IMPRESSION: 1. Nonspecific faint ground-glass opacities in the lungs. These are more pronounced than the prior study. 2. Right basilar atelectasis/pneumonia. Thank you for allowing us to participate in the care of your patient. . Dictated and Authenticated by: Tulio Garcia MD 03/06/2020 2:56 PM Central Time ([place]) [facility]
--- NOTE | 2020-03-07 13:20 | CR ---
PROCEDURE INFORMATION: Exam: XR Lumbosacral Spine, 2 or 3 Views Exam date and time: 03/06/2020 1:38 PM Age: 89 years old Clinical indication: Other: Fall and pain. TECHNIQUE: Imaging protocol: XR of the lumbosacral spine, 2 or 3 views. COMPARISON: CT Lumbar Spine wo Cont 08/14/2018 7:39 PM FINDINGS: Bones/joints: There is a mild scoliosis. There are large marginal osteophytes projecting from multiple endplates. There appears to be a transitional lumbosacral vertebra. There is mild anterior compression of L1. The age of this is indeterminate. Soft tissues: The extraspinous soft tissues are normal. IMPRESSION: Compression fracture of L1 of indeterminate age. Correlation with point tenderness is suggested. Thank you for allowing us to participate in the care of your patient. Dictated and Authenticated by: Tulio Garcia MD 03/06/2020 3:03 PM Central Time ([place]) [facility]
--- NOTE | 2020-03-07 13:21 | CR ---
PROCEDURE INFORMATION: Exam: XR Thoracic Spine, 2 Views Exam date and time: 03/06/2020 1:38 PM Age: 89 years old Clinical indication: Other: Fall and pain TECHNIQUE: Imaging protocol: XR of the thoracic spine, 2 views. COMPARISON: No relevant prior studies available. FINDINGS: Bones/joints: There is moderate anterior compression of T11. There is a mild scoliosis. The vertebral body heights are maintained. There is mild anterior compression of L1. Soft tissues: Unremarkable Lungs: There are faint nonspecific ground-glass opacities in both lungs. IMPRESSION: 1. Nonspecific faint ground-glass opacities in the lungs. 2. Anterior compression of T11 and L1. These may not be acute. Thank you for allowing us to participate in the care of your patient. Dictated and Authenticated by: Tulio Garcia MD 03/06/2020 3:00 PM Central Time ([place]) [facility]
--- NOTE | 2020-03-07 13:29 | PCM.HP.2 ---
H&P History of Present Illness - General Date of Service: 03/07/20 Admit Problem/Dx: Admission Diagnosis/Problem Admission Diagnosis/Problem Congestive heart failure Source of Information: Provider History Limitations: Reports: Altered Mental Status - History of Present Illness Initial Comments - Free Text/Narative: 89-year-old male brought into the emergency room by family complaining of "Covid-like symptoms weakness and fall" Onset of his symptoms is unknown the patient was brought in by family and family is no longer reachable to get a better history from and the patient is unable to give his own history. He does answer simple questions however. Patient has a remarkable past medical history of A. fib and is on warfarin. He is also had a stroke in the past. Patient has some degenerative joint disease. Patient [place]. It is unclear to me what specific Covid- like symptoms he has had. At 1324 we were able to get a hold of the patient's son. Apparently the patient's son and [id number] both were Covid positive and are now out of the the quarantine timeline. However this last week the patient developed cold- like symptoms. He had a Covid test done 2 days ago at the [place] [facility] however they have not got the results yet. The patient's been a little more unsteady on his feet and did fall and has some back pain related to this. And this apparently is new. Try him on some Tylenol for the discomfort and x-ray his thoracic and lumbar spine Back Back Pain Score (Numeric/FACES): 5 - Related Data Allergies/Adverse Reactions: Allergies Allergy/AdvReac Type Severity Reaction Status Date / Time No Known Allergies Allergy Verified 03/07/20 12:58 Home Medications: Home Meds atorvaSTATin [Lipitor] 40 mg PO BEDTIME #30 tab 11/27/13 [Rx] Warfarin Sodium 4 mg PO SUTUWETHSA 10/07/17 [History] Furosemide [Lasix] 10 mg PO SUTUWEFRSA 08/14/18 [History] Digoxin 125 mcg PO DAILY 04/18/19 [History] dilTIAZem HCL [Diltiazem 24Hr ER (Xr)] 120 mg PO DAILY 04/18/19 [History] MV-Mn/Iron/FA/Vit K/K.Ginseng [[employer] Tab] 1 tab PO DAILY 04/19/19 [History] Metoprolol Succinate [Toprol XL 100mg] 100 mg PO BID 04/19/19 [History] Acetaminophen [Tylenol] 500 mg PO BID 03/06/20 [History] Furosemide [Lasix] 20 mg PO MOTH 03/06/20 [History] Gabapentin [Neurontin] 100 mg PO DAILY 03/06/20 [History] Warfarin [Coumadin] 2 mg PO MOFR 03/06/20 [History] Past Medical History HEENT History: Reports: Hard of Hearing, Impaired Vision Cardiovascular History: Reports: Afib, High Cholesterol, Hypertension Respiratory History: Reports: None Gastrointestinal History: Reports: None Genitourinary History: Reports: Urinary Incontinence Musculoskeletal History: Reports: Arthritis, Back Pain, Chronic Neurological History: Reports: CVA Other Psychiatric History: becoming more confused and forgetful over past year Oncologic (Cancer) History: Reports: Prostate Dermatologic History: Reports: None - Infectious Disease History Infectious Disease History: Reports: Novel Coronavirus - Past Surgical History HEENT Surgical History: Reports: None Cardiovascular Surgical History: Reports: None Respiratory Surgical History: Reports: None GI Surgical History: Reports: Colonoscopy Neurological Surgical History: Reports: None Musculoskeletal Surgical History: Reports: Knee Replacement Oncologic Surgical History: Reports: None Dermatological Surgical History: Reports: None Social & Family History - Family History Family Medical History: No Pertinent Family History - Tobacco Use Tobacco Use Status *Q: Never Tobacco User Second Hand Smoke Exposure: No - Caffeine Use Caffeine Use: Reports: None - Recreational Drug Use Recreational Drug Use: No H&P Review of Systems - Review of Systems: Review Of Systems: See Below General: Reports: Fever, Malaise, Weakness, Decreased Appetite HEENT: Reports: No Symptoms Pulmonary: Reports: No Symptoms Cardiovascular: Reports: No Symptoms Gastrointestinal: Reports: Stool Incontinence Genitourinary: Reports: Incontinence Musculoskeletal: Reports: Other (Generalized weakness) Skin: Reports: Other (Redness noted to groin) Psychiatric: Reports: Confusion Neurological: Reports: Confusion, Other (Patient is nonverbal) Exam - Exam Exam: See Below - Vital Signs Vital Signs: Last Vital Signs Temp 98.4 F 03/07/20 11:57 Pulse 95 03/07/20 12:02 Resp 20 03/07/20 11:57 BP 153/87 H 03/07/20 12:02 Pulse Ox 94 L 03/07/20 11:57 Weight: 173 lb 9.6 oz - Exam Quality Assessment: Supplemental Oxygen (3 L per nasal cannula), DVT Prophylaxis (Patient takes Coumadin) General: Cooperative, Moderate Distress, Lethargic HEENT: Conjunctiva Clear, Mucosa Moist & [place], Pupils Equal, Pupils Reactive Neck: Supple, Trachea Midline. No: Lymphadenopathy Lungs: Decreased Breath Sounds, Crackles Cardiovascular: Regular Rate, Irregular Rhythm GI/Abdominal Exam: Normal Bowel Sounds, Soft, Non-Tender, No Distention (Male) Exam: Deferred Rectal (Males) Exam: Deferred Back Exam: Normal Inspection, Full Range of Motion Extremities: Normal Inspection, Normal Range of Motion, Non-Tender, Normal Cap illary Refill, Pedal Edema (1+ pitting) Peripheral Pulses: 1+: Dorsalis Pedis (L), Dorsalis Pedis (R), 2+: Radial (L), Radial (R) Skin: Warm, Dry, Rash (Groin) Neuro Extensive - Mental Status: Other (Patient is nonverbal. He opens his eyes to voice.) Psychiatric: Normal Mood - Patient Data Lab Results Last 24 hrs: Laboratory Results - last 24 hr 03/06/20 03/06/20 03/06/20 Range/Units 12:10 12:10 12:10 WBC (4.23-9.07) K/mm3 RBC (4.63-6.08) M/mm3 Hgb (13.7-17.5) gm/dl Hct (40.1-51.0) % MCV (79.0-92.2) fl MCH (25.7-32.2) pg MCHC (32.2-35.5) g/dl RDW Std Deviation (35.1-43.9) fL Plt Count (163-337) K/mm3 MPV (9.4-12.3) fl Neut % (Auto) (34.0-67.9) % Lymph % (Auto) (21.8-53.1) % [place] % (Auto) (5.3-12.2) % Eos % (Auto) (0.8-7.0) Baso % (Auto) (0.1-1.2) % Neut # (Auto) (1.78-5.38) K/mm3 Lymph # (Auto) (1.32-3.57) K/mm3 [place] # (Auto) (0.30-0.82) K/mm3 Eos # (Auto) (0.04-0.54) K/mm3 Baso # (Auto) (0.01-0.08) K/mm3 Manual Slide Review PT 23.0 H (9.7-12.0) SECONDS INR 2.18 D-Dimer, Quantitative (0.19-0.50) mg/L Sodium 137 (136-145) mEq/L Potassium 3.1 L (3.5-5.1) mEq/L Chloride 98 (98-107) mEq/L Carbon Dioxide 28 (21-32) mEq/L Anion Gap 14.1 (5-15) BUN 17 (7-18) mg/dL Creatinine 1.1 (0.7-1.3) mg/dL Est Cr Clr Drug Dosing TNP Estimated GFR (MDRD) > 60 (>60) mL/min BUN/Creatinine Ratio 15.5 (14-18) Glucose 118 H (83-115) mg/dL Calcium 8.5 (8.5-10.1) mg/dL Phosphorus (2.6-4.7) mg/dL Magnesium (1.8-2.4) mg/dl Total Bilirubin 2.1 H (0.2-1.0) mg/dL AST 36 (15-37) U/L ALT 38 (16-63) U/L Alkaline Phosphatase 75 (46-116) U/L Troponin I < 0.017 (0.00-0.056) ng/mL C-Reactive Protein (<1.0) mg/dL NT-Pro-B Natriuret Pep 4928 H (0-450) pg/mL Total Protein 7.3 (6.4-8.2) g/dl Albumin 3.1 L (3.4-5.0) g/dl Globulin 4.2 gm/dL Albumin/Globulin Ratio 0.7 L (1-2) Urine Color (Yellow) Urine Appearance (Clear) Urine pH (5.0-8.0) Ur Specific [place] (1.005-1.030) Urine Protein (Negative) Urine Glucose (UA) (Negative) Urine Ketones (Negative) Urine Occult Blood (Negative) Urine Nitrite (Negative) Urine Bilirubin (Negative) Urine Urobilinogen (0.2-1.0) Ur Leukocyte Esterase (Negative) Urine RBC (0-5) /hpf Urine WBC (0-5) /hpf Ur Squamous Epith Cells (0-5) /hpf Urine Bacteria (FEW) /hpf Urine Mucus (FEW) /hpf Digoxin (0.9-2.0) ng/mL SARS-CoV-2 RNA (MURALI) (NEGATIVE) 03/06/20 03/06/20 03/06/20 Range/Units 12:10 15:15 18:30 WBC (4.23-9.07) K/mm3 RBC (4.63-6.08) M/mm3 Hgb (13.7-17.5) gm/dl Hct (40.1-51.0) % MCV (79.0-92.2) fl MCH (25.7-32.2) pg MCHC (32.2-35.5) g/dl RDW Std Deviation (35.1-43.9) fL Plt Count (163-337) K/mm3 MPV (9.4-12.3) fl Neut % (Auto) (34.0-67.9) % Lymph % (Auto) (21.8-53.1) % [place] % (Auto) (5.3-12.2) % Eos % (Auto) (0.8-7.0) Baso % (Auto) (0.1-1.2) % Neut # (Auto) (1.78-5.38) K/mm3 Lymph # (Auto) (1.32-3.57) K/mm3 [place] # (Auto) (0.30-0.82) K/mm3 Eos # (Auto) (0.04-0.54) K/mm3 Baso # (Auto) (0.01-0.08) K/mm3 Manual Slide Review PT (9.7-12.0) SECONDS INR D-Dimer, Quantitative (0.19-0.50) mg/L Sodium (136-145) mEq/L Potassium (3.5-5.1) mEq/L Chloride (98-107) mEq/L Carbon Dioxide (21-32) mEq/L Anion Gap (5-15) BUN (7-18) mg/dL Creatinine (0.7-1.3) mg/dL Est Cr Clr Drug Dosing Estimated GFR (MDRD) (>60) mL/min BUN/Creatinine Ratio (14-18) Glucose (83-115) mg/dL Calcium (8.5-10.1) mg/dL Phosphorus (2.6-4.7) mg/dL Magnesium (1.8-2.4) mg/dl Total Bilirubin (0.2-1.0) mg/dL AST (15-37) U/L ALT (16-63) U/L Alkaline Phosphatase (46-116) U/L Troponin I (0.00-0.056) ng/mL C-Reactive Protein (<1.0) mg/dL NT-Pro-B Natriuret Pep (0-450) pg/mL Total Protein (6.4-8.2) g/dl Albumin (3.4-5.0) g/dl Globulin gm/dL Albumin/Globulin Ratio (1-2) Urine Color Yellow (Yellow) Urine Appearance Clear (Clear) Urine pH 6.0 (5.0-8.0) Ur Specific [place] 1.025 (1.005-1.030) Urine Protein 2+ H (Negative) Urine Glucose (UA) Negative (Negative) Urine Ketones Negative (Negative) Urine Occult Blood Negative (Negative) Urine Nitrite Negative (Negative) Urine Bilirubin Negative (Negative) Urine Urobilinogen 2.0 H (0.2-1.0) Ur Leukocyte Esterase Negative (Negative) Urine RBC 0-5 (0-5) /hpf Urine WBC 0-5 (0-5) /hpf Ur Squamous Epith Cells 0-5 (0-5) /hpf Urine Bacteria Few (FEW) /hpf Urine Mucus Moderate H (FEW) /hpf Digoxin 1.2 (0.9-2.0) ng/mL SARS-CoV-2 RNA (MURALI) Positive H (NEGATIVE) 03/07/20 03/07/20 03/07/20 Range/Units 08:10 08:10 08:10 WBC 5.38 (4.23-9.07) K/mm3 RBC 4.03 L (4.63-6.08) M/mm3 Hgb 11.9 L (13.7-17.5) gm/dl Hct 36.0 L (40.1-51.0) % MCV 89.3 (79.0-92.2) fl MCH 29.5 (25.7-32.2) pg MCHC 33.1 (32.2-35.5) g/dl RDW Std Deviation 46.1 H (35.1-43.9) fL Plt Count 171 (163-337) K/mm3 MPV 10.6 (9.4-12.3) fl Neut % (Auto) 87.2 H (34.0-67.9) % Lymph % (Auto) 7.6 L (21.8-53.1) % [place] % (Auto) 4.6 L (5.3-12.2) % Eos % (Auto) 0.2 L (0.8-7.0) Baso % (Auto) 0.0 L (0.1-1.2) % Neut # (Auto) 4.69 (1.78-5.38) K/mm3 Lymph # (Auto) 0.41 L (1.32-3.57) K/mm3 [place] # (Auto) 0.25 L (0.30-0.82) K/mm3 Eos # (Auto) 0.01 L (0.04-0.54) K/mm3 Baso # (Auto) 0.00 L (0.01-0.08) K/mm3 Manual Slide Review Normal smear PT (9.7-12.0) SECONDS INR D-Dimer, Quantitative 1.83 H (0.19-0.50) mg/L Sodium 136 (136-145) mEq/L Potassium 3.5 (3.5-5.1) mEq/L Chloride 100 (98-107) mEq/L Carbon Dioxide 25 (21-32) mEq/L Anion Gap 14.5 (5-15) BUN 13 (7-18) mg/dL Creatinine 0.9 (0.7-1.3) mg/dL Est Cr Clr Drug Dosing 61.59 Estimated GFR (MDRD) > 60 (>60) mL/min BUN/Creatinine Ratio 14.4 (14-18) Glucose 114 (83-115) mg/dL Calcium 8.2 L (8.5-10.1) mg/dL Phosphorus 2.6 (2.6-4.7) mg/dL Magnesium 1.8 (1.8-2.4) mg/dl Total Bilirubin 1.8 H (0.2-1.0) mg/dL AST 39 H (15-37) U/L ALT 35 (16-63) U/L Alkaline Phosphatase 75 (46-116) U/L Troponin I (0.00-0.056) ng/mL C-Reactive Protein 18.0 H* (<1.0) mg/dL NT-Pro-B Natriuret Pep (0-450) pg/mL Total Protein 7.0 (6.4-8.2) g/dl Albumin 2.9 L (3.4-5.0) g/dl Globulin 4.1 gm/dL Albumin/Globulin Ratio 0.7 L (1-2) Urine Color (Yellow) Urine Appearance (Clear) Urine pH (5.0-8.0) Ur Specific [place] (1.005-1.030) Urine Protein (Negative) Urine Glucose (UA) (Negative) Urine Ketones (Negative) Urine Occult Blood (Negative) Urine Nitrite (Negative) Urine Bilirubin (Negative) Urine Urobilinogen (0.2-1.0) Ur Leukocyte Esterase (Negative) Urine RBC (0-5) /hpf Urine WBC (0-5) /hpf Ur Squamous Epith Cells (0-5) /hpf Urine Bacteria (FEW) /hpf Urine Mucus (FEW) /hpf Digoxin (0.9-2.0) ng/mL SARS-CoV-2 RNA (MURALI) (NEGATIVE) 03/07/20 Range/Units 08:10 WBC (4.23-9.07) K/mm3 RBC (4.63-6.08) M/mm3 Hgb (13.7-17.5) gm/dl Hct (40.1-51.0) % MCV (79.0-92.2) fl MCH (25.7-32.2) pg MCHC (32.2-35.5) g/dl RDW Std Deviation (35.1-43.9) fL Plt Count (163-337) K/mm3 MPV (9.4-12.3) fl Neut % (Auto) (34.0-67.9) % Lymph % (Auto) (21.8-53.1) % [place] % (Auto) (5.3-12.2) % Eos % (Auto) (0.8-7.0) Baso % (Auto) (0.1-1.2) % Neut # (Auto) (1.78-5.38) K/mm3 Lymph # (Auto) (1.32-3.57) K/mm3 [place] # (Auto) (0.30-0.82) K/mm3 Eos # (Auto) (0.04-0.54) K/mm3 Baso # (Auto) (0.01-0.08) K/mm3 Manual Slide Review PT 29.3 H (9.7-12.0) SECONDS INR 2.79 D-Dimer, Quantitative (0.19-0.50) mg/L Sodium (136-145) mEq/L Potassium (3.5-5.1) mEq/L Chloride (98-107) mEq/L Carbon Dioxide (21-32) mEq/L Anion Gap (5-15) BUN (7-18) mg/dL Creatinine (0.7-1.3) mg/dL Est Cr Clr Drug Dosing Estimated GFR (MDRD) (>60) mL/min BUN/Creatinine Ratio (14-18) Glucose (83-115) mg/dL Calcium (8.5-10.1) mg/dL Phosphorus (2.6-4.7) mg/dL Magnesium (1.8-2.4) mg/dl Total Bilirubin (0.2-1.0) mg/dL AST (15-37) U/L ALT (16-63) U/L Alkaline Phosphatase (46-116) U/L Troponin I (0.00-0.056) ng/mL C-Reactive Protein (<1.0) mg/dL NT-Pro-B Natriuret Pep (0-450) pg/mL Total Protein (6.4-8.2) g/dl Albumin (3.4-5.0) g/dl Globulin gm/dL Albumin/Globulin Ratio (1-2) Urine Color (Yellow) Urine Appearance (Clear) Urine pH (5.0-8.0) Ur Specific [place] (1.005-1.030) Urine Protein (Negative) Urine Glucose (UA) (Negative) Urine Ketones (Negative) Urine Occult Blood (Negative) Urine Nitrite (Negative) Urine Bilirubin (Negative) Urine Urobilinogen (0.2-1.0) Ur Leukocyte Esterase (Negative) Urine RBC (0-5) /hpf Urine WBC (0-5) /hpf Ur Squamous Epith Cells (0-5) /hpf Urine Bacteria (FEW) /hpf Urine Mucus (FEW) /hpf Digoxin (0.9-2.0) ng/mL SARS-CoV-2 RNA (MURALI) (NEGATIVE) Result Diagrams: 03/07/20 08:10 03/07/20 08:10 Sepsis Event Note - Evaluation Sepsis Screening Result: No Definite Risk - Focused Exam Vital Signs: Vital Signs Temp Pulse Resp BP Pulse Ox Pulse Ox 03/07/20 12:02 95 153/87 H 03/07/20 12:01 95 03/07/20 11:57 98.4 F 95 20 153/87 H 94 L 03/07/20 11:55 95 153/87 H 03/07/20 08:22 97.9 F 61 14 155/104 H 94 L 03/07/20 06:04 93 L 03/07/20 03:05 90 L 03/07/20 03:00 87 L 03/07/20 02:36 98.6 F 70 24 H 114/63 90 L - Problem List (1) COVID-19 SNOMED Code(s): 598676602 ICD Code: U07.1 - COVID-19 Status: Acute Priority: High Current Visit: Yes (2) Congestive heart failure SNOMED Code(s): 77405655 ICD Code: I50.9 - HEART FAILURE, UNSPECIFIED Status: Chronic Priority: High Current Visit: Yes Qualifiers: Heart failure type: unspecified Heart failure chronicity: unspecified Qualified Code(s): I50.9 - Heart failure, unspecified (3) Hypokalemia SNOMED Code(s): 16246899 ICD Code: E87.6 - HYPOKALEMIA Status: Acute Priority: High Current Visit: Yes (4) Weakness SNOMED Code(s): 30311002 ICD Code: R53.1 - WEAKNESS Status: Acute Priority: High Current Visit: Yes (5) Atrial fibrillation SNOMED Code(s): 97239190 ICD Code: I48.91 - UNSPECIFIED ATRIAL FIBRILLATION Status: Chronic Priority: Medium Current Visit: Yes Qualifiers: Atrial fibrillation type: unspecified Qualified Code(s): I48.91 - Unspecified atrial fibrillation (6) Chronic anticoagulation SNOMED Code(s): 878922011 ICD Code: Z79.01 - PENITENTIARY (CURRENT) USE OF ANTICOAGULANTS Status: Chronic Priority: Medium Current Visit: No (7) Pneumonia due to 2019 novel coronavirus SNOMED Code(s): 604003702365559663 ICD Code: U07.1 - COVID-19; J12.89 - OTHER VIRAL PNEUMONIA Status: Acute Priority: High Current Visit: Yes Problem List Initiated/Reviewed/Updated: Yes Orders Last 24hrs: Active Orders 24 hr Category Date Time Status Patient Status [ADT] Routine ADT 03/06/20 23:42 Active Bedrest [RC] ASDIRECTED Care 03/07/20 03:00 Active Oxygen Therapy Adult [Oxygen Therapy] [RC] ASDIRECTED Care 03/07/20 03:01 Active OT Evaluation and Treatment [CONS] Routine Cons 03/07/20 11:05 Active PT Evaluation and Treatment [CONS] Routine Cons 03/07/20 11:05 Active Heart Healthy Diet [DIET] Diet 03/07/20 Breakfast Active Chest 1V Frontal [CR] Routine Exams 03/08/20 07:00 Ordered INR,PT,PROTHROMBIN TIME [COAG] AM Lab 03/08/20 05:11 Ordered INR,PT,PROTHROMBIN TIME [COAG] AM Lab 03/09/20 05:11 Ordered INR,PT,PROTHROMBIN TIME [COAG] AM Lab 03/10/20 05:11 Ordered INR,PT,PROTHROMBIN TIME [COAG] AM Lab 03/11/20 05:11 Ordered INR,PT,PROTHROMBIN TIME [COAG] AM Lab 03/12/20 05:11 Ordered INR,PT,PROTHROMBIN TIME [COAG] AM Lab 03/13/20 05:11 Ordered INR,PT,PROTHROMBIN TIME [COAG] AM Lab 03/14/20 05:11 Ordered PROCALCITONIN [REF] Stat Lab 03/07/20 08:10 Received Azithromycin [Zithromax] 500 mg Med 03/07/20 10:30 Active Sodium Chloride 0.9% [Normal Saline (AdvBag)] 250 ml IV Q24H Digoxin [Lanoxin] Med 03/07/20 10:00 Active 125 mcg PO DAILY Diltiazem [Cardizem CD] Med 03/07/20 10:00 Active 120 mg PO DAILY Gabapentin [Neurontin] Med 03/07/20 10:00 Active 100 mg PO DAILY Magnesium Sulfate/Water [Magnesium Sulfate in Water Med 03/07/20 12:00 Active Premix] 2 gm in 50 ml IV ONETIME Metoprolol Succinate [Toprol XL] Med 03/07/20 10:00 Active 100 mg PO BID Pharmacy to Dose - Warfarin Med 03/07/20 09:30 Active 1 dose .XX ASDIRECTED PRN Remdesivir (Eua) [Remdesivir (EUA)] 100 mg Med 03/08/20 05:00 Active Sodium Chloride 0.9% [Normal Saline] 100 ml IV Q24H Rosuvastatin [Crestor] Med 03/07/20 21:00 Active 10 mg PO BEDTIME Warfarin [Coumadin] Med 03/07/20 18:00 Active 2 mg PO QPM cefTRIAXone [Rocephin] 2 gm Med 03/07/20 10:00 Active Sodium Chloride 0.9% [Normal Saline] 100 ml IV Q24H dexAMETHasone Med 03/07/20 12:00 Active 6 mg PO DAILY Code Status [Resuscitation Status] Routine Resus Stat 03/07/20 02:59 Ordered Medication Orders Dexamethasone (Dexamethasone) 6 mg PO DAILY [facility] Stop: 03/16/20 09:01 Last Admin: 03/07/20 12:00 Dose: 6 mg Documented by: CHAZ Digoxin (Lanoxin) 125 mcg PO DAILY [facility] Last Admin: 03/07/20 12:01 Dose: 125 mcg Documented by: CHAZ Diltiazem HCl (Cardizem Cd) 120 mg PO DAILY [facility] Last Admin: 03/07/20 12:02 Dose: 120 mg Documented by: CHAZ Gabapentin (Neurontin) 100 mg PO DAILY [facility] Last Admin: 03/07/20 11:59 Dose: 100 mg Documented by: CHAZ Remdesivir 100 mg/ Sodium (Chloride) 100 mls @ 100 mls/hr IV Q24H [facility] Stop: 03/11/20 05:59 Ceftriaxone Sodium 2 gm/ (Sodium Chloride) 100 mls @ 200 mls/hr IV Q24H [facility] Stop: 03/11/20 10:29 Azithromycin 500 mg/ Sodium (Chloride) 250 mls @ 250 mls/hr IV Q24H [facility] Stop: 03/09/20 11:29 Last Admin: 03/07/20 11:52 Dose: 250 mls/hr Documented by: CHAZ Magnesium Sulfate (Magnesium Sulfate In Water Premix) 2 gm in 50 mls @ 25 mls/hr IV ONETIME ONE Stop: 03/07/20 13:59 Last Admin: 03/07/20 11:01 Dose: 25 mls/hr Documented by: CHAZ Metoprolol Succinate (Toprol Xl) 100 mg PO BID [facility] Last Admin: 03/07/20 11:55 Dose: 100 mg Documented by: CHAZ Rosuvastatin Calcium (Crestor) 10 mg PO BEDTIME [facility] Warfarin Sodium (Pharmacy To Dose - Warfarin) 1 dose .XX ASDIRECTED PRN PRN Reason: RX TO DOSE WARFARIN Warfarin Sodium (Coumadin) 2 mg PO QPM [facility] Stop: 03/07/20 18:01 Assessment/Plan Comment:: * 89-year-old male with a fairly acute onset of weakness and confusion due to Covid. * Brought to the ED by family as they are not able to care for him due to the rapid decline in his health due to Covid. * Vital signs in the ED reveal a temp of 36.3 Celsius, pulse 65 respiratory rate 20, blood pressure 141/81, pulse ox 92% on room air. * Labs in the ED revealed WBC 5.17, potassium 3.1, BUN 17 creatinine 1.1, GFR greater than 60, troponin less than 0.017, BNP 4928, positive for Covid. * Chest x-ray reveals faint groundglass appearance of infiltrates in both lungs. * Family reveals over the course of the last couple of days that patient has also had difficulty swallowing his medications. PLAN: COVID-19,Weakness, Pneumonia * Admit patient to the [facility] floor with continuous pulse ox and telemetry. * Start remdesivir and dexamethasone treatment. * Rocephin 2 g IV daily x5 days, Zithromax 500 mg daily x3 days. * Respiratory therapy consult to titrate oxygen to maintain sats above 90%. * PT OT to eval and treat * Speech therapy to evaluate due to difficulty swallowing pills. * Incentive spirometer and flutter valve. Congestive heart failure, Atrial fibrillation, Chronic anticoagulation * Lasix 20 mg IV today * Repeat chest x-ray in the a.m. * Pharmacy to consult regarding Coumadin dosing Hypokalemia * Patient was given 60 mg oral potassium in the emergency department * Check electrolytes in the a.m. Coumadin for DVT prophylaxis Patient is a DNR/DNI. Length of stay greater than 96 hours due to the standard 5-day treatment for C ovid. director pharmacy services to assist with discharge planning. - Mortality Measure Prognosis:: Poor
[2020-03-07] MEDS: cefTRIAXone 2 GM in Sodium Chloride 0.9% 100 ML IV SCH (14:08)
[2020-03-07] MEDS ORDERED: Acetaminophen 325 MG Tab PO PRN (17:08)
[2020-03-07] MEDS: Rosuvastatin 10 MG Tab PO SCH ×2 (21:46→22:29)
[2020-03-08] MEDS: REMDESIVIR 100 MG in Sodium Chloride 0.9% 100 ML IV SCH (04:10)
[2020-03-08] MEDS ORDERED: Magnesium Hydroxide 400 MG/5 ML Susp 30 ML Cup PO ONE (06:00)
[2020-03-08] MEDS: cefTRIAXone 2 GM in Sodium Chloride 0.9% 100 ML IV SCH (08:58)
--- NOTE | 2020-03-08 08:59 | CR ---
PROCEDURE INFORMATION: Exam: XR Chest, 1 View Exam date and time: 03/08/2020 7:42 AM Age: 89 years old Clinical indication: Shortness of breath; Patient HX: Covid+ TECHNIQUE: Imaging protocol: XR of the chest Views: 1 view. COMPARISON: CR Chest 1V Frontal 03/06/2020 12:57 PM FINDINGS: Lungs: Mild new airspace opacification along the left lung base. Unchanged diffuse right upper and right lower lobe airspace opacification and ground-glass opacification. Pleural space: Increased right costophrenic angle blunting. Heart/Mediastinum: The heart is chronically enlarged. Vasculature: Venous caliber is normal. Bones/joints: The bones are intact. Other findings: The patient is leaning toward the right and there is MARCEL rotation. IMPRESSION: New left lower lobe infiltrate indicating worsened pneumonia. There appears to be increased right costophrenic angle blunting which may reflect increased atelectasis. Otherwise, diffuse right upper and right lower lobe infiltrates are unchanged. Thank you for allowing us to participate in the care of your patient. Dictated and Authenticated by: Kwaku Garcia MD 03/08/2020 9:41 AM Central Time ([place] & [place]) [email or web address]
[2020-03-08] MEDS ORDERED: Potassium Chloride 20 MEQ Tab.ER PO ONE (09:00)
[2020-03-08] MEDS: Gabapentin 100 MG Cap PO SCH (09:03)
[2020-03-08] MEDS: Dexamethasone 4 MG Tab PO SCH (09:04)
[2020-03-08] MEDS: Metoprolol Succinate 50 MG Tab.ER PO SCH ×2 (09:07→20:47)
[2020-03-08] MEDS: Diltiazem 120 MG Cap.CD PO SCH (09:08)
[2020-03-08] MEDS: Digoxin 125 MCG Tab PO SCH (09:08)
[2020-03-08] MEDS: Azithromycin 500 MG in Sodium Chloride 0.9% 250 ML IV SCH (11:20)
--- NOTE | 2020-03-08 14:43 | PCM.PN ---
- General Info Date of Service: 03/08/20 Admission Dx/Problem (Free Text): Admission Diagnosis/Problem Admission Diagnosis/Problem Congestive heart failure Subjective Update: Patient is much more alert today. Conversing. Oriented to person only. Functional Status: Reports: Pain Controlled, Urinating (Incontinent.). Denies: Tolerating Diet (Appetite is fair.) - Review of Systems General: Reports: Weakness, Fatigue. Denies: Appetite (Fair) HEENT: Reports: No Symptoms Pulmonary: Reports: Shortness of Breath. Denies: Cough, Wheezing Cardiovascular: Reports: No Symptoms Gastrointestinal: Reports: No Symptoms Genitourinary: Reports: Incontinence Musculoskeletal: Reports: No Symptoms Skin: Reports: Rash (To groin) Neurological: Reports: Confusion Psychiatric: Reports: Confusion - Patient Data Vitals - Most Recent: Last Vital Signs Temp 97.0 F 03/08/20 11:46 Pulse 51 L 03/08/20 11:46 Resp 20 03/08/20 11:46 BP 124/81 03/08/20 11:46 Pulse Ox 94 L 03/08/20 12:07 Weight - Most Recent: 173 lb 6.4 oz I&O - Last 24 Hours: Intake & Output 03/07/20 03/08/20 03/08/20 22:59 06:59 14:59 Intake Total 738 0 240 Balance 738 0 240 Lab Results Last 24 Hours: Laboratory Results - last 24 hr 03/07/20 03/08/20 03/08/20 Range/Units 08:10 04:48 04:48 WBC 3.26 L (4.23-9.07) K/mm3 RBC 4.16 L (4.63-6.08) M/mm3 Hgb 12.0 L (13.7-17.5) gm/dl Hct 37.3 L (40.1-51.0) % MCV 89.7 (79.0-92.2) fl MCH 28.8 (25.7-32.2) pg MCHC 32.2 (32.2-35.5) g/dl RDW Std Deviation 45.3 H (35.1-43.9) fL Plt Count 185 (163-337) K/mm3 MPV 11.0 (9.4-12.3) fl Neut % (Auto) 81.0 H (34.0-67.9) % Lymph % (Auto) 9.8 L (21.8-53.1) % [place] % (Auto) 8.6 (5.3-12.2) % Eos % (Auto) 0 L (0.8-7.0) Baso % (Auto) 0.0 L (0.1-1.2) % Neut # (Auto) 2.64 (1.78-5.38) K/mm3 Lymph # (Auto) 0.32 L (1.32-3.57) K/mm3 [place] # (Auto) 0.28 L (0.30-0.82) K/mm3 Eos # (Auto) 0.00 L (0.04-0.54) K/mm3 Baso # (Auto) 0.00 L (0.01-0.08) K/mm3 Manual Slide Review Normal smear PT 35.7 H (9.7-12.0) SECONDS INR 3.42 D-Dimer, Quantitative 1.55 H (0.19-0.50) mg/L Sodium (136-145) mEq/L Potassium (3.5-5.1) mEq/L Chloride (98-107) mEq/L Carbon Dioxide (21-32) mEq/L Anion Gap (5-15) BUN (7-18) mg/dL Creatinine (0.7-1.3) mg/dL Est Cr Clr Drug Dosing mL/min Estimated GFR (MDRD) (>60) mL/min BUN/Creatinine Ratio (14-18) Glucose (83-115) mg/dL Calcium (8.5-10.1) mg/dL Magnesium (1.8-2.4) mg/dl Total Bilirubin (0.2-1.0) mg/dL AST (15-37) U/L ALT (16-63) U/L Alkaline Phosphatase (46-116) U/L C-Reactive Protein (<1.0) mg/dL Total Protein (6.4-8.2) g/dl Albumin (3.4-5.0) g/dl Globulin gm/dL Albumin/Globulin Ratio (1-2) Procalcitonin <0.05 (<0.10) ng/mL 03/08/20 Range/Units 04:48 WBC (4.23-9.07) K/mm3 RBC (4.63-6.08) M/mm3 Hgb (13.7-17.5) gm/dl Hct (40.1-51.0) % MCV (79.0-92.2) fl MCH (25.7-32.2) pg MCHC (32.2-35.5) g/dl RDW Std Deviation (35.1-43.9) fL Plt Count (163-337) K/mm3 MPV (9.4-12.3) fl Neut % (Auto) (34.0-67.9) % Lymph % (Auto) (21.8-53.1) % [place] % (Auto) (5.3-12.2) % Eos % (Auto) (0.8-7.0) Baso % (Auto) (0.1-1.2) % Neut # (Auto) (1.78-5.38) K/mm3 Lymph # (Auto) (1.32-3.57) K/mm3 [place] # (Auto) (0.30-0.82) K/mm3 Eos # (Auto) (0.04-0.54) K/mm3 Baso # (Auto) (0.01-0.08) K/mm3 Manual Slide Review PT (9.7-12.0) SECONDS INR D-Dimer, Quantitative (0.19-0.50) mg/L Sodium 138 (136-145) mEq/L Potassium 3.6 (3.5-5.1) mEq/L Chloride 101 (98-107) mEq/L Carbon Dioxide 29 (21-32) mEq/L Anion Gap 11.6 (5-15) BUN 20 H (7-18) mg/dL Creatinine 1.0 (0.7-1.3) mg/dL Est Cr Clr Drug Dosing 55.43 mL/min Estimated GFR (MDRD) > 60 (>60) mL/min BUN/Creatinine Ratio 20.0 H (14-18) Glucose 161 H (83-115) mg/dL Calcium 7.7 L (8.5-10.1) mg/dL Magnesium 2.2 (1.8-2.4) mg/dl Total Bilirubin 1.2 H (0.2-1.0) mg/dL AST 36 (15-37) U/L ALT 38 (16-63) U/L Alkaline Phosphatase 68 (46-116) U/L C-Reactive Protein 17.9 H* (<1.0) mg/dL Total Protein 6.5 (6.4-8.2) g/dl Albumin 2.5 L (3.4-5.0) g/dl Globulin 4.0 gm/dL Albumin/Globulin Ratio 0.6 L (1-2) Procalcitonin (<0.10) ng/mL Med Orders - Current: Current Medications Acetaminophen (Tylenol) 650 mg PO Q4H PRN PRN Reason: Pain Dexamethasone (Dexamethasone) 6 mg PO DAILY [facility] Stop: 03/16/20 09:01 Last Admin: 03/08/20 09:04 Dose: 6 mg Documented by: Digoxin (Lanoxin) 125 mcg PO DAILY [facility] Last Admin: 03/08/20 09:08 Dose: 125 mcg Documented by: Diltiazem HCl (Cardizem Cd) 120 mg PO DAILY [facility] Last Admin: 03/08/20 09:08 Dose: 120 mg Documented by: Gabapentin (Neurontin) 100 mg PO DAILY [facility] Last Admin: 03/08/20 09:03 Dose: 100 mg Documented by: Remdesivir 100 mg/ Sodium (Chloride) 100 mls @ 100 mls/hr IV Q24H [facility] Stop: 03/11/20 05:59 Last Admin: 03/08/20 04:10 Dose: 100 mls/hr Documented by: Ceftriaxone Sodium 2 gm/ (Sodium Chloride) 100 mls @ 200 mls/hr IV Q24H [facility] Stop: 03/11/20 10:29 Last Admin: 03/08/20 08:58 Dose: 200 mls/hr Documented by: Azithromycin 500 mg/ Sodium (Chloride) 250 mls @ 250 mls/hr IV Q24H [facility] Stop: 03/09/20 11:29 Last Admin: 03/08/20 11:20 Dose: 250 mls/hr Documented by: Metoprolol Succinate (Toprol Xl) 100 mg PO BID [facility] Last Admin: 03/08/20 09:07 Dose: 100 mg Documented by: Rosuvastatin Calcium (Crestor) 10 mg PO BEDTIME [facility] Last Admin: 03/07/20 22:29 Dose: Not Given Documented by: Warfarin Sodium (Pharmacy To Dose - Warfarin) 1 dose .XX ASDIRECTED PRN PRN Reason: RX TO DOSE WARFARIN Warfarin Sodium (Coumadin Sliding Scale) 0 each PO QPM [facility] Stop: 03/08/20 18:01 Discontinued Medications Acetaminophen (Tylenol) 975 mg PO NOW ONE Stop: 03/06/20 13:25 Last Admin: 03/06/20 13:32 Dose: 975 mg Documented by: Acetaminophen (Tylenol) Confirm Administered Dose 975 mg .ROUTE .STK-MED ONE Stop: 03/06/20 13:27 Last Admin: 03/06/20 13:32 Dose: Not Given Documented by: Enoxaparin Sodium (Lovenox) 30 mg SUBCUT Q12H [facility] Last Admin: 03/07/20 14:13 Dose: Not Given Documented by: Furosemide (Lasix) 20 mg IVPUSH NOW ONE Stop: 03/07/20 10:01 Last Admin: 03/07/20 11:01 Dose: 20 mg Documented by: Remdesivir 200 mg/ Sodium (Chloride) 250 mls @ 250 mls/hr IV ONETIME ONE Stop: 03/07/20 04:01 Last Admin: 03/07/20 03:45 Dose: 250 mls/hr Documented by: Magnesium Sulfate (Magnesium Sulfate In Water Premix) 2 gm in 50 mls @ 25 mls/hr IV ONETIME ONE Stop: 03/07/20 13:59 Last Admin: 03/07/20 11:01 Dose: 25 mls/hr Documented by: Magnesium Hydroxide (Milk Of Magnesia) 30 ml PO ONETIME ONE Stop: 03/08/20 06:01 Last Admin: 03/08/20 05:37 Dose: Not Given Documented by: Potassium Chloride (Potassium Chloride Solution) 40 meq PO ONETIME ONE Stop: 03/06/20 16:48 Last Admin: 03/07/20 02:57 Dose: Not Given Documented by: Potassium Chloride (Klor-Con M20) Confirm Administered Dose 40 meq .ROUTE .STK- MED ONE Stop: 03/06/20 17:06 Last Admin: 03/06/20 17:09 Dose: Not Given Documented by: Potassium Chloride (Klor-Con M20) 40 meq PO ONETIME ONE Stop: 03/06/20 17:09 Last Admin: 03/06/20 17:10 Dose: 40 meq Documented by: Potassium Chloride (Klor-Con M20) 20 meq PO ONETIME ONE Stop: 03/06/20 18:25 Last Admin: 03/06/20 18:42 Dose: 20 meq Documented by: Potassium Chloride (Klor-Con M20) 20 meq PO ONETIME ONE Stop: 03/07/20 10:01 Last Admin: 03/07/20 12:00 Dose: 20 meq Documented by: Potassium Chloride (Klor-Con M20) 40 meq PO ONETIME ONE Stop: 03/08/20 09:01 Last Admin: 03/08/20 09:08 Dose: 40 meq Documented by: Warfarin Sodium (Coumadin) 2 mg PO QPM [facility] Stop: 03/07/20 18:01 Last Admin: 03/07/20 17:39 Dose: 2 mg Documented by: - Exam Quality Assessment: Supplemental Oxygen (3 L per nasal cannula), DVT Prophylaxis (Patient is on Coumadin.) General: Alert, Cooperative, Mild Distress. No: Oriented (Oriented to name only.) HEENT: Pupils Equal, Pupils Reactive, Mucous Membr. Moist/[place] Neck: Supple, Trachea Midline. No: Lymphadenopathy Lungs: Decreased Breath Sounds, Crackles (Bilateral posterior) Cardiovascular: Regular Rate, Regular Rhythm, No Murmurs GI/Abdominal Exam: Normal Bowel Sounds, Soft, Non-Tender, No Distention, Hernia (To left groin.) (Male) Exam: Hernia (To left groin.), Rash Back Exam: Normal Inspection, Full Range of Motion Extremities: Normal Inspection, Normal Range of Motion, Non-Tender, No Pedal Edema, Normal Capillary Refill Peripheral Pulses: 1+: Dorsalis Pedis (L), Dorsalis Pedis (R), 2+: Radial (L), Radial (R) Skin: Warm, Dry, Rash (Groin) Neurological: No New Focal Deficit Psy/Mental Status: Alert, Normal Affect, Normal Mood Sepsis Event Note - Evaluation Sepsis Screening Result: No Definite Risk - Focused Exam Vital Signs: Vital Signs Temp Pulse Resp BP Pulse Ox Pulse Ox 03/08/20 12:07 94 L 03/08/20 11:46 97.0 F 51 L 20 124/81 94 L 03/08/20 09:08 70 109/69 03/08/20 09:07 70 109/69 93 L 03/08/20 07:26 99.0 F 57 L 18 133/69 90 L 03/08/20 06:03 92 L 03/08/20 03:13 97.9 F 50 L 26 H 142/82 H 89 L - Problem List & Annotations (1) COVID-19 SNOMED Code(s): 930324587 Code(s): U07.1 - COVID-19 Status: Acute Priority: High Current Visit: Yes (2) Congestive heart failure SNOMED Code(s): 26053223 Code(s): I50.9 - HEART FAILURE, UNSPECIFIED Status: Chronic Priority: High Current Visit: Yes Qualifiers: Heart failure type: unspecified Heart failure chronicity: unspecified Q ualified Code(s): I50.9 - Heart failure, unspecified (3) Hypokalemia SNOMED Code(s): 01394838 Code(s): E87.6 - HYPOKALEMIA Status: Acute Priority: High Current Visit: Yes (4) Weakness SNOMED Code(s): 15396937 Code(s): R53.1 - WEAKNESS Status: Acute Priority: High Current Visit: Yes (5) Atrial fibrillation SNOMED Code(s): 15555257 Code(s): I48.91 - UNSPECIFIED ATRIAL FIBRILLATION Status: Chronic Priority: Medium Current Visit: Yes Qualifiers: Atrial fibrillation type: unspecified Qualified Code(s): I48.91 - Unspecified atrial fibrillation (6) Chronic anticoagulation SNOMED Code(s): 147077910 Code(s): 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 OF ANTICOAGULANTS Status: Chronic Priority: Medium Current Visit: No (7) Pneumonia due to 2019 novel coronavirus SNOMED Code(s): 838573265992083442 Code(s): U07.1 - COVID-19; J12.89 - OTHER VIRAL PNEUMONIA Status: Acute Priority: High Current Visit: Yes - Problem List Review Problem List Initiated/Reviewed/Updated: Yes - My Orders Last 24 Hours: My Active Orders 03/07/20 13:56 Flutter Valve Therapy [RT Chest Physiotherapy] [RC] ASDIRECTED RT Incentive Spirometry [RC] Q1HWA 03/07/20 21:00 Rosuvastatin [Crestor] 10 mg PO BEDTIME 03/08/20 14:32 Extremity Non Vascular Lt [US] Routine 03/08/20 18:00 Warfarin Sliding Scale [Coumadin Sliding Scale] 0 each PO QPM 03/09/20 05:11 CBC WITH AUTO DIFF [HEME] DAILY COMPREHENSIVE METABOLIC PN,CMP [CHEM] DAILY CRP [C-REACTIVE PROTEIN] [CHEM] DAILY D-DIMER QUANTITATIVE [COAG] DAILY INR,PT,PROTHROMBIN TIME [COAG] AM MAGNESIUM [CHEM] DAILY 03/10/20 05:11 CBC WITH AUTO DIFF [HEME] DAILY COMPREHENSIVE METABOLIC PN,CMP [CHEM] DAILY CRP [C-REACTIVE PROTEIN] [CHEM] DAILY D-DIMER QUANTITATIVE [COAG] DAILY INR,PT,PROTHROMBIN TIME [COAG] AM MAGNESIUM [CHEM] DAILY 03/11/20 05:11 CBC WITH AUTO DIFF [HEME] DAILY COMPREHENSIVE METABOLIC PN,CMP [CHEM] DAILY CRP [C-REACTIVE PROTEIN] [CHEM] DAILY D-DIMER QUANTITATIVE [COAG] DAILY INR,PT,PROTHROMBIN TIME [COAG] AM MAGNESIUM [CHEM] DAILY 03/12/20 05:11 CBC WITH AUTO DIFF [HEME] DAILY COMPREHENSIVE METABOLIC PN,CMP [CHEM] DAILY CRP [C-REACTIVE PROTEIN] [CHEM] DAILY D-DIMER QUANTITATIVE [COAG] DAILY INR,PT,PROTHROMBIN TIME [COAG] AM MAGNESIUM [CHEM] DAILY 03/13/20 05:11 INR,PT,PROTHROMBIN TIME [COAG] AM 03/14/20 05:11 INR,PT,PROTHROMBIN TIME [COAG] AM - Assessment Assessment:: 03/08/20 * Patient is much more alert today, however he remains confused and is oriented to self only. * Continues on 3 L of oxygen * Labs reveal: D-dimer 1.55, potassium 3.6, C-reactive protein 17.9. * Chest x-ray reveals: New left lower lobe infiltrate indicating worsened pneumonia. There appears to be increased right costophrenic angle blunting which may reflect increased atelectasis. Otherwise, diffuse right upper and right lower lobe infiltrates are unchanged. * Rocephin and Zithromax for pneumonia. * Remdesivir and dexamethasone for Covid * Coumadin for DVT prophylaxis * Incentive spirometer and flutter valve every hour while awake. * Mass/hernia to left groin. - Plan Plan:: * 89-year-old male with a fairly acute onset of weakness and confusion due to Covid. * Brought to the ED by family as they are not able to care for him due to the rapid decline in his health due to Covid. * Vital signs in the ED reveal a temp of 36.3 Celsius, pulse 65 respiratory rate 20, blood pressure 141/81, pulse ox 92% on room air. * Labs in the ED revealed WBC 5.17, potassium 3.1, BUN 17 creatinine 1.1, GFR greater than 60, troponin less than 0.017, BNP 4928, positive for Covid. * Chest x-ray reveals faint groundglass appearance of infiltrates in both lungs. * Family reveals over the course of the last couple of days that patient has also had difficulty swallowing his medications. PLAN: COVID-19,Weakness, Pneumonia * Admit patient to the [facility] floor with continuous pulse ox and telemetry. * Start remdesivir and dexamethasone treatment. * Rocephin 2 g IV daily x5 days, Zithromax 500 mg daily x3 days. * Respiratory therapy consult to titrate oxygen to maintain sats above 90%. * PT OT to eval and treat * Speech therapy to evaluate due to difficulty swallowing pills. * Incentive spirometer and flutter valve. Congestive heart failure, Atrial fibrillation, Chronic anticoagulation * Lasix 20 mg IV today * Repeat chest x-ray in the a.m. * Pharmacy to consult regarding Coumadin dosing Hypokalemia * Patient was given 60 mg oral potassium in the emergency department * Check electrolytes in the a.m. Coumadin for DVT prophylaxis Patient is a DNR/DNI. Length of stay greater than 96 hours due to the standard 5-day treatment for Covid. auto specialty services manager to assist with discharge planning. 03/08/20 * Continue remdesivir and dexamethasone * Continue Rocephin and Zithromax * Respiratory care to continue titrating oxygen and assisting patient with incentive spirometer and flutter valve * PT and OT eval and treat * Potassium 40 mEq p.o. given today. * Ultrasound to hernia to left groin * Swallowing evaluation unable to be completed at this time by speech therapy as speech therapist does not see Covid patients. Nursing staff has been feeding the patient all meals with soft foods and a straw for beverages and he seems to be tolerating that. * Repeat labs in the a.m. Coumadin for DVT prophylaxis. Patient is a DNR/DNI. Length of stay likely greater than 96 hours due to the standard treatment of Covid.
--- NOTE | 2020-03-08 15:46 | US ---
PROCEDURE INFORMATION: Exam: US Left Non-Vascular Joint or Other Extremity Structure, Limited Lower Extremity Exam date and time: 03/08/2020 3:06 PM Age: 89 years old Clinical indication: Mass or lump; Upper leg; Patient HX: Left groin lump imaged. TECHNIQUE: Imaging protocol: Left US joint or other nonvascular extremity structure or structures. Real-time ultrasound with image documentation. Limited study. Exam focused on the lower extremity in the region of clinical interest. COMPARISON: No relevant prior studies available. FINDINGS: Soft tissues: Grayscale interrogation was made through the left groin with comparison views obtained from the right. Of palpable lump in the left groin contains fat and bowel and comprises a hernia measuring 5.8 x 4.7 x 2.4 cm. Due to the patient's current illness, he was unable to engage in straining/Valsalva maneuvers. The hernia contents are mobile but they were not reduced during the examination. IMPRESSION: Bowel containing left groin hernia as above. No acute abnormality. Thank you for allowing us to participate in the care of your patient. Dictated and Authenticated by: Kwaku Garcia MD 03/08/2020 4:44 PM Central Time ([place] & [place]) [email or web address]
[2020-03-08] MEDS ORDERED: Warfarin Sliding Scale PO SCH (18:00)
[2020-03-08] MEDS: Rosuvastatin 10 MG Tab PO SCH (20:47)
[2020-03-09] MEDS: REMDESIVIR 100 MG in Sodium Chloride 0.9% 100 ML IV SCH (05:42)
[2020-03-09] MEDS: Digoxin 125 MCG Tab PO SCH (08:49)
[2020-03-09] MEDS: Gabapentin 100 MG Cap PO SCH (08:50)
[2020-03-09] MEDS: Metoprolol Succinate 50 MG Tab.ER PO SCH ×2 (08:50→20:34)
[2020-03-09] MEDS: Dexamethasone 4 MG Tab PO SCH (08:51)
[2020-03-09] MEDS: Furosemide 20 MG Tab PO SCH (08:53)
[2020-03-09] MEDS: Diltiazem 120 MG Cap.CD PO SCH (09:07)
[2020-03-09] MEDS: cefTRIAXone 2 GM in Sodium Chloride 0.9% 100 ML IV SCH (10:28)
[2020-03-09] MEDS: Azithromycin 500 MG in Sodium Chloride 0.9% 250 ML IV SCH (11:10)
--- NOTE | 2020-03-09 11:46 | PCM.PN ---
- General Info Date of Service: 03/09/20 Admission Dx/Problem (Free Text): Admission Diagnosis/Problem Admission Diagnosis/Problem Congestive heart failure Subjective Update: About the same today. Oxygen is down to 2-1/2 L per nasal cannula. He remains confused oriented to name only. Functional Status: Reports: Pain Controlled, Tolerating Diet (Mechanical soft diet. Nursing is feeding the patient all meals.), Ambulating (With physical therapy), Urinating (Incontinent) - Review of Systems General: Reports: Weakness HEENT: Reports: No Symptoms Pulmonary: Reports: No Symptoms. Denies: Cough, Sputum, Wheezing Cardiovascular: Reports: No Symptoms Gastrointestinal: Reports: No Symptoms Genitourinary: Reports: Incontinence Musculoskeletal: Reports: No Symptoms Skin: Reports: No Symptoms Neurological: Reports: Confusion Psychiatric: Reports: Confusion - Patient Data Vitals - Most Recent: Last Vital Signs Temp 97.9 F 03/09/20 07:29 Pulse 78 03/09/20 09:07 Resp 18 03/09/20 07:29 BP 136/75 03/09/20 09:07 Pulse Ox 100 03/09/20 10:12 Weight - Most Recent: 176 lb 8 oz I&O - Last 24 Hours: Intake & Output 03/08/20 03/09/20 03/09/20 22:59 06:59 14:59 Intake Total 550 400 120 Balance 550 400 120 Lab Results Last 24 Hours: Laboratory Results - last 24 hr 03/09/20 03/09/20 03/09/20 Range/Units 06:30 06:30 06:30 WBC 7.25 (4.23-9.07) K/mm3 RBC 4.23 L (4.63-6.08) M/mm3 Hgb 12.3 L (13.7-17.5) gm/dl Hct 37.6 L (40.1-51.0) % MCV 88.9 (79.0-92.2) fl MCH 29.1 (25.7-32.2) pg MCHC 32.7 (32.2-35.5) g/dl RDW Std Deviation 45.0 H (35.1-43.9) fL Plt Count 248 (163-337) K/mm3 MPV 10.8 (9.4-12.3) fl Neut % (Auto) 87.3 H (34.0-67.9) % Lymph % (Auto) 6.5 L (21.8-53.1) % [place] % (Auto) 5.8 (5.3-12.2) % Eos % (Auto) 0 L (0.8-7.0) Baso % (Auto) 0.1 (0.1-1.2) % Neut # (Auto) 6.33 H (1.78-5.38) K/mm3 Lymph # (Auto) 0.47 L (1.32-3.57) K/mm3 [place] # (Auto) 0.42 (0.30-0.82) K/mm3 Eos # (Auto) 0.00 L (0.04-0.54) K/mm3 Baso # (Auto) 0.01 (0.01-0.08) K/mm3 PT 30.5 H (9.7-12.0) SECONDS INR 2.91 D-Dimer, Quantitative 1.56 H (0.19-0.50) mg/L Sodium 138 (136-145) mEq/L Potassium 4.1 (3.5-5.1) mEq/L Chloride 103 (98-107) mEq/L Carbon Dioxide 28 (21-32) mEq/L Anion Gap 11.1 (5-15) BUN 28 H (7-18) mg/dL Creatinine 0.9 (0.7-1.3) mg/dL Est Cr Clr Drug Dosing 61.59 mL/min Estimated GFR (MDRD) > 60 (>60) mL/min BUN/Creatinine Ratio 31.1 H (14-18) Glucose 170 H (83-115) mg/dL Calcium 8.1 L (8.5-10.1) mg/dL Magnesium 2.2 (1.8-2.4) mg/dl Total Bilirubin 1.1 H (0.2-1.0) mg/dL AST 47 H (15-37) U/L ALT 59 (16-63) U/L Alkaline Phosphatase 72 (46-116) U/L C-Reactive Protein 10.1 H* (<1.0) mg/dL Total Protein 6.8 (6.4-8.2) g/dl Albumin 2.7 L (3.4-5.0) g/dl Globulin 4.1 gm/dL Albumin/Globulin Ratio 0.7 L (1-2) Med Orders - Current: Current Medications Acetaminophen (Tylenol) 650 mg PO Q4H PRN PRN Reason: Pain Dexamethasone (Dexamethasone) 6 mg PO DAILY [facility] Stop: 03/16/20 09:01 Last Admin: 03/09/20 08:51 Dose: 6 mg Documented by: Digoxin (Lanoxin) 125 mcg PO DAILY [facility] Last Admin: 03/09/20 08:49 Dose: 125 mcg Documented by: Diltiazem HCl (Cardizem Cd) 120 mg PO DAILY [facility] Last Admin: 03/09/20 09:07 Dose: 120 mg Documented by: Furosemide (Lasix) 10 mg PO SUTUWEFRSA [facility] Last Admin: 03/09/20 08:53 Dose: 10 mg Documented by: Furosemide (Lasix) 20 mg PO MOTH [facility] Gabapentin (Neurontin) 100 mg PO DAILY [facility] Last Admin: 03/09/20 08:50 Dose: 100 mg Documented by: Remdesivir 100 mg/ Sodium (Chloride) 100 mls @ 100 mls/hr IV Q24H [facility] Stop: 03/11/20 05:59 Last Admin: 03/09/20 05:42 Dose: 100 mls/hr Documented by: Ceftriaxone Sodium 2 gm/ (Sodium Chloride) 100 mls @ 200 mls/hr IV Q24H [facility] Stop: 03/11/20 10:29 Last Admin: 03/09/20 10:28 Dose: 200 mls/hr Documented by: Metoprolol Succinate (Toprol Xl) 100 mg PO BID [facility] Last Admin: 03/09/20 08:50 Dose: 100 mg Documented by: Rosuvastatin Calcium (Crestor) 10 mg PO BEDTIME [facility] Last Admin: 03/08/20 20:47 Dose: 10 mg Documented by: Warfarin Sodium (Pharmacy To Dose - Warfarin) 1 dose .XX ASDIRECTED PRN PRN Reason: RX TO DOSE WARFARIN Warfarin Sodium (Coumadin) 3 mg PO QPM [facility] Stop: 03/09/20 18:01 Discontinued Medications Acetaminophen (Tylenol) 975 mg PO NOW ONE Stop: 03/06/20 13:25 Last Admin: 03/06/20 13:32 Dose: 975 mg Documented by: Acetaminophen (Tylenol) Confirm Administered Dose 975 mg .ROUTE .STK-MED ONE Stop: 03/06/20 13:27 Last Admin: 03/06/20 13:32 Dose: Not Given Documented by: Enoxaparin Sodium (Lovenox) 30 mg SUBCUT Q12H [facility] Last Admin: 03/07/20 14:13 Dose: Not Given Documented by: Furosemide (Lasix) 20 mg IVPUSH NOW ONE Stop: 03/07/20 10:01 Last Admin: 03/07/20 11:01 Dose: 20 mg Documented by: Remdesivir 200 mg/ Sodium (Chloride) 250 mls @ 250 mls/hr IV ONETIME ONE Stop: 03/07/20 04:01 Last Admin: 03/07/20 03:45 Dose: 250 mls/hr Documented by: Azithromycin 500 mg/ Sodium (Chloride) 250 mls @ 250 mls/hr IV Q24H [facility] Stop: 03/09/20 11:29 Last Admin: 03/09/20 11:10 Dose: 250 mls/hr Documented by: Magnesium Sulfate (Magnesium Sulfate In Water Premix) 2 gm in 50 mls @ 25 mls/hr IV ONETIME ONE Stop: 03/07/20 13:59 Last Admin: 03/07/20 11:01 Dose: 25 mls/hr Documented by: Magnesium Hydroxide (Milk Of Magnesia) 30 ml PO ONETIME ONE Stop: 03/08/20 06:01 Last Admin: 03/08/20 05:37 Dose: Not Given Documented by: Potassium Chloride (Potassium Chloride Solution) 40 meq PO ONETIME ONE Stop: 03/06/20 16:48 Last Admin: 03/07/20 02:57 Dose: Not Given Documented by: Potassium Chloride (Klor-Con M20) Confirm Administered Dose 40 meq .ROUTE .STK- MED ONE Stop: 03/06/20 17:06 Last Admin: 03/06/20 17:09 Dose: Not Given Documented by: Potassium Chloride (Klor-Con M20) 40 meq PO ONETIME ONE Stop: 03/06/20 17:09 Last Admin: 03/06/20 17:10 Dose: 40 meq Documented by: Potassium Chloride (Klor-Con M20) 20 meq PO ONETIME ONE Stop: 03/06/20 18:25 Last Admin: 03/06/20 18:42 Dose: 20 meq Documented by: Potassium Chloride (Klor-Con M20) 20 meq PO ONETIME ONE Stop: 03/07/20 10:01 Last Admin: 03/07/20 12:00 Dose: 20 meq Documented by: Potassium Chloride (Klor-Con M20) 40 meq PO ONETIME ONE Stop: 03/08/20 09:01 Last Admin: 03/08/20 09:08 Dose: 40 meq Documented by: Warfarin Sodium (Coumadin) 2 mg PO QPM [facility] Stop: 03/07/20 18:01 Last Admin: 03/07/20 17:39 Dose: 2 mg Documented by: Warfarin Sodium (Coumadin Sliding Scale) 0 each PO QPM [facility] Stop: 03/08/20 18:01 Last Admin: 03/08/20 18:09 Dose: Not Given Documented by: - Exam Quality Assessment: Supplemental Oxygen (2-1/2 L per nasal cannula), DVT Prophylaxis (Coumadin) General: Alert, Cooperative. No: Oriented (Oriented to person only) HEENT: Pupils Equal, Pupils Reactive, Mucous Membr. Moist/[place] Neck: Supple, Trachea Midline. No: Lymphadenopathy Lungs: Normal Respiratory Effort, Decreased Breath Sounds, Crackles (Lateral bases) Cardiovascular: Irregular Rhythm (History of atrial fibrillation) GI/Abdominal Exam: Normal Bowel Sounds, Soft, Non-Tender, No Distention (Male) Exam: Deferred Back Exam: Normal Inspection, Full Range of Motion Extremities: Normal Inspection, Normal Range of Motion, Non-Tender, No Pedal Edema, Normal Capillary Refill Peripheral Pulses: 1+: Dorsalis Pedis (L), Dorsalis Pedis (R), 2+: Radial (L), Radial (R) Skin: Rash (To groin) Neurological: No New Focal Deficit Psy/Mental Status: Alert, Normal Affect, Normal Mood Sepsis Event Note - Evaluation Sepsis Screening Result: No Definite Risk - Focused Exam Vital Signs: Vital Signs Temp Pulse Resp BP Pulse Ox Pulse Ox 03/09/20 10:12 100 03/09/20 09:07 78 136/75 03/09/20 08:50 78 136/75 03/09/20 08:49 78 03/09/20 07:29 97.9 F 78 18 136/75 93 L 03/09/20 04:46 93 L 03/09/20 03:36 97.9 F 50 L 20 131/79 92 L - Problem List & Annotations (1) COVID-19 SNOMED Code(s): 395301095 Code(s): U07.1 - COVID-19 Status: Acute Priority: High Current Visit: Yes (2) Congestive heart failure SNOMED Code(s): 91580288 Code(s): I50.9 - HEART FAILURE, UNSPECIFIED Status: Chronic Priority: High Current Visit: Yes Qualifiers: Heart failure type: unspecified Heart failure chronicity: unspecified Qualified Code(s): I50.9 - Heart failure, unspecified (3) Hypokalemia SNOMED Code(s): 58256068 Code(s): E87.6 - HYPOKALEMIA Status: Acute Priority: High Current Visit: Yes (4) Weakness SNOMED Code(s): 35474349 Code(s): R53.1 - WEAKNESS Status: Acute Priority: High Current Visit: Yes (5) Atrial fibrillation SNOMED Code(s): 30555153 Code(s): I48.91 - UNSPECIFIED ATRIAL FIBRILLATION Status: Chronic Priority: Medium Current Visit: Yes Qualifiers: Atrial fibrillation type: unspecified Qualified Code(s): I48.91 - Unspecified atrial fibrillation (6) Chronic anticoagulation SNOMED Code(s): 123809557 Code(s): Z79.01 - BLOCK ENGRAVER (CURRENT) USE OF ANTICOAGULANTS Status: Chronic Priority: Medium Current Visit: No (7) Pneumonia due to 2019 novel coronavirus SNOMED Code(s): 014477141537622887 Code(s): U07.1 - COVID-19; J12.89 - OTHER VIRAL PNEUMONIA Status: Acute Priority: High Current Visit: Yes - Problem List Review Problem List Initiated/Reviewed/Updated: Yes - My Orders Last 24 Hours: My Active Orders 03/08/20 14:55 Antiembolic Devices [RC] QSHIFT DERECK Hose [Antiembolic Hose] [OM.PC] Routine 03/09/20 08:00 Furosemide [Lasix] 10 mg PO SUTUWEFRSA 03/09/20 Lunch Mechanical Soft Diet [DIET] 03/09/20 18:00 Warfarin [Coumadin] 3 mg PO QPM 03/10/20 05:11 CBC WITH AUTO DIFF [HEME] DAILY COMPREHENSIVE METABOLIC PN,CMP [CHEM] DAILY CRP [C-REACTIVE PROTEIN] [CHEM] DAILY D-DIMER QUANTITATIVE [COAG] DAILY INR,PT,PROTHROMBIN TIME [COAG] AM MAGNESIUM [CHEM] DAILY 03/10/20 08:00 Furosemide [Lasix] 20 mg PO MOTH 03/11/20 05:11 CBC WITH AUTO DIFF [HEME] DAILY COMPREHENSIVE METABOLIC PN,CMP [CHEM] DAILY CRP [C-REACTIVE PROTEIN] [CHEM] DAILY D-DIMER QUANTITATIVE [COAG] DAILY INR,PT,PROTHROMBIN TIME [COAG] AM MAGNESIUM [CHEM] DAILY 03/12/20 05:11 CBC WITH AUTO DIFF [HEME] DAILY COMPREHENSIVE METABOLIC PN,CMP [CHEM] DAILY CRP [C-REACTIVE PROTEIN] [CHEM] DAILY D-DIMER QUANTITATIVE [COAG] DAILY INR,PT,PROTHROMBIN TIME [COAG] AM MAGNESIUM [CHEM] DAILY 03/13/20 05:11 INR,PT,PROTHROMBIN TIME [COAG] AM 03/14/20 05:11 INR,PT,PROTHROMBIN TIME [COAG] AM - Assessment Assessment:: 03/08/20 * Patient is much more alert today, however he remains confused and is oriented to self only. * Continues on 3 L of oxygen * Labs reveal: D-dimer 1.55, potassium 3.6, C-reactive protein 17.9. * Chest x-ray reveals: New left lower lobe infiltrate indicating worsened pneumonia. There appears to be increased right costophrenic angle blunting which may reflect increased atelectasis. Otherwise, diffuse right upper and right lower lobe infiltrates are unchanged. * Rocephin and Zithromax for pneumonia. * Remdesivir and dexamethasone for Covid * Coumadin for DVT prophylaxis * Incentive spirometer and flutter valve every hour while awake. * Mass/hernia to left groin. 03/09/20 * Remains confused oriented to self only. On morning rounds he told me that he has not eaten supper yet. * On 2-1/2 L of oxygen per nasal cannula. * Day 3 of Zithromax and Rocephin. * Day 3 of remdesivir and dexamethasone. * Written for DVT prophylaxis * Ultrasound of the left groin mass/lump: Palpable lump in the left groin contains fat and bowel and compromises a hernia measuring 5.8 x 4.7 x 2.4 cm. Bowel containing left groin hernia as above. No acute abnormality. * Labs reveal: D-dimer 1.56, potassium 4.1, BUN 28, creatinine 0.9, GFR greater than 60, C-reactive protein 10.1, procalcitonin that was drawn on 1016 less than 0.05. - Plan Plan:: * 89-year-old male with a fairly acute onset of weakness and confusion due to Covid. * Brought to the ED by family as they are not able to care for him due to the rapid decline in his health due to Covid. * Vital signs in the ED reveal a temp of 36.3 Celsius, pulse 65 respiratory rate 20, blood pressure 141/81, pulse ox 92% on room air. * Labs in the ED revealed WBC 5.17, potassium 3.1, BUN 17 creatinine 1.1, GFR greater than 60, troponin less than 0.017, BNP 4928, positive for Covid. * Chest x-ray reveals faint groundglass appearance of infiltrates in both lungs. * Family reveals over the course of the last couple of days that patient has also had difficulty swallowing his medications. PLAN: COVID-19,Weakness, Pneumonia * Admit patient to the [facility] floor with continuous pulse ox and telemetry. * Start remdesivir and dexamethasone treatment. * Rocephin 2 g IV daily x5 days, Zithromax 500 mg daily x3 days. * Respiratory therapy consult to titrate oxygen to maintain sats above 90%. * PT OT to eval and treat * Speech therapy to evaluate due to difficulty swallowing pills. * Incentive spirometer and flutter valve. Congestive heart failure, Atrial fibrillation, Chronic anticoagulation * Lasix 20 mg IV today * Repeat chest x-ray in the a.m. * Pharmacy to consult regarding Coumadin dosing Hypokalemia * Patient was given 60 mg oral potassium in the emergency department * Check electrolytes in the a.m. Coumadin for DVT prophylaxis Patient is a DNR/DNI. Length of stay greater than 96 hours due to the standard 5-day treatment for Covid. enrollment services dean to assist with discharge planning. 03/08/20 * Continue remdesivir and dexamethasone * Continue Rocephin and Zithromax * Respiratory care to continue titrating oxygen and assisting patient with incentive spirometer and flutter valve * PT and OT eval and treat * Potassium 40 mEq p.o. given today. * Ultrasound to hernia to left groin * Swallowing evaluation unable to be completed at this time by speech therapy as speech therapist does not see Covid patients. Nursing staff has been feeding the patient all meals with soft foods and a straw for beverages and he seems to be tolerating that. * Repeat labs in the a.m. Coumadin for DVT prophylaxis. Patient is a DNR/DNI. Length of stay likely greater than 96 hours due to the standard treatment of Covid. 03/09/20 * Continue remdesivir and dexamethasone * Continue Rocephin and Zithromax * Continue to titrate oxygen to room air. * PT and OT * Nursing staff to continue feeding the patient mechanical soft diet. * Will not draw labs tomorrow Coumadin for DVT prophylaxis Patient is a DNR/DNI Length of stay will be greater than 96 hours due to the standard treatment of Covid.
[2020-03-09] MEDS ORDERED: Warfarin 3 MG Tab PO SCH (18:00)
[2020-03-09] MEDS: Insulin Lispro 100 Units/ML 3 ML Vial SUBCUT SCH ×2 (18:13→21:42)
[2020-03-09] MEDS: Rosuvastatin 10 MG Tab PO SCH (20:33)
[2020-03-10] MEDS: REMDESIVIR 100 MG in Sodium Chloride 0.9% 100 ML IV SCH (04:01)
[2020-03-10] MEDS: Insulin Lispro 100 Units/ML 3 ML Vial SUBCUT SCH ×4 (06:10→21:55)
[2020-03-10] MEDS ORDERED: Furosemide 20 MG Tab PO SCH (08:00)
[2020-03-10] MEDS: Digoxin 125 MCG Tab PO SCH (09:01)
[2020-03-10] MEDS: Dexamethasone 4 MG Tab PO SCH (09:02)
[2020-03-10] MEDS: Gabapentin 100 MG Cap PO SCH (09:02)
[2020-03-10] MEDS: Metoprolol Succinate 50 MG Tab.ER PO SCH ×2 (09:03→21:21)
[2020-03-10] MEDS: Diltiazem 120 MG Cap.CD PO SCH (09:04)
[2020-03-10] MEDS: cefTRIAXone 2 GM in Sodium Chloride 0.9% 100 ML IV SCH (09:15)
--- NOTE | 2020-03-10 09:46 | CR ---
PROCEDURE INFORMATION: Exam: XR Chest, 1 View Exam date and time: 03/10/2020 7:23 AM Age: 89 years old Clinical indication: Shortness of breath TECHNIQUE: Imaging protocol: XR of the chest Views: 1 view. COMPARISON: CR Chest 1V Frontal 03/08/2020 7:42 AM FINDINGS: Lungs: Improved lung aeration. Decreased atelectasis. Persistent mild opacification throughout right upper lobe and small areas of the bilateral lower lobes. Pleural space: Decreased, small right costophrenic angle blunting. Heart/Mediastinum: Chronic cardiomegaly. Vasculature: In retrospect, the venous caliber was mildly increased, now reduced/normal. Bones/joints: The bones are intact. IMPRESSION: 1. Resolved acute pulmonary edema. 2. Decreased atelectasis but with persistent right upper and bilateral lower lobe opacification likely reflecting continuing pneumonia. Thank you for allowing us to participate in the care of your patient. Dictated and Authenticated by: Kwaku Garcia MD 03/10/2020 9:11 AM Central Time ([place] & [place]) [email or web address]
--- NOTE | 2020-03-10 12:54 | PCM.PN ---
- General Info Date of Service: 03/10/20 Admission Dx/Problem (Free Text): Admission Diagnosis/Problem Admission Diagnosis/Problem Congestive heart failure Subjective Update: Patient is much more alert today however he is still confused oriented to name only. He is feeding himself breakfast today which is pretty significant as he has been a feeder up until today. Functional Status: Reports: Pain Controlled, Tolerating Diet, Ambulating, U rinating (Incontinent) - Review of Systems General: Reports: No Symptoms, Appetite HEENT: Reports: No Symptoms Pulmonary: Reports: No Symptoms Cardiovascular: Reports: No Symptoms Gastrointestinal: Reports: No Symptoms Genitourinary: Reports: Incontinence Musculoskeletal: Reports: No Symptoms Skin: Reports: No Symptoms Neurological: Reports: Confusion Psychiatric: Reports: Confusion - Patient Data Vitals - Most Recent: Last Vital Signs Temp 98.2 F 03/10/20 11:37 Pulse 65 03/10/20 11:37 Resp 20 03/10/20 11:37 BP 126/103 H 03/10/20 11:37 Pulse Ox 91 L 03/10/20 11:37 Weight - Most Recent: 178 lb 3.2 oz I&O - Last 24 Hours: Intake & Output 03/09/20 03/10/20 03/10/20 22:59 06:59 14:59 Intake Total 1570 600 360 Output Total 250 Balance 1570 350 360 Lab Results Last 24 Hours: Laboratory Results - last 24 hr 03/09/20 03/10/20 03/10/20 Range/Units 17:51 04:47 04:47 WBC 8.64 (4.23-9.07) K/mm3 RBC 4.07 L (4.63-6.08) M/mm3 Hgb 11.7 L (13.7-17.5) gm/dl Hct 36.0 L (40.1-51.0) % MCV 88.5 (79.0-92.2) fl MCH 28.7 (25.7-32.2) pg MCHC 32.5 (32.2-35.5) g/dl RDW Std Deviation 44.3 H (35.1-43.9) fL Plt Count 221 (163-337) K/mm3 MPV 11.0 (9.4-12.3) fl Neut % (Auto) 87.6 H (34.0-67.9) % Lymph % (Auto) 6.1 L (21.8-53.1) % Mckenzie % (Auto) 6.0 (5.3-12.2) % Eos % (Auto) 0 L (0.8-7.0) Baso % (Auto) 0.1 (0.1-1.2) % Neut # (Auto) 7.56 H (1.78-5.38) K/mm3 Lymph # (Auto) 0.53 L (1.32-3.57) K/mm3 Mckenzie # (Auto) 0.52 (0.30-0.82) K/mm3 Eos # (Auto) 0.00 L (0.04-0.54) K/mm3 Baso # (Auto) 0.01 (0.01-0.08) K/mm3 Manual Slide Review Abnormal smear PT 35.9 H (9.7-12.0) SECONDS INR 3.44 D-Dimer, Quantitative 1.68 H (0.19-0.50) mg/L Sodium (136-145) mEq/L Potassium (3.5-5.1) mEq/L Chloride (98-107) mEq/L Carbon Dioxide (21-32) mEq/L Anion Gap (5-15) BUN (7-18) mg/dL Creatinine (0.7-1.3) mg/dL Est Cr Clr Drug Dosing mL/min Estimated GFR (MDRD) (>60) mL/min BUN/Creatinine Ratio (14-18) Glucose (83-115) mg/dL POC Glucose 260 H (83-110) mg/dL Calcium (8.5-10.1) mg/dL Magnesium (1.8-2.4) mg/dl Total Bilirubin (0.2-1.0) mg/dL AST (15-37) U/L ALT (16-63) U/L Alkaline Phosphatase (46-116) U/L C-Reactive Protein (<1.0) mg/dL Total Protein (6.4-8.2) g/dl Albumin (3.4-5.0) g/dl Globulin gm/dL Albumin/Globulin Ratio (1-2) 03/10/20 03/10/20 03/10/20 Range/Units 04:47 05:55 10:59 WBC (4.23-9.07) K/mm3 RBC (4.63-6.08) M/mm3 Hgb (13.7-17.5) gm/dl Hct (40.1-51.0) % MCV (79.0-92.2) fl MCH (25.7-32.2) pg MCHC (32.2-35.5) g/dl RDW Std Deviation (35.1-43.9) fL Plt Count (163-337) K/mm3 MPV (9.4-12.3) fl Neut % (Auto) (34.0-67.9) % Lymph % (Auto) (21.8-53.1) % Mckenzie % (Auto) (5.3-12.2) % Eos % (Auto) (0.8-7.0) Baso % (Auto) (0.1-1.2) % Neut # (Auto) (1.78-5.38) K/mm3 Lymph # (Auto) (1.32-3.57) K/mm3 Mckenzie # (Auto) (0.30-0.82) K/mm3 Eos # (Auto) (0.04-0.54) K/mm3 Baso # (Auto) (0.01-0.08) K/mm3 Manual Slide Review PT (9.7-12.0) SECONDS INR D-Dimer, Quantitative (0.19-0.50) mg/L Sodium 136 (136-145) mEq/L Potassium 3.8 (3.5-5.1) mEq/L Chloride 100 (98-107) mEq/L Carbon Dioxide 27 (21-32) mEq/L Anion Gap 12.8 (5-15) BUN 25 H (7-18) mg/dL Creatinine 0.8 (0.7-1.3) mg/dL Est Cr Clr Drug Dosing 71.40 mL/min Estimated GFR (MDRD) > 60 (>60) mL/min BUN/Creatinine Ratio 31.3 H (14-18) Glucose 141 H (83-115) mg/dL POC Glucose 141 H 320 H (83-110) mg/dL Calcium 8.1 L (8.5-10.1) mg/dL Magnesium 2.0 (1.8-2.4) mg/dl Total Bilirubin 1.0 (0.2-1.0) mg/dL AST 43 H (15-37) U/L ALT 66 H (16-63) U/L Alkaline Phosphatase 68 (46-116) U/L C-Reactive Protein 5.8 H* (<1.0) mg/dL Total Protein 6.5 (6.4-8.2) g/dl Albumin 2.7 L (3.4-5.0) g/dl Globulin 3.8 gm/dL Albumin/Globulin Ratio 0.7 L (1-2) Med Orders - Current: Current Medications Acetaminophen (Tylenol) 650 mg PO Q4H PRN PRN Reason: Pain Dexamethasone (Dexamethasone) 6 mg PO DAILY [facility] Stop: 03/16/20 09:01 Last Admin: 03/10/20 09:02 Dose: 6 mg Documented by: Digoxin (Lanoxin) 125 mcg PO DAILY [facility] Last Admin: 03/10/20 09:01 Dose: 125 mcg Documented by: Diltiazem HCl (Cardizem Cd) 120 mg PO DAILY [facility] Last Admin: 03/10/20 09:04 Dose: 120 mg Documented by: Furosemide (Lasix) 10 mg PO SUTUWEFRSA [facility] Last Admin: 03/09/20 08:53 Dose: 10 mg Documented by: Furosemide (Lasix) 20 mg PO MOTH [facility] Last Admin: 03/10/20 09:08 Dose: 20 mg Documented by: Gabapentin (Neurontin) 100 mg PO DAILY [facility] Last Admin: 03/10/20 09:02 Dose: 100 mg Documented by: Remdesivir 100 mg/ Sodium (Chloride) 100 mls @ 100 mls/hr IV Q24H [facility] Stop: 03/11/20 05:59 Last Admin: 03/10/20 04:01 Dose: 100 mls/hr Documented by: Ceftriaxone Sodium 2 gm/ (Sodium Chloride) 100 mls @ 200 mls/hr IV Q24H [facility] Stop: 03/11/20 10:29 Last Admin: 03/10/20 09:15 Dose: 200 mls/hr Documented by: Insulin Human Lispro (Humalog) 0 unit SUBCUT QIDACANDBED [facility]; Protocol Last Admin: 03/10/20 11:01 Dose: 4 units Documented by: Metoprolol Succinate (Toprol Xl) 100 mg PO BID [facility] Last Admin: 03/10/20 09:03 Dose: 100 mg Documented by: Rosuvastatin Calcium (Crestor) 10 mg PO BEDTIME [facility] Last Admin: 03/09/20 20:33 Dose: 10 mg Documented by: Warfarin Sodium (Pharmacy To Dose - Warfarin) 1 dose .XX ASDIRECTED PRN PRN Reason: RX TO DOSE WARFARIN Warfarin Sodium (Coumadin Sliding Scale) 0 each PO QPM [facility] Stop: 03/10/20 18:01 Discontinued Medications Acetaminophen (Tylenol) 975 mg PO NOW ONE Stop: 03/06/20 13:25 Last Admin: 03/06/20 13:32 Dose: 975 mg Documented by: Acetaminophen (Tylenol) Confirm Administered Dose 975 mg .ROUTE .STK-MED ONE Stop: 03/06/20 13:27 Last Admin: 03/06/20 13:32 Dose: Not Given Documented by: Enoxaparin Sodium (Lovenox) 30 mg SUBCUT Q12H [facility] Last Admin: 03/07/20 14:13 Dose: Not Given Documented by: Furosemide (Lasix) 20 mg IVPUSH NOW ONE Stop: 03/07/20 10:01 Last Admin: 03/07/20 11:01 Dose: 20 mg Documented by: Remdesivir 200 mg/ Sodium (Chloride) 250 mls @ 250 mls/hr IV ONETIME ONE Stop: 03/07/20 04:01 Last Admin: 03/07/20 03:45 Dose: 250 mls/hr Documented by: Azithromycin 500 mg/ Sodium (Chloride) 250 mls @ 250 mls/hr IV Q24H [facility] Stop: 03/09/20 11:29 Last Admin: 03/09/20 11:10 Dose: 250 mls/hr Documented by: Magnesium Sulfate (Magnesium Sulfate In Water Premix) 2 gm in 50 mls @ 25 mls/hr IV ONETIME ONE Stop: 03/07/20 13:59 Last Admin: 03/07/20 11:01 Dose: 25 mls/hr Documented by: Magnesium Hydroxide (Milk Of Magnesia) 30 ml PO ONETIME ONE Stop: 03/08/20 06:01 Last Admin: 03/08/20 05:37 Dose: Not Given Documented by: Potassium Chloride (Potassium Chloride Solution) 40 meq PO ONETIME ONE Stop: 03/06/20 16:48 Last Admin: 03/07/20 02:57 Dose: Not Given Documented by: Potassium Chloride (Klor-Con M20) Confirm Administered Dose 40 meq .ROUTE .STK- MED ONE Stop: 03/06/20 17:06 Last Admin: 03/06/20 17:09 Dose: Not Given Documented by: Potassium Chloride (Klor-Con M20) 40 meq PO ONETIME ONE Stop: 03/06/20 17:09 Last Admin: 03/06/20 17:10 Dose: 40 meq Documented by: Potassium Chloride (Klor-Con M20) 20 meq PO ONETIME ONE Stop: 03/06/20 18:25 Last Admin: 03/06/20 18:42 Dose: 20 meq Documented by: Potassium Chloride (Klor-Con M20) 20 meq PO ONETIME ONE Stop: 03/07/20 10:01 Last Admin: 03/07/20 12:00 Dose: 20 meq Documented by: Potassium Chloride (Klor-Con M20) 40 meq PO ONETIME ONE Stop: 03/08/20 09:01 Last Admin: 03/08/20 09:08 Dose: 40 meq Documented by: Warfarin Sodium (Coumadin) 2 mg PO QPM [facility] Stop: 03/07/20 18:01 Last Admin: 03/07/20 17:39 Dose: 2 mg Documented by: Warfarin Sodium (Coumadin Sliding Scale) 0 each PO QPM [facility] Stop: 03/08/20 18:01 Last Admin: 03/08/20 18:09 Dose: Not Given Documented by: Warfarin Sodium (Coumadin) 3 mg PO QPM [facility] Stop: 03/09/20 18:01 Last Admin: 03/09/20 18:13 Dose: 3 mg Documented by: - Exam Quality Assessment: DVT Prophylaxis (Patient takes Coumadinpharmacy is dosing). No: Supplemental Oxygen (Patient is on room air.) General: Alert, Cooperative, No Acute Distress. No: Oriented (Oriented to name only) HEENT: Pupils Equal, Pupils Reactive, Mucous Membr. Moist/[place] Neck: Supple, Trachea Midline. No: Lymphadenopathy Lungs: Decreased Breath Sounds, Crackles (Bilateral bases) Cardiovascular: Regular Rate, Irregular Rhythm GI/Abdominal Exam: Normal Bowel Sounds, Soft, Non-Tender, No Distention (Male) Exam: Deferred Back Exam: Normal Inspection, Full Range of Motion Extremities: Normal Inspection, Normal Range of Motion, Non-Tender, No Pedal Edema, Normal Capillary Refill Peripheral Pulses: 2+: Radial (L), Radial (R), Dorsalis Pedis (L), Dorsalis Pedis (R) Skin: Warm, Dry, Intact Neurological: No New Focal Deficit Psy/Mental Status: Alert, Normal Affect, Normal Mood Sepsis Event Note - Evaluation Sepsis Screening Result: No Definite Risk - Focused Exam Vital Signs: Vital Signs Temp Pulse Pulse Resp BP Pulse Ox 03/10/20 11:37 98.2 F 65 20 126/103 H 91 L 03/10/20 09:04 67 125/78 03/10/20 09:03 67 125/78 03/10/20 09:01 67 03/10/20 07:46 98.2 F 72 22 H 125/78 95 03/10/20 04:03 98.8 F 45 L 16 142/88 H 87 L 03/10/20 04:00 68 - Problem List & Annotations (1) COVID-19 SNOMED Code(s): 210434097 Code(s): U07.1 - COVID-19 Status: Acute Priority: High Current Visit: Yes (2) Congestive heart failure SNOMED Code(s): 65953237 Code(s): I50.9 - HEART FAILURE, UNSPECIFIED Status: Chronic Priority: High Current Visit: Yes Qualifiers: Heart failure type: unspecified Heart failure chronicity: unspecified Qualified Code(s): I50.9 - Heart failure, unspecified (3) Hypokalemia SNOMED Code(s): 92049119 Code(s): E87.6 - HYPOKALEMIA Status: Acute Priority: High Current Visit: Yes (4) Weakness SNOMED Code(s): 73325499 Code(s): R53.1 - WEAKNESS Status: Acute Priority: High Current Visit: Yes (5) Atrial fibrillation SNOMED Code(s): 11464928 Code(s): I48.91 - UNSPECIFIED ATRIAL FIBRILLATION Status: Chronic Priority: Medium Current Visit: Yes Qualifiers: Atrial fibrillation type: unspecified Qualified Code(s): I48.91 - Unspecified atrial fibrillation (6) Chronic anticoagulation SNOMED Code(s): 893593608 Code(s): Z79.01 - BURIAL NEEDS SALESPERSON (CURRENT) USE OF ANTICOAGULANTS Status: Chronic Priority: Medium Current Visit: No (7) Pneumonia due to 2019 novel coronavirus SNOMED Code(s): 826659438837956835 Code(s): U07.1 - COVID-19; J12.89 - OTHER VIRAL PNEUMONIA Status: Acute Priority: High Current Visit: Yes - Problem List Review Problem List Initiated/Reviewed/Updated: Yes - My Orders Last 24 Hours: My Active Orders 03/09/20 12:30 Blood Glucose Check, Bedside [RC] QIDACANDBED 03/09/20 Dinner Mechanical Soft Diet [DIET] Insulin Lispro [HumaLOG] See Protocol SUBCUT QIDACANDBED 03/10/20 08:00 Furosemide [Lasix] 20 mg PO MOTH 03/10/20 18:00 Warfarin Sliding Scale [Coumadin Sliding Scale] 0 each PO QPM 03/11/20 05:11 CBC WITH AUTO DIFF [HEME] DAILY COMPREHENSIVE METABOLIC PN,CMP [CHEM] DAILY CRP [C-REACTIVE PROTEIN] [CHEM] DAILY D-DIMER QUANTITATIVE [COAG] DAILY INR,PT,PROTHROMBIN TIME [COAG] AM MAGNESIUM [CHEM] DAILY 03/12/20 05:11 CBC WITH AUTO DIFF [HEME] DAILY COMPREHENSIVE METABOLIC PN,CMP [CHEM] DAILY CRP [C-REACTIVE PROTEIN] [CHEM] DAILY D-DIMER QUANTITATIVE [COAG] DAILY INR,PT,PROTHROMBIN TIME [COAG] AM MAGNESIUM [CHEM] DAILY 03/13/20 05:11 INR,PT,PROTHROMBIN TIME [COAG] AM 03/14/20 05:11 INR,PT,PROTHROMBIN TIME [COAG] AM - Assessment Assessment:: 03/08/20 * Patient is much more alert today, however he remains confused and is oriented to self only. * Continues on 3 L of oxygen * Labs reveal: D-dimer 1.55, potassium 3.6, C-reactive protein 17.9. * Chest x-ray reveals: New left lower lobe infiltrate indicating worsened pneumonia. There appears to be increased right costophrenic angle blunting which may reflect increased atelectasis. Otherwise, diffuse right upper and right lower lobe infiltrates are unchanged. * Rocephin and Zithromax for pneumonia. * Remdesivir and dexamethasone for Covid * Coumadin for DVT prophylaxis * Incentive spirometer and flutter valve every hour while awake. * Mass/hernia to left groin. 03/09/20 * Remains confused oriented to self only. On morning rounds he told me that he has not eaten supper yet. * On 2-1/2 L of oxygen per nasal cannula. * Day 3 of Zithromax and Rocephin. * Day 3 of remdesivir and dexamethasone. * Coumadin for DVT prophylaxis * Ultrasound of the left groin mass/lump: Palpable lump in the left groin contains fat and bowel and compromises a hernia measuring 5.8 x 4.7 x 2.4 cm. Bowel containing left groin hernia as above. No acute abnormality. * Labs reveal: D-dimer 1.56, potassium 4.1, BUN 28, creatinine 0.9, GFR greater than 60, C-reactive protein 10.1, procalcitonin that was drawn on 1016 less than 0.05. 03/10/20 * Is much more alert today as he is sitting up in the chair feeding himself breakfast. He is however still confused oriented to name only. * He is now on room air. * Day 4 of Rocephin * Day 4 of remdesivir and dexamethasone. * Coumadin for DVT prophylaxis * 1 view chest x-ray from 03/10/20: 1. Resolved acute pulmonary edema. 2. Decreased atelectasis but with persistent right upper and bilateral lower lobe opacification likely reflecting continued pneumonia. * Labs reveal: D-dimer 1.68, potassium 3.8, BUN 25, creatinine 0.8, GFR greater than 60, blood glucose range 141-320, C-reactive protein 5.8 * Patient was started on low-dose sliding scale insulin with 4 times daily Accu- Cheks yesterday. I suspect blood pressure elevation is due to the dexamethas one and now that patient's appetite has returned. Patient is currently on a regular mechanical soft diet with Ensure supplements. - Plan Plan:: * 89-year-old male with a fairly acute onset of weakness and confusion due to Covid. * Brought to the ED by family as they are not able to care for him due to the rapid decline in his health due to Covid. * Vital signs in the ED reveal a temp of 36.3 Celsius, pulse 65 respiratory rate 20, blood pressure 141/81, pulse ox 92% on room air. * Labs in the ED revealed WBC 5.17, potassium 3.1, BUN 17 creatinine 1.1, GFR g reater than 60, troponin less than 0.017, BNP 4928, positive for Covid. * Chest x-ray reveals faint groundglass appearance of infiltrates in both lungs. * Family reveals over the course of the last couple of days that patient has also had difficulty swallowing his medications. PLAN: COVID-19,Weakness, Pneumonia * Admit patient to the [facility] floor with continuous pulse ox and telemetry. * Start remdesivir and dexamethasone treatment. * Rocephin 2 g IV daily x5 days, Zithromax 500 mg daily x3 days. * Respiratory therapy consult to titrate oxygen to maintain sats above 90%. * PT OT to eval and treat * Speech therapy to evaluate due to difficulty swallowing pills. * Incentive spirometer and flutter valve. Congestive heart failure, Atrial fibrillation, Chronic anticoagulation * Lasix 20 mg IV today * Repeat chest x-ray in the a.m. * Pharmacy to consult regarding Coumadin dosing Hypokalemia * Patient was given 60 mg oral potassium in the emergency department * Check electrolytes in the a.m. Coumadin for DVT prophylaxis Patient is a DNR/DNI. Length of stay greater than 96 hours due to the standard 5-day treatment for Covid. public services librarian to assist with discharge planning. 03/08/20 * Continue remdesivir and dexamethasone * Continue Rocephin and Zithromax * Respiratory care to continue titrating oxygen and assisting patient with incentive spirometer and flutter valve * PT and OT eval and treat * Potassium 40 mEq p.o. given today. * Ultrasound to hernia to left groin * Swallowing evaluation unable to be completed at this time by speech therapy as speech therapist does not see Covid patients. Nursing staff has been feeding the patient all meals with soft foods and a straw for beverages and he seems to be tolerating that. * Repeat labs in the a.m. Coumadin for DVT prophylaxis. Patient is a DNR/DNI. Length of stay likely greater than 96 hours due to the standard treatment of Covid. 03/09/20 * Continue remdesivir and dexamethasone * Continue Rocephin and Zithromax * Continue to titrate oxygen to room air. * PT and OT * Nursing staff to continue feeding the patient mechanical soft diet. * Will not draw labs tomorrow Coumadin for DVT prophylaxis Patient is a DNR/DNI Length of stay will be greater than 96 hours due to the standard treatment of Covid. 03/10/20 * Continue remdesivir and dexamethasone * Continue Rocephin * I spoke with the dietitian regarding the patient's blood sugars and we are going to change him to mechanical soft diabetic diet and change his protein supplements to a lower calorie version. See dietitian notes. At this time, I will not increase his sliding scale insulin dose. I will reevaluate in the morning. * Continue Coumadin for DVT prophylaxispharmacy is dosing. Patient also is wearing DERECK stockings. * Patient is a DNR/DNI * PT and OT to to continue evaluating and treating the patient.
[2020-03-10] MEDS ORDERED: Warfarin Sliding Scale PO SCH (18:00)
[2020-03-10] MEDS: Rosuvastatin 10 MG Tab PO SCH (21:22)
[2020-03-11] MEDS: REMDESIVIR 100 MG in Sodium Chloride 0.9% 100 ML IV SCH (05:55)
[2020-03-11] MEDS: Insulin Lispro 100 Units/ML 3 ML Vial SUBCUT SCH ×4 (06:26→22:00)
[2020-03-11] MEDS: Gabapentin 100 MG Cap PO SCH (08:49)
[2020-03-11] MEDS: Metoprolol Succinate 50 MG Tab.ER PO SCH ×3 (08:49→21:59)
[2020-03-11] MEDS: Furosemide 20 MG Tab PO SCH (08:50)
[2020-03-11] MEDS: Dexamethasone 4 MG Tab PO SCH (08:52)
[2020-03-11] MEDS: Diltiazem 120 MG Cap.CD PO SCH (08:54)
[2020-03-11] MEDS: Digoxin 125 MCG Tab PO SCH ×3 (08:54→13:36)
[2020-03-11] MEDS: cefTRIAXone 2 GM in Sodium Chloride 0.9% 100 ML IV SCH (10:43)
--- NOTE | 2020-03-11 13:39 | PCM.PN ---
- General Info Date of Service: 03/11/20 Admission Dx/Problem (Free Text): Admission Diagnosis/Problem Admission Diagnosis/Problem Congestive heart failure Subjective Update: Doing a little worse today. Patient seems more lethargic. Required O2 overnight. Functional Status: Reports: Pain Controlled, Tolerating Diet, Ambulating (With physical therapy), Urinating (Incontinent), Incentive Spirometry - Review of Systems General: Reports: Weakness HEENT: Reports: No Symptoms Pulmonary: Reports: No Symptoms Cardiovascular: Reports: No Symptoms Gastrointestinal: Reports: No Symptoms Genitourinary: Reports: Incontinence Musculoskeletal: Reports: No Symptoms Skin: Reports: No Symptoms Neurological: Reports: Confusion Psychiatric: Reports: Confusion - Patient Data Vitals - Most Recent: Last Vital Signs Temp 97.3 F 03/11/20 11:24 Pulse 55 L 03/11/20 11:24 Resp 15 03/11/20 11:24 BP 140/72 03/11/20 11:24 Pulse Ox 92 L 03/11/20 11:24 Weight - Most Recent: 176 lb 8 oz I&O - Last 24 Hours: Intake & Output 03/10/20 03/11/20 03/11/20 22:59 06:59 14:59 Intake Total 200 200 360 Balance 200 200 360 Lab Results Last 24 Hours: Laboratory Results - last 24 hr 03/10/20 03/10/20 03/11/20 Range/Units 17:09 22:00 05:52 WBC (4.23-9.07) K/mm3 RBC (4.63-6.08) M/mm3 Hgb (13.7-17.5) gm/dl Hct (40.1-51.0) % MCV (79.0-92.2) fl MCH (25.7-32.2) pg MCHC (32.2-35.5) g/dl RDW Std Deviation (35.1-43.9) fL Plt Count (163-337) K/mm3 MPV (9.4-12.3) fl Neut % (Auto) (34.0-67.9) % Lymph % (Auto) (21.8-53.1) % [place] % (Auto) (5.3-12.2) % Eos % (Auto) (0.8-7.0) Baso % (Auto) (0.1-1.2) % Neut # (Auto) (1.78-5.38) K/mm3 Lymph # (Auto) (1.32-3.57) K/mm3 [place] # (Auto) (0.30-0.82) K/mm3 Eos # (Auto) (0.04-0.54) K/mm3 Baso # (Auto) (0.01-0.08) K/mm3 Manual Slide Review PT (9.7-12.0) SECONDS INR D-Dimer, Quantitative (0.19-0.50) mg/L Sodium (136-145) mEq/L Potassium (3.5-5.1) mEq/L Chloride (98-107) mEq/L Carbon Dioxide (21-32) mEq/L Anion Gap (5-15) BUN (7-18) mg/dL Creatinine (0.7-1.3) mg/dL Est Cr Clr Drug Dosing mL/min Estimated GFR (MDRD) (>60) mL/min BUN/Creatinine Ratio (14-18) Glucose (83-115) mg/dL POC Glucose 236 H 179 H 134 H (83-110) mg/dL Calcium (8.5-10.1) mg/dL Magnesium (1.8-2.4) mg/dl Total Bilirubin (0.2-1.0) mg/dL AST (15-37) U/L ALT (16-63) U/L Alkaline Phosphatase (46-116) U/L C-Reactive Protein (<1.0) mg/dL Total Protein (6.4-8.2) g/dl Albumin (3.4-5.0) g/dl Globulin gm/dL Albumin/Globulin Ratio (1-2) 03/11/20 03/11/20 03/11/20 Range/Units 05:53 05:53 05:53 WBC 8.30 (4.23-9.07) K/mm3 RBC 4.18 L (4.63-6.08) M/mm3 Hgb 12.0 L (13.7-17.5) gm/dl Hct 36.9 L (40.1-51.0) % MCV 88.3 (79.0-92.2) fl MCH 28.7 (25.7-32.2) pg MCHC 32.5 (32.2-35.5) g/dl RDW Std Deviation 43.9 (35.1-43.9) fL Plt Count 282 (163-337) K/mm3 MPV 10.7 (9.4-12.3) fl Neut % (Auto) 85.7 H (34.0-67.9) % Lymph % (Auto) 6.6 L (21.8-53.1) % [place] % (Auto) 7.1 (5.3-12.2) % Eos % (Auto) 0 L (0.8-7.0) Baso % (Auto) 0.1 (0.1-1.2) % Neut # (Auto) 7.11 H (1.78-5.38) K/mm3 Lymph # (Auto) 0.55 L (1.32-3.57) K/mm3 [place] # (Auto) 0.59 (0.30-0.82) K/mm3 Eos # (Auto) 0.00 L (0.04-0.54) K/mm3 Baso # (Auto) 0.01 (0.01-0.08) K/mm3 Manual Slide Review Abnormal smear PT 34.0 H (9.7-12.0) SECONDS INR 3.25 D-Dimer, Quantitative 1.62 H (0.19-0.50) mg/L Sodium 134 L (136-145) mEq/L Potassium 4.3 (3.5-5.1) mEq/L Chloride 98 (98-107) mEq/L Carbon Dioxide 30 (21-32) mEq/L Anion Gap 10.3 (5-15) BUN 25 H (7-18) mg/dL Creatinine 0.9 (0.7-1.3) mg/dL Est Cr Clr Drug Dosing 63.47 mL/min Estimated GFR (MDRD) > 60 (>60) mL/min BUN/Creatinine Ratio 27.8 H (14-18) Glucose 138 H (83-115) mg/dL POC Glucose (83-110) mg/dL Calcium 8.3 L (8.5-10.1) mg/dL Magnesium 2.0 (1.8-2.4) mg/dl Total Bilirubin 1.1 H (0.2-1.0) mg/dL AST 36 (15-37) U/L ALT 72 H (16-63) U/L Alkaline Phosphatase 72 (46-116) U/L C-Reactive Protein 4.1 H* (<1.0) mg/dL Total Protein 6.7 (6.4-8.2) g/dl Albumin 2.8 L (3.4-5.0) g/dl Globulin 3.9 gm/dL Albumin/Globulin Ratio 0.7 L (1-2) 1120/20 Range/Units 11:22 WBC (4.23-9.07) K/mm3 RBC (4.63-6.08) M/mm3 Hgb (13.7-17.5) gm/dl Hct (40.1-51.0) % MCV (79.0-92.2) fl MCH (25.7-32.2) pg MCHC (32.2-35.5) g/dl RDW Std Deviation (35.1-43.9) fL Plt Count (163-337) K/mm3 MPV (9.4-12.3) fl Neut % (Auto) (34.0-67.9) % Lymph % (Auto) (21.8-53.1) % [place] % (Auto) (5.3-12.2) % Eos % (Auto) (0.8-7.0) Baso % (Auto) (0.1-1.2) % Neut # (Auto) (1.78-5.38) K/mm3 Lymph # (Auto) (1.32-3.57) K/mm3 [place] # (Auto) (0.30-0.82) K/mm3 Eos # (Auto) (0.04-0.54) K/mm3 Baso # (Auto) (0.01-0.08) K/mm3 Manual Slide Review PT (9.7-12.0) SECONDS INR D-Dimer, Quantitative (0.19-0.50) mg/L Sodium (136-145) mEq/L Potassium (3.5-5.1) mEq/L Chloride (98-107) mEq/L Carbon Dioxide (21-32) mEq/L Anion Gap (5-15) BUN (7-18) mg/dL Creatinine (0.7-1.3) mg/dL Est Cr Clr Drug Dosing mL/min Estimated GFR (MDRD) (>60) mL/min BUN/Creatinine Ratio (14-18) Glucose (83-115) mg/dL POC Glucose 165 H (83-110) mg/dL Calcium (8.5-10.1) mg/dL Magnesium (1.8-2.4) mg/dl Total Bilirubin (0.2-1.0) mg/dL AST (15-37) U/L ALT (16-63) U/L Alkaline Phosphatase (46-116) U/L C-Reactive Protein (<1.0) mg/dL Total Protein (6.4-8.2) g/dl Albumin (3.4-5.0) g/dl Globulin gm/dL Albumin/Globulin Ratio (1-2) Med Orders - Current: Current Medications Acetaminophen (Tylenol) 650 mg PO Q4H PRN PRN Reason: Pain Dexamethasone (Dexamethasone) 6 mg PO DAILY [facility] Stop: 03/16/20 09:01 Last Admin: 03/11/20 08:52 Dose: 6 mg Documented by: Digoxin (Lanoxin) 125 mcg PO DAILY [facility] Last Admin: 03/11/20 08:54 Dose: Not Given Documented by: Diltiazem HCl (Cardizem Cd) 120 mg PO DAILY [facility] Last Admin: 03/11/20 08:54 Dose: Not Given Documented by: Furosemide (Lasix) 10 mg PO SUTUWEFRSA [facility] Last Admin: 03/11/20 08:50 Dose: 10 mg Documented by: Furosemide (Lasix) 20 mg PO MOTH [facility] Last Admin: 03/10/20 09:08 Dose: 20 mg Documented by: Gabapentin (Neurontin) 100 mg PO DAILY [facility] Last Admin: 03/11/20 08:49 Dose: 100 mg Documented by: Insulin Human Lispro (Humalog) 0 unit SUBCUT QIDACANDBED [facility]; Protocol Last Admin: 03/11/20 13:14 Dose: 1 units Documented by: Metoprolol Succinate (Toprol Xl) 100 mg PO BID [facility] Last Admin: 03/11/20 10:43 Dose: 100 mg Documented by: Rosuvastatin Calcium (Crestor) 10 mg PO BEDTIME [facility] Last Admin: 03/10/20 21:22 Dose: 10 mg Documented by: Warfarin Sodium (Pharmacy To Dose - Warfarin) 1 dose .XX ASDIRECTED PRN PRN Reason: RX TO DOSE WARFARIN Discontinued Medications Acetaminophen (Tylenol) 975 mg PO NOW ONE Stop: 03/06/20 13:25 Last Admin: 03/06/20 13:32 Dose: 975 mg Documented by: Acetaminophen (Tylenol) Confirm Administered Dose 975 mg .ROUTE .STK-MED ONE Stop: 03/06/20 13:27 Last Admin: 03/06/20 13:32 Dose: Not Given Documented by: Enoxaparin Sodium (Lovenox) 30 mg SUBCUT Q12H [facility] Last Admin: 03/07/20 14:13 Dose: Not Given Documented by: Furosemide (Lasix) 20 mg IVPUSH NOW ONE Stop: 03/07/20 10:01 Last Admin: 03/07/20 11:01 Dose: 20 mg Documented by: Remdesivir 200 mg/ Sodium (Chloride) 250 mls @ 250 mls/hr IV ONETIME ONE Stop: 03/07/20 04:01 Last Admin: 03/07/20 03:45 Dose: 250 mls/hr Documented by: Remdesivir 100 mg/ Sodium (Chloride) 100 mls @ 100 mls/hr IV Q24H [facility] Stop: 03/11/20 05:59 Last Admin: 03/11/20 05:55 Dose: 100 mls/hr Documented by: Ceftriaxone Sodium 2 gm/ (Sodium Chloride) 100 mls @ 200 mls/hr IV Q24H [facility] Stop: 03/11/20 10:29 Last Admin: 03/11/20 10:43 Dose: 200 mls/hr Documented by: Azithromycin 500 mg/ Sodium (Chloride) 250 mls @ 250 mls/hr IV Q24H [facility] Stop: 03/09/20 11:29 Last Admin: 03/09/20 11:10 Dose: 250 mls/hr Documented by: Magnesium Sulfate (Magnesium Sulfate In Water Premix) 2 gm in 50 mls @ 25 mls/hr IV ONETIME ONE Stop: 03/07/20 13:59 Last Admin: 03/07/20 11:01 Dose: 25 mls/hr Documented by: Magnesium Hydroxide (Milk Of Magnesia) 30 ml PO ONETIME ONE Stop: 03/08/20 06:01 Last Admin: 03/08/20 05:37 Dose: Not Given Documented by: Potassium Chloride (Potassium Chloride Solution) 40 meq PO ONETIME ONE Stop: 03/06/20 16:48 Last Admin: 03/07/20 02:57 Dose: Not Given Documented by: Potassium Chloride (Klor-Con M20) Confirm Administered Dose 40 meq .ROUTE .STK- MED ONE Stop: 03/06/20 17:06 Last Admin: 03/06/20 17:09 Dose: Not Given Documented by: Potassium Chloride (Klor-Con M20) 40 meq PO ONETIME ONE Stop: 03/06/20 17:09 Last Admin: 03/06/20 17:10 Dose: 40 meq Documented by: Potassium Chloride (Klor-Con M20) 20 meq PO ONETIME ONE Stop: 03/06/20 18:25 Last Admin: 03/06/20 18:42 Dose: 20 meq Documented by: Potassium Chloride (Klor-Con M20) 20 meq PO ONETIME ONE Stop: 03/07/20 10:01 Last Admin: 03/07/20 12:00 Dose: 20 meq Documented by: Potassium Chloride (Klor-Con M20) 40 meq PO ONETIME ONE Stop: 03/08/20 09:01 Last Admin: 03/08/20 09:08 Dose: 40 meq Documented by: Warfarin Sodium (Coumadin) 2 mg PO QPM [facility] Stop: 03/07/20 18:01 Last Admin: 03/07/20 17:39 Dose: 2 mg Documented by: Warfarin Sodium (Coumadin Sliding Scale) 0 each PO QPM [facility] Stop: 03/08/20 18:01 Last Admin: 03/08/20 18:09 Dose: Not Given Documented by: Warfarin Sodium (Coumadin) 3 mg PO QPM [facility] Stop: 03/09/20 18:01 Last Admin: 03/09/20 18:13 Dose: 3 mg Documented by: Warfarin Sodium (Coumadin Sliding Scale) 0 each PO QPM [facility] Stop: 03/10/20 18:01 Last Admin: 03/10/20 18:09 Dose: Not Given Documented by: - Exam Quality Assessment: Supplemental Oxygen (4 L per nasal cannula), DVT Prophylaxis (Coumadin) General: Alert, Cooperative. No: Oriented HEENT: Pupils Equal, Pupils Reactive, Mucous Membr. Moist/[place] Neck: Supple, Trachea Midline. No: Lymphadenopathy Lungs: Normal Respiratory Effort, Decreased Breath Sounds Cardiovascular: Regular Rate, Irregular Rhythm, Bradycardia GI/Abdominal Exam: Normal Bowel Sounds, Soft, Non-Tender, No Distention (Male) Exam: Deferred Back Exam: Normal Inspection, Full Range of Motion Extremities: Normal Inspection, Normal Range of Motion, Non-Tender, No Pedal Edema, Normal Capillary Refill Peripheral Pulses: 2+: Radial (L), Radial (R), Dorsalis Pedis (L), Dorsalis Pedis (R) Skin: Warm, Dry, Intact Neurological: No New Focal Deficit Psy/Mental Status: Alert, Normal Affect, Normal Mood Sepsis Event Note - Evaluation Sepsis Screening Result: No Definite Risk - Focused Exam Vital Signs: Vital Signs Temp Pulse Resp BP Pulse Ox Pulse Ox 03/11/20 11:24 97.3 F 55 L 15 140/72 92 L 03/11/20 10:43 63 117/59 L 03/11/20 10:38 117/59 L 03/11/20 09:01 53 L 95 03/11/20 08:25 97.5 F 61 16 131/77 94 L 03/11/20 05:50 99 03/11/20 04:29 47 L 20 115/70 93 L - Problem List & Annotations (1) COVID-19 SNOMED Code(s): 983312958 Code(s): U07.1 - COVID-19 Status: Acute Priority: High Current Visit: Yes (2) Congestive heart failure SNOMED Code(s): 50167403 Code(s): I50.9 - HEART FAILURE, UNSPECIFIED Status: Chronic Priority: High Current Visit: Yes Qualifiers: Heart failure type: unspecified Heart failure chronicity: unspecified Qualified Code(s): I50.9 - Heart failure, unspecified (3) Hypokalemia SNOMED Code(s): 52196258 Code(s): E87.6 - HYPOKALEMIA Status: Acute Priority: High Current Visit: Yes (4) Weakness SNOMED Code(s): 01952962 Code(s): R53.1 - WEAKNESS Status: Acute Priority: High Current Visit: Yes (5) Atrial fibrillation SNOMED Code(s): 95674366 Code(s): I48.91 - UNSPECIFIED ATRIAL FIBRILLATION Status: Chronic Priority: Medium Current Visit: Yes Qualifiers: Atrial fibrillation type: unspecified Qualified Code(s): I48.91 - Unspecified atrial fibrillation (6) Chronic anticoagulation SNOMED Code(s): 618784698 Code(s): 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 ANTICOAGULANTS Status: Chronic Priority: Medium Current Visit: No (7) Pneumonia due to 2019 novel coronavirus SNOMED Code(s): 510324741795009017 Code(s): U07.1 - COVID-19; J12.89 - OTHER VIRAL PNEUMONIA Status: Acute Priority: High Current Visit: Yes - Problem List Review Problem List Initiated/Reviewed/Updated: Yes - My Orders Last 24 Hours: My Active Orders 03/10/20 Dinner Consistent Carbohydrate Diet [DIET] 03/12/20 05:11 CBC WITH AUTO DIFF [HEME] DAILY COMPREHENSIVE METABOLIC PN,CMP [CHEM] DAILY CRP [C-REACTIVE PROTEIN] [CHEM] DAILY D-DIMER QUANTITATIVE [COAG] DAILY INR,PT,PROTHROMBIN TIME [COAG] AM MAGNESIUM [CHEM] DAILY 03/13/20 05:11 INR,PT,PROTHROMBIN TIME [COAG] AM 03/14/20 05:11 INR,PT,PROTHROMBIN TIME [COAG] AM - Assessment Assessment:: 03/08/20 * Patient is much more alert today, however he remains confused and is oriented to self only. * Continues on 3 L of oxygen * Labs reveal: D-dimer 1.55, potassium 3.6, C-reactive protein 17.9. * Chest x-ray reveals: New left lower lobe infiltrate indicating worsened pneumonia. There appears to be increased right costophrenic angle blunting which may reflect increased atelectasis. Otherwise, diffuse right upper and right lower lobe infiltrates are unchanged. * Rocephin and Zithromax for pneumonia. * Remdesivir and dexamethasone for Covid * Coumadin for DVT prophylaxis * Incentive spirometer and flutter valve every hour while awake. * Mass/hernia to left groin. 03/09/20 * Remains confused oriented to self only. On morning rounds he told me that he has not eaten supper yet. * On 2-1/2 L of oxygen per nasal cannula. * Day 3 of Zithromax and Rocephin. * Day 3 of remdesivir and dexamethasone. * Coumadin for DVT prophylaxis * Ultrasound of the left groin mass/lump: Palpable lump in the left groin contains fat and bowel and compromises a hernia measuring 5.8 x 4.7 x 2.4 cm. Bowel containing left groin hernia as above. No acute abnormality. * Labs reveal: D-dimer 1.56, potassium 4.1, BUN 28, creatinine 0.9, GFR greater than 60, C-reactive protein 10.1, procalcitonin that was drawn on 1016 less than 0.05. 03/10/20 * Is much more alert today as he is sitting up in the chair feeding himself breakfast. He is however still confused oriented to name only. * He is now on room air. * Day 4 of Rocephin * Day 4 of remdesivir and dexamethasone. * Coumadin for DVT prophylaxis * 1 view chest x-ray from 03/10/20: 1. Resolved acute pulmonary edema. 2. Decreased atelectasis but with persistent right upper and bilateral lower lobe opacification likely reflecting continued pneumonia. * Labs reveal: D-dimer 1.68, potassium 3.8, BUN 25, creatinine 0.8, GFR greater than 60, blood glucose range 141-320, C-reactive protein 5.8 * Patient was started on low-dose sliding scale insulin with 4 times daily Accu- Cheks yesterday. I suspect blood pressure elevation is due to the dexamethasone and now that patient's appetite has returned. Patient is currently on a regular mechanical soft diet with Ensure supplements. 03/11/20 * Patient is more lethargic today * Was placed back on oxygen last night; currently on 4 L per nasal cannula. * Day 5 of Rocephin * Day 5 of remdesivir and dexamethasone * Coumadin for DVT prophylaxis * Blood sugars more controlled with sliding scale insulin and consistent carbohydrate diet - Plan Plan:: * 89-year-old male with a fairly acute onset of weakness and confusion due to Covid. * Brought to the ED by family as they are not able to care for him due to the rapid decline in his health due to Covid. * Vital signs in the ED reveal a temp of 36.3 Celsius, pulse 65 respiratory rate 20, blood pressure 141/81, pulse ox 92% on room air. * Labs in the ED revealed WBC 5.17, potassium 3.1, BUN 17 creatinine 1.1, GFR g reater than 60, troponin less than 0.017, BNP 4928, positive for Covid. * Chest x-ray reveals faint groundglass appearance of infiltrates in both lungs. * Family reveals over the course of the last couple of days that patient has also had difficulty swallowing his medications. PLAN: COVID-19,Weakness, Pneumonia * Admit patient to the [facility] floor with continuous pulse ox and telemetry. * Start remdesivir and dexamethasone treatment. * Rocephin 2 g IV daily x5 days, Zithromax 500 mg daily x3 days. * Respiratory therapy consult to titrate oxygen to maintain sats above 90%. * PT OT to eval and treat * Speech therapy to evaluate due to difficulty swallowing pills. * Incentive spirometer and flutter valve. Congestive heart failure, Atrial fibrillation, Chronic anticoagulation * Lasix 20 mg IV today * Repeat chest x-ray in the a.m. * Pharmacy to consult regarding Coumadin dosing Hypokalemia * Patient was given 60 mg oral potassium in the emergency department * Check electrolytes in the a.m. Coumadin for DVT prophylaxis Patient is a DNR/DNI. Length of stay greater than 96 hours due to the standard 5-day treatment for Covid. director of business services to assist with discharge planning. 03/08/20 * Continue remdesivir and dexamethasone * Continue Rocephin and Zithromax * Respiratory care to continue titrating oxygen and assisting patient with incentive spirometer and flutter valve * PT and OT eval and treat * Potassium 40 mEq p.o. given today. * Ultrasound to hernia to left groin * Swallowing evaluation unable to be completed at this time by speech therapy as speech therapist does not see Covid patients. Nursing staff has been feeding the patient all meals with soft foods and a straw for beverages and he seems to be tolerating that. * Repeat labs in the a.m. Coumadin for DVT prophylaxis. Patient is a DNR/DNI. Length of stay likely greater than 96 hours due to the standard treatment of Covid. 03/09/20 * Continue remdesivir and dexamethasone * Continue Rocephin and Zithromax * Continue to titrate oxygen to room air. * PT and OT * Nursing staff to continue feeding the patient mechanical soft diet. * Will not draw labs tomorrow Coumadin for DVT prophylaxis Patient is a DNR/DNI Length of stay will be greater than 96 hours due to the standard treatment of Covid. 03/10/20 * Continue remdesivir and dexamethasone * Continue Rocephin * I spoke with the dietitian regarding the patient's blood sugars and we are going to change him to mechanical soft diabetic diet and change his protein supplements to a lower calorie version. See dietitian notes. At this time, I will not increase his sliding scale insulin dose. I will reevaluate in the morning. * Continue Coumadin for DVT prophylaxispharmacy is dosing. Patient also is wearing DERECK stockings. * Patient is a DNR/DNI * PT and OT to to continue evaluating and treating the patient. 03/11/20 * Continue remdesivir and dexamethasone * Continue Rocephin * Coumadin for DVT prophylaxis * Continue PT and OT * director of business services for discharge planning. Patient is to be discharged to [facility] on Saturday at 11 AM.
[2020-03-11] MEDS ORDERED: Warfarin Sliding Scale PO SCH (18:00)
[2020-03-11] MEDS: Rosuvastatin 10 MG Tab PO SCH (21:59)
[2020-03-12] MEDS: Insulin Lispro 100 Units/ML 3 ML Vial SUBCUT SCH ×4 (07:32→23:59)
--- NOTE | 2020-03-12 09:14 | PCM.PN ---
- General Info Date of Service: 03/12/20 Admission Dx/Problem (Free Text): Admission Diagnosis/Problem Admission Diagnosis/Problem Congestive heart failure Subjective Update: He was up all night but doing much better this morning. He is alert and awake and able to speak in full sentences. He actually fed himself this morning. He is still requires 2 person assist with getting up and ambulation. He denies having fever or chills. He reports some occasional dry cough. No GI/ complaints. He is on RA sating well. Functional Status: Reports: Pain Controlled - Review of Systems General: Denies: Fever, Chills Pulmonary: Reports: Cough. Denies: Shortness of Breath Cardiovascular: Denies: Chest Pain Gastrointestinal: Denies: Abdominal Pain, Nausea, Vomiting Genitourinary: Denies: Incontinence Musculoskeletal: Denies: Joint Pain Neurological: Reports: Weakness. Denies: Confusion, Dizziness, Seizure Psychiatric: Denies: Depression, Anxiety - Patient Data Vitals - Most Recent: Last Vital Signs Temp 36.8 C 03/12/20 04:05 Pulse 58 L 03/12/20 04:05 Resp 14 03/12/20 04:05 BP 144/90 H 03/12/20 04:05 Pulse Ox 92 L 03/12/20 04:05 Weight - Most Recent: 79.515 kg I&O - Last 24 Hours: Intake & Output 03/11/20 03/12/20 03/12/20 22:59 06:59 14:59 Intake Total 300 180 Balance 300 180 Lab Results Last 24 Hours: Laboratory Results - last 24 hr 03/11/20 03/11/20 03/11/20 Range/Units 05:53 11: 17:17 WBC (4.23-9.07) K/mm3 RBC (4.63-6.08) M/mm3 Hgb (13.7-17.5) gm/dl Hct (40.1-51.0) % MCV (79.0-92.2) fl MCH (25.7-32.2) pg MCHC (32.2-35.5) g/dl RDW Std Deviation (35.1-43.9) fL Plt Count (163-337) K/mm3 MPV (9.4-12.3) fl Neut % (Auto) (34.0-67.9) % Lymph % (Auto) (21.8-53.1) % Garfield % (Auto) (5.3-12.2) % Eos % (Auto) (0.8-7.0) Baso % (Auto) (0.1-1.2) % Neut # (Auto) (1.78-5.38) K/mm3 Lymph # (Auto) (1.32-3.57) K/mm3 Garfield # (Auto) (0.30-0.82) K/mm3 Eos # (Auto) (0.04-0.54) K/mm3 Baso # (Auto) (0.01-0.08) K/mm3 Manual Slide Review Abnormal smear PT (9.7-12.0) SECONDS INR D-Dimer, Quantitative (0.19-0.50) mg/L Sodium (136-145) mEq/L Potassium (3.5-5.1) mEq/L Chloride (98-107) mEq/L Carbon Dioxide (21-32) mEq/L Anion Gap (5-15) BUN (7-18) mg/dL Creatinine (0.7-1.3) mg/dL Est Cr Clr Drug Dosing mL/min Estimated GFR (MDRD) (>60) mL/min BUN/Creatinine Ratio (14-18) Glucose (83-115) mg/dL POC Glucose 165 H 253 H (83-110) mg/dL Calcium (8.5-10.1) mg/dL Magnesium (1.8-2.4) mg/dl Total Bilirubin (0.2-1.0) mg/dL AST (15-37) U/L ALT (16-63) U/L Alkaline Phosphatase (46-116) U/L C-Reactive Protein (<1.0) mg/dL Total Protein (6.4-8.2) g/dl Albumin (3.4-5.0) g/dl Globulin gm/dL Albumin/Globulin Ratio (1-2) 03/11/20 03/12/20 03/12/20 Range/Units 21:37 06:50 06:50 WBC 9.86 H (4.23-9.07) K/mm3 RBC 4.63 (4.63-6.08) M/mm3 Hgb 13.4 L (13.7-17.5) gm/dl Hct 39.8 L (40.1-51.0) % MCV 86.0 (79.0-92.2) fl MCH 28.9 (25.7-32.2) pg MCHC 33.7 (32.2-35.5) g/dl RDW Std Deviation 42.9 (35.1-43.9) fL Plt Count 297 (163-337) K/mm3 MPV 10.5 (9.4-12.3) fl Neut % (Auto) 85.0 H (34.0-67.9) % Lymph % (Auto) 6.6 L (21.8-53.1) % Garfield % (Auto) 7.6 (5.3-12.2) % Eos % (Auto) 0 L (0.8-7.0) Baso % (Auto) 0.1 (0.1-1.2) % Neut # (Auto) 8.38 H (1.78-5.38) K/mm3 Lymph # (Auto) 0.65 L (1.32-3.57) K/mm3 Garfield # (Auto) 0.75 (0.30-0.82) K/mm3 Eos # (Auto) 0.00 L (0.04-0.54) K/mm3 Baso # (Auto) 0.01 (0.01-0.08) K/mm3 Manual Slide Review PT 23.3 H D (9.7-12.0) SECONDS INR 2.21 D-Dimer, Quantitative 1.95 H (0.19-0.50) mg/L Sodium (136-145) mEq/L Potassium (3.5-5.1) mEq/L Chloride (98-107) mEq/L Carbon Dioxide (21-32) mEq/L Anion Gap (5-15) BUN (7-18) mg/dL Creatinine (0.7-1.3) mg/dL Est Cr Clr Drug Dosing mL/min Estimated GFR (MDRD) (>60) mL/min BUN/Creatinine Ratio (14-18) Glucose (83-115) mg/dL POC Glucose 190 H (83-110) mg/dL Calcium (8.5-10.1) mg/dL Magnesium (1.8-2.4) mg/dl Total Bilirubin (0.2-1.0) mg/dL AST (15-37) U/L ALT (16-63) U/L Alkaline Phosphatase (46-116) U/L C-Reactive Protein (<1.0) mg/dL Total Protein (6.4-8.2) g/dl Albumin (3.4-5.0) g/dl Globulin gm/dL Albumin/Globulin Ratio (1-2) 03/12/20 03/12/20 Range/Units 06:50 06:59 WBC (4.23-9.07) K/mm3 RBC (4.63-6.08) M/mm3 Hgb (13.7-17.5) gm/dl Hct (40.1-51.0) % MCV (79.0-92.2) fl MCH (25.7-32.2) pg MCHC (32.2-35.5) g/dl RDW Std Deviation (35.1-43.9) fL Plt Count (163-337) K/mm3 MPV (9.4-12.3) fl Neut % (Auto) (34.0-67.9) % Lymph % (Auto) (21.8-53.1) % Garfield % (Auto) (5.3-12.2) % Eos % (Auto) (0.8-7.0) Baso % (Auto) (0.1-1.2) % Neut # (Auto) (1.78-5.38) K/mm3 Lymph # (Auto) (1.32-3.57) K/mm3 Garfield # (Auto) (0.30-0.82) K/mm3 Eos # (Auto) (0.04-0.54) K/mm3 Baso # (Auto) (0.01-0.08) K/mm3 Manual Slide Review PT (9.7-12.0) SECONDS INR D-Dimer, Quantitative (0.19-0.50) mg/L Sodium 134 L (136-145) mEq/L Potassium 4.1 (3.5-5.1) mEq/L Chloride 95 L (98-107) mEq/L Carbon Dioxide 29 (21-32) mEq/L Anion Gap 14.1 (5-15) BUN 27 H (7-18) mg/dL Creatinine 0.9 (0.7-1.3) mg/dL Est Cr Clr Drug Dosing 63.47 mL/min Estimated GFR (MDRD) > 60 (>60) mL/min BUN/Creatinine Ratio 30.0 H (14-18) Glucose 150 H (83-115) mg/dL POC Glucose 131 H (83-110) mg/dL Calcium 8.7 (8.5-10.1) mg/dL Magnesium 2.0 (1.8-2.4) mg/dl Total Bilirubin 1.3 H (0.2-1.0) mg/dL AST 27 (15-37) U/L ALT 70 H (16-63) U/L Alkaline Phosphatase 95 (46-116) U/L C-Reactive Protein 3.6 H* (<1.0) mg/dL Total Protein 7.0 (6.4-8.2) g/dl Albumin 2.9 L (3.4-5.0) g/dl Globulin 4.1 gm/dL Albumin/Globulin Ratio 0.7 L (1-2) Med Orders - Current: Current Medications Acetaminophen (Tylenol) 650 mg PO Q4H PRN PRN Reason: Pain Dexamethasone (Dexamethasone) 6 mg PO DAILY [facility] Stop: 03/16/20 09:01 Last Admin: 03/11/20 08:52 Dose: 6 mg Documented by: Digoxin (Lanoxin) 125 mcg PO [facility]ILY [facility] Last Admin: 03/11/20 13:36 Dose: 125 mcg Documented by: Diltiazem HCl (Cardizem Cd) 120 mg PO [facility]ILY [facility] Last Admin: 03/11/20 08:54 Dose: Not Given Documented by: Furosemide (Lasix) 10 mg PO [facility] Last Admin: 03/11/20 08:50 Dose: 10 mg Documented by: Furosemide (Lasix) 20 mg PO MOTH [facility] Last Admin: 03/10/20 09:08 Dose: 20 mg Documented by: Gabapentin (Neurontin) 100 mg PO DAILY [facility] Last Admin: 03/11/20 08:49 Dose: 100 mg Documented by: Insulin Human Lispro (Humalog) 0 unit SUBCUT [facility]ANDBED [facility]; Protocol Last Admin: 03/12/20 07:32 Dose: Not Given Documented by: Metoprolol Succinate (Toprol Xl) 100 mg PO BID [facility] Last Admin: 03/11/20 21:59 Dose: 100 mg Documented by: Rosuvastatin Calcium (Crestor) 10 mg PO BEDTIME [facility] Last Admin: 03/11/20 21:59 Dose: 10 mg Documented by: Warfarin Sodium (Pharmacy To Dose - Warfarin) 1 dose .XX ASDIRECTED PRN PRN Reason: RX TO DOSE WARFARIN Discontinued Medications Acetaminophen (Tylenol) 975 mg PO NOW ONE Stop: 03/06/20 13:25 Last Admin: 03/06/20 13:32 Dose: 975 mg Documented by: Acetaminophen (Tylenol) Confirm Administered Dose 975 mg .ROUTE .STK-MED ONE Stop: 03/06/20 13:27 Last Admin: 03/06/20 13:32 Dose: Not Given Documented by: Enoxaparin Sodium (Lovenox) 30 mg SUBCUT Q12H [facility] Last Admin: 03/07/20 14:13 Dose: Not Given Documented by: Furosemide (Lasix) 20 mg IVPUSH NOW ONE Stop: 03/07/20 10:01 Last Admin: 03/07/20 11:01 Dose: 20 mg Documented by: Remdesivir 200 mg/ Sodium (Chloride) 250 mls @ 250 mls/hr IV ONETIME ONE Stop: 03/07/20 04:01 Last Admin: 03/07/20 03:45 Dose: 250 mls/hr Documented by: Remdesivir 100 mg/ Sodium (Chloride) 100 mls @ 100 mls/hr IV Q24H [facility] Stop: 03/11/20 05:59 Last Admin: 03/11/20 05:55 Dose: 100 mls/hr Documented by: Ceftriaxone Sodium 2 gm/ (Sodium Chloride) 100 mls @ 200 mls/hr IV Q24H [facility] Stop: 03/11/20 10:29 Last Admin: 03/11/20 10:43 Dose: 200 mls/hr Documented by: Azithromycin 500 mg/ Sodium (Chloride) 250 mls @ 250 mls/hr IV Q24H [facility] Stop: 03/09/20 11:29 Last Admin: 03/09/20 11:10 Dose: 250 mls/hr Documented by: Magnesium Sulfate (Magnesium Sulfate In Water Premix) 2 gm in 50 mls @ 25 mls/hr IV ONETIME ONE Stop: 03/07/20 13:59 Last Admin: 03/07/20 11:01 Dose: 25 mls/hr Documented by: Magnesium Hydroxide (Milk Of Magnesia) 30 ml PO ONETIME ONE Stop: 03/08/20 06:01 Last Admin: 03/08/20 05:37 Dose: Not Given Documented by: Potassium Chloride (Potassium Chloride Solution) 40 meq PO ONETIME ONE Stop: 03/06/20 16:48 Last Admin: 03/07/20 02:57 Dose: Not Given Documented by: Potassium Chloride (Klor-Con M20) Confirm Administered Dose 40 meq .ROUTE .STK- MED ONE Stop: 03/06/20 17:06 Last Admin: 03/06/20 17:09 Dose: Not Given Documented by: Potassium Chloride (Klor-Con M20) 40 meq PO ONETIME ONE Stop: 03/06/20 17:09 Last Admin: 03/06/20 17:10 Dose: 40 meq Documented by: Potassium Chloride (Klor-Con M20) 20 meq PO ONETIME ONE Stop: 03/06/20 18:25 Last Admin: 03/06/20 18:42 Dose: 20 meq Documented by: Potassium Chloride (Klor-Con M20) 20 meq PO ONETIME ONE Stop: 03/07/20 10:01 Last Admin: 03/07/20 12:00 Dose: 20 meq Documented by: Potassium Chloride (Klor-Con M20) 40 meq PO ONETIME ONE Stop: 03/08/20 09:01 Last Admin: 03/08/20 09:08 Dose: 40 meq Documented by: Warfarin Sodium (Coumadin) 2 mg PO QPM [facility] Stop: 03/07/20 18:01 Last Admin: 03/07/20 17:39 Dose: 2 mg Documented by: Warfarin Sodium (Coumadin Sliding Scale) 0 each PO QPM [facility] Stop: 03/08/20 18:01 Last Admin: 03/08/20 18:09 Dose: Not Given Documented by: Warfarin Sodium (Coumadin) 3 mg PO QPM [facility] Stop: 03/09/20 18:01 Last Admin: 03/09/20 18:13 Dose: 3 mg Documented by: Warfarin Sodium (Coumadin Sliding Scale) 0 each PO QPM [facility] Stop: 03/10/20 18:01 Last Admin: 03/10/20 18:09 Dose: Not Given Documented by: Warfarin Sodium (Coumadin Sliding Scale) 0 each PO QPM [facility] Stop: 03/11/20 18:01 Last Admin: 03/11/20 17:27 Dose: Not Given Documented by: - Exam Quality Assessment: No: Supplemental Oxygen General: Alert, Cooperative, No Acute Distress HEENT: Pupils Equal, Pupils Reactive, EOMI, Mucous Membr. Moist/[place] Neck: Supple Lungs: Normal Respiratory Effort, Decreased Breath Sounds Cardiovascular: Regular Rate, Regular Rhythm GI/Abdominal Exam: Normal Bowel Sounds, Non-Tender, No Organomegaly, No Distention, No Abnormal Bruit (Male) Exam: Deferred Back Exam: Normal Inspection, Decreased Range of Motion Extremities: Normal Inspection, Normal Range of Motion, Non-Tender, No Pedal Edema, Normal Capillary Refill Peripheral Pulses: 2+: Dorsalis Pedis (L), Dorsalis Pedis (R) Skin: Warm, Dry, Intact Neurological: No New Focal Deficit Psy/Mental Status: Alert, Normal Affect, Normal Mood Sepsis Event Note - Evaluation Sepsis Screening Result: No Definite Risk - Focused Exam Vital Signs: Vital Signs Temp Pulse Pulse Resp BP Pulse Ox 03/12/20 04:05 36.8 C 58 L 14 144/90 H 92 L 03/12/20 00:00 57 L 92 L 03/11/20 21:59 64 140/86 03/11/20 20:56 36.7 C 56 L 14 148/89 H 91 L - Problem List Review Problem List Initiated/Reviewed/Updated: Yes - My Orders Last 24 Hours: My Active Orders 03/11/20 17:56 Up With Assistance [RC] ASDIRECTED - Plan Plan:: * 89-year-old male with a fairly acute onset of weakness and confusion due to Covid. * Brought to the ED by family as they are not able to care for him due to the rapid decline in his health due to Covid. * Vital signs in the ED reveal a temp of 36.3 Celsius, pulse 65 respiratory rate 20, blood pressure 141/81, pulse ox 92% on room air. * Labs in the ED revealed WBC 5.17, potassium 3.1, BUN 17 creatinine 1.1, GFR greater than 60, troponin less than 0.017, BNP 4928, positive for Covid. * Chest x-ray reveals faint groundglass appearance of infiltrates in both lungs. * Family reveals over the course of the last couple of days that patient has also had difficulty swallowing his medications. PLAN: COVID-19,Weakness, Pneumonia * Admit patient to the [facility] floor with continuous pulse ox and telemetry. * Start remdesivir and dexamethasone treatment. * Rocephin 2 g IV daily x5 days, Zithromax 500 mg daily x3 days. * Respiratory therapy consult to titrate oxygen to maintain sats above 90%. * PT OT to eval and treat * Speech therapy to evaluate due to difficulty swallowing pills. * Incentive spirometer and flutter valve. Congestive heart failure, Atrial fibrillation, Chronic anticoagulation * Lasix 20 mg IV today * Repeat chest x-ray in the a.m. * Pharmacy to consult regarding Coumadin dosing Hypokalemia * Patient was given 60 mg oral potassium in the emergency department * Check electrolytes in the a.m. 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 Length of stay greater than 96 hours due to the standard 5-day treatment for Covid. media services director to assist with discharge planning. 03/08/20 * Continue remdesivir and dexamethasone * Continue Rocephin and Zithromax * Respiratory care to continue titrating oxygen and assisting patient with incentive spirometer and flutter valve * PT and OT eval and treat * Potassium 40 mEq p.o. given today. * Ultrasound to hernia to left groin * Swallowing evaluation unable to be completed at this time by speech therapy as speech therapist does not see Covid patients. Nursing staff has been feeding the patient all meals with soft foods and a straw for beverages and he seems to be tolerating that. * Repeat labs in the a.m. 03/09/20 * Continue remdesivir and dexamethasone * Continue Rocephin and Zithromax * Continue to titrate oxygen to room air. * PT and OT * Nursing staff to continue feeding the patient mechanical soft diet. * Will not draw labs tomorrow 03/10/20 * Continue remdesivir and dexamethasone * Continue Rocephin * I spoke with the dietitian regarding the patient's blood sugars and we are going to change him to mechanical soft diabetic diet and change his protein supplements to a lower calorie version. See dietitian notes. At this time, I will not increase his sliding scale insulin dose. I will reevaluate in the morning. * Continue Coumadin for DVT prophylaxispharmacy is dosing. Patient also is wearing DERECK stockings. * Patient is a DNR/DNI * PT and OT to to continue evaluating and treating the patient. 03/11/20 * Continue remdesivir and dexamethasone * Continue Rocephin * Coumadin for DVT prophylaxis * Continue PT and OT * media services director for discharge planning. Patient is to be discharged to [facility] on Saturday at 11 AM. 03/12/20 * Awake and alert * Continue current treatment * Encourage to use IS and FV * Ambulate with assistance * Completed remdesivir and rocephin * Still on dexamethasone day 6 * BS is much improved * Discharge pending placement to [facility]
[2020-03-12] MEDS: Dexamethasone 4 MG Tab PO SCH (09:25)
[2020-03-12] MEDS: Gabapentin 100 MG Cap PO SCH (09:26)
[2020-03-12] MEDS: Furosemide 20 MG Tab PO SCH ×2 (09:27→09:36)
[2020-03-12] MEDS: Diltiazem 120 MG Cap.CD PO SCH (09:28)
[2020-03-12] MEDS: Metoprolol Succinate 50 MG Tab.ER PO SCH ×2 (09:35→23:56)
[2020-03-12] MEDS: Digoxin 125 MCG Tab PO SCH (09:35)
[2020-03-12] MEDS: Rosuvastatin 10 MG Tab PO SCH (23:58)
[2020-03-13] MEDS: Metoprolol Succinate 50 MG Tab.ER PO SCH ×2 (09:56→21:34)
[2020-03-13] MEDS: Digoxin 125 MCG Tab PO SCH (09:56)
[2020-03-13] MEDS: Gabapentin 100 MG Cap PO SCH (09:56)
[2020-03-13] MEDS: Dexamethasone 4 MG Tab PO SCH (09:56)
[2020-03-13] MEDS: Furosemide 20 MG Tab PO SCH (09:59)
[2020-03-13] MEDS: Insulin Lispro 100 Units/ML 3 ML Vial SUBCUT SCH ×4 (10:03→21:35)
[2020-03-13] MEDS: Diltiazem 120 MG Cap.CD PO SCH (10:06)
--- NOTE | 2020-03-13 13:46 | PCM.PN ---
- General Info Date of Service: 03/13/20 Admission Dx/Problem (Free Text): Admission Diagnosis/Problem Admission Diagnosis/Problem Congestive heart failure Subjective Update: Nursing states that his heart rate has been in the 50s and as low was 40. He is on Cardizem, metoprolol, and digoxin for atrial fibrillation. Patient's appetite has been good. He is not talking much. I can only get him to say yes and then some other words that were garbled. Functional Status: Reports: Pain Controlled - Review of Systems General: Reports: Other (Unable to obtain a full review of systems secondary to dementia) - Patient Data Vitals - Most Recent: Last Vital Signs Temp 97.7 F 03/13/20 12:12 Pulse 57 L 03/13/20 12:12 Resp 17 03/13/20 12:12 BP 108/69 03/13/20 12:12 Pulse Ox 96 03/13/20 12:12 Weight - Most Recent: 172 lb 12.8 oz I&O - Last 24 Hours: Intake & Output 03/12/20 03/13/20 03/13/20 22:59 06:59 14:59 Intake Total 1560 500 60 Balance 1560 500 60 Lab Results Last 24 Hours: Laboratory Results - last 24 hr 03/12/20 03/12/20 03/13/20 Range/Units 16:50 23:45 06:35 WBC (4.23-9.07) K/mm3 RBC (4.63-6.08) M/mm3 Hgb (13.7-17.5) gm/dl Hct (40.1-51.0) % MCV (79.0-92.2) fl MCH (25.7-32.2) pg MCHC (32.2-35.5) g/dl RDW Std Deviation (35.1-43.9) fL Plt Count (163-337) K/mm3 MPV (9.4-12.3) fl Neut % (Auto) (34.0-67.9) % Lymph % (Auto) (21.8-53.1) % Crowley % (Auto) (5.3-12.2) % Eos % (Auto) (0.8-7.0) Baso % (Auto) (0.1-1.2) % Neut # (Auto) (1.78-5.38) K/mm3 Lymph # (Auto) (1.32-3.57) K/mm3 Crowley # (Auto) (0.30-0.82) K/mm3 Eos # (Auto) (0.04-0.54) K/mm3 Baso # (Auto) (0.01-0.08) K/mm3 Manual Slide Review PT 18.4 H (9.7-12.0) SECONDS INR 1.74 Sodium (136-145) mEq/L Potassium (3.5-5.1) mEq/L Chloride (98-107) mEq/L Carbon Dioxide (21-32) mEq/L Anion Gap (5-15) BUN (7-18) mg/dL Creatinine (0.7-1.3) mg/dL Est Cr Clr Drug Dosing mL/min Estimated GFR (MDRD) (>60) mL/min BUN/Creatinine Ratio (14-18) Glucose (83-115) mg/dL POC Glucose 188 H 200 H (83-110) mg/dL Calcium (8.5-10.1) mg/dL Magnesium (1.8-2.4) mg/dl C-Reactive Protein (<1.0) mg/dL 03/13/20 03/13/20 03/13/20 Range/Units 06:35 06:35 06:48 WBC 8.54 (4.23-9.07) K/mm3 RBC 4.73 (4.63-6.08) M/mm3 Hgb 13.8 (13.7-17.5) gm/dl Hct 40.5 (40.1-51.0) % MCV 85.6 (79.0-92.2) fl MCH 29.2 (25.7-32.2) pg MCHC 34.1 (32.2-35.5) g/dl RDW Std Deviation 43.0 (35.1-43.9) fL Plt Count 267 (163-337) K/mm3 MPV 10.5 (9.4-12.3) fl Neut % (Auto) 86.6 H (34.0-67.9) % Lymph % (Auto) 5.5 L (21.8-53.1) % Crowley % (Auto) 7.1 (5.3-12.2) % Eos % (Auto) 0 L (0.8-7.0) Baso % (Auto) 0.0 L (0.1-1.2) % Neut # (Auto) 7.39 H (1.78-5.38) K/mm3 Lymph # (Auto) 0.47 L (1.32-3.57) K/mm3 Crowley # (Auto) 0.61 (0.30-0.82) K/mm3 Eos # (Auto) 0.00 L (0.04-0.54) K/mm3 Baso # (Auto) 0.00 L (0.01-0.08) K/mm3 Manual Slide Review Abnormal smear PT (9.7-12.0) SECONDS INR Sodium 132 L (136-145) mEq/L Potassium 4.1 (3.5-5.1) mEq/L Chloride 96 L (98-107) mEq/L Carbon Dioxide 27 (21-32) mEq/L Anion Gap 13.1 (5-15) BUN 28 H (7-18) mg/dL Creatinine 1.0 (0.7-1.3) mg/dL Est Cr Clr Drug Dosing 57.12 mL/min Estimated GFR (MDRD) > 60 (>60) mL/min BUN/Creatinine Ratio 28.0 H (14-18) Glucose 156 H (83-115) mg/dL POC Glucose 152 H (83-110) mg/dL Calcium 8.3 L (8.5-10.1) mg/dL Magnesium 2.0 (1.8-2.4) mg/dl C-Reactive Protein 2.6 H* (<1.0) mg/dL 03/13/20 Range/Units 10:58 WBC (4.23-9.07) K/mm3 RBC (4.63-6.08) M/mm3 Hgb (13.7-17.5) gm/dl Hct (40.1-51.0) % MCV (79.0-92.2) fl MCH (25.7-32.2) pg MCHC (32.2-35.5) g/dl RDW Std Deviation (35.1-43.9) fL Plt Count (163-337) K/mm3 MPV (9.4-12.3) fl Neut % (Auto) (34.0-67.9) % Lymph % (Auto) (21.8-53.1) % Crowley % (Auto) (5.3-12.2) % Eos % (Auto) (0.8-7.0) Baso % (Auto) (0.1-1.2) % Neut # (Auto) (1.78-5.38) K/mm3 Lymph # (Auto) (1.32-3.57) K/mm3 Crowley # (Auto) (0.30-0.82) K/mm3 Eos # (Auto) (0.04-0.54) K/mm3 Baso # (Auto) (0.01-0.08) K/mm3 Manual Slide Review PT (9.7-12.0) SECONDS INR Sodium (136-145) mEq/L Potassium (3.5-5.1) mEq/L Chloride (98-107) mEq/L Carbon Dioxide (21-32) mEq/L Anion Gap (5-15) BUN (7-18) mg/dL Creatinine (0.7-1.3) mg/dL Est Cr Clr Drug Dosing mL/min Estimated GFR (MDRD) (>60) mL/min BUN/Creatinine Ratio (14-18) Glucose (83-115) mg/dL POC Glucose 208 H (83-110) mg/dL Calcium (8.5-10.1) mg/dL Magnesium (1.8-2.4) mg/dl C-Reactive Protein (<1.0) mg/dL Med Orders - Current: Current Medications Acetaminophen (Tylenol) 650 mg PO Q4H PRN PRN Reason: Pain Dexamethasone (Dexamethasone) 6 mg PO DAILY [facility] Stop: 03/16/20 09:01 Last Admin: 03/13/20 09:56 Dose: 6 mg Documented by: Digoxin (Lanoxin) 125 mcg PO DAILY [facility] Last Admin: 03/13/20 09:56 Dose: 125 mcg Documented by: Furosemide (Lasix) 10 mg PO SUTUWEFRSA [facility] Last Admin: 03/13/20 09:59 Dose: 10 mg Documented by: Furosemide (Lasix) 20 mg PO MOTH [facility] Last Admin: 03/10/20 09:08 Dose: 20 mg Documented by: Gabapentin (Neurontin) 100 mg PO DAILY [facility] Last Admin: 03/13/20 09:56 Dose: 100 mg Documented by: Insulin Human Lispro (Humalog) 0 unit SUBCUT QIDACANDBED [facility]; Protocol Last Admin: 03/13/20 12:23 Dose: 4 units Documented by: Metoprolol Succinate (Toprol Xl) 100 mg PO BID [facility] Last Admin: 03/13/20 09:56 Dose: 100 mg Documented by: Rosuvastatin Calcium (Crestor) 10 mg PO BEDTIME [facility] Last Admin: 03/12/20 23:58 Dose: 10 mg Documented by: Warfarin Sodium (Pharmacy To Dose - Warfarin) 1 dose .XX ASDIRECTED PRN PRN Reason: RX TO DOSE WARFARIN Warfarin Sodium (Coumadin) 1 mg PO QPM [facility] Stop: 03/13/20 21:00 Discontinued Medications Acetaminophen (Tylenol) 975 mg PO NOW ONE Stop: 03/06/20 13:25 Last Admin: 03/06/20 13:32 Dose: 975 mg Documented by: Acetaminophen (Tylenol) Confirm Administered Dose 975 mg .ROUTE .STK-MED ONE Stop: 03/06/20 13:27 Last Admin: 03/06/20 13:32 Dose: Not Given Documented by: Diltiazem HCl (Cardizem Cd) 120 mg PO DAILY [facility] Last Admin: 03/13/20 10:06 Dose: Not Given Documented by: Enoxaparin Sodium (Lovenox) 30 mg SUBCUT Q12H [facility] Last Admin: 03/07/20 14:13 Dose: Not Given Documented by: Furosemide (Lasix) 20 mg IVPUSH NOW ONE Stop: 03/07/20 10:01 Last Admin: 03/07/20 11:01 Dose: 20 mg Documented by: Remdesivir 200 mg/ Sodium (Chloride) 250 mls @ 250 mls/hr IV ONETIME ONE Stop: 03/07/20 04:01 Last Admin: 03/07/20 03:45 Dose: 250 mls/hr Documented by: Remdesivir 100 mg/ Sodium (Chloride) 100 mls @ 100 mls/hr IV Q24H [facility] Stop: 03/11/20 05:59 Last Admin: 03/11/20 05:55 Dose: 100 mls/hr Documented by: Ceftriaxone Sodium 2 gm/ (Sodium Chloride) 100 mls @ 200 mls/hr IV Q24H [facility] Stop: 03/11/20 10:29 Last Admin: 03/11/20 10:43 Dose: 200 mls/hr Documented by: Azithromycin 500 mg/ Sodium (Chloride) 250 mls @ 250 mls/hr IV Q24H [facility] Stop: 03/09/20 11:29 Last Admin: 03/09/20 11:10 Dose: 250 mls/hr Documented by: Magnesium Sulfate (Magnesium Sulfate In Water Premix) 2 gm in 50 mls @ 25 mls/hr IV ONETIME ONE Stop: 03/07/20 13:59 Last Admin: 03/07/20 11:01 Dose: 25 mls/hr Documented by: Magnesium Hydroxide (Milk Of Magnesia) 30 ml PO ONETIME ONE Stop: 03/08/20 06:01 Last Admin: 03/08/20 05:37 Dose: Not Given Documented by: Potassium Chloride (Potassium Chloride Solution) 40 meq PO ONETIME ONE Stop: 03/06/20 16:48 Last Admin: 03/07/20 02:57 Dose: Not Given Documented by: Potassium Chloride (Klor-Con M20) Confirm Administered Dose 40 meq .ROUTE .ST- MED ONE Stop: 03/06/20 17:06 Last Admin: 03/06/20 17:09 Dose: Not Given Documented by: Potassium Chloride (Klor-Con M20) 40 meq PO ONETIME ONE Stop: 03/06/20 17:09 Last Admin: 03/06/20 17:10 Dose: 40 meq Documented by: Potassium Chloride (Klor-Con M20) 20 meq PO ONETIME ONE Stop: 03/06/20 18:25 Last Admin: 03/06/20 18:42 Dose: 20 meq Documented by: Potassium Chloride (Klor-Con M20) 20 meq PO ONETIME ONE Stop: 03/07/20 10:01 Last Admin: 03/07/20 12:00 Dose: 20 meq Documented by: Potassium Chloride (Klor-Con M20) 40 meq PO ONETIME ONE Stop: 03/08/20 09:01 Last Admin: 03/08/20 09:08 Dose: 40 meq Documented by: Warfarin Sodium (Coumadin) 2 mg PO QPM [facility] Stop: 03/07/20 18:01 Last Admin: 03/07/20 17:39 Dose: 2 mg Documented by: Warfarin Sodium (Coumadin Sliding Scale) 0 each PO QPM [facility] Stop: 03/08/20 18:01 Last Admin: 03/08/20 18:09 Dose: Not Given Documented by: Warfarin Sodium (Coumadin) 3 mg PO QPM [facility] Stop: 03/09/20 18:01 Last Admin: 03/09/20 18:13 Dose: 3 mg Documented by: Warfarin Sodium (Coumadin Sliding Scale) 0 each PO QPM [facility] Stop: 03/10/20 18:01 Last Admin: 03/10/20 18:09 Dose: Not Given Documented by: Warfarin Sodium (Coumadin Sliding Scale) 0 each PO QPM [facility] Stop: 03/11/20 18:01 Last Admin: 03/11/20 17:27 Dose: Not Given Documented by: Warfarin Sodium (Coumadin) 1 mg PO QPM [facility] Stop: 03/12/20 21:00 Last Admin: 03/12/20 18:41 Dose: 1 mg Documented by: - Exam Quality Assessment: No: Supplemental Oxygen General: No: Alert, Oriented HEENT: Pupils Equal Neck: Supple Lungs: Clear to Auscultation, Normal Respiratory Effort Cardiovascular: Irregular Rhythm GI/Abdominal Exam: Normal Bowel Sounds, Soft, Non-Tender, No Distention Extremities: Normal Inspection, Normal Range of Motion, Non-Tender, No Pedal Edema, Normal Capillary Refill Neurological: No New Focal Deficit Psy/Mental Status: Alert, Normal Affect, Normal Mood Sepsis Event Note - Evaluation Sepsis Screening Result: No Definite Risk - Focused Exam Vital Signs: Vital Signs Temp Pulse Resp BP Pulse Ox 03/13/20 12:12 97.7 F 57 L 17 108/69 96 03/13/20 09:56 55 L 127/80 03/13/20 08:13 97.5 F 55 L 17 127/80 92 L 03/13/20 05:27 97.9 F 51 L 12 119/72 96 - Problem List & Annotations (1) COVID-19 SNOMED Code(s): 765939730 Code(s): U07.1 - COVID-19 Status: Acute Priority: High Current Visit: Yes (2) Pneumonia due to 2019 novel coronavirus SNOMED Code(s): 689277847423614357 Code(s): U07.1 - COVID-19; J12.89 - OTHER VIRAL PNEUMONIA Status: Acute Priority: High Current Visit: Yes (3) Weakness SNOMED Code(s): 83429136 Code(s): R53.1 - WEAKNESS Status: Acute Priority: High Current Visit: Yes (4) Atrial fibrillation SNOMED Code(s): 49811425 Code(s): I48.91 - UNSPECIFIED ATRIAL FIBRILLATION Status: Chronic Priority: Medium Current Visit: Yes Qualifiers: Atrial fibrillation type: unspecified Qualified Code(s): I48.91 - Unspecified atrial fibrillation (5) Congestive heart failure SNOMED Code(s): 85639547 Code(s): I50.9 - HEART FAILURE, UNSPECIFIED Status: Chronic Priority: High Current Visit: Yes Qualifiers: Heart failure type: unspecified Heart failure chronicity: unspecified Qualified Code(s): I50.9 - Heart failure, unspecified (6) CVA, Cerebrovascular accident SNOMED Code(s): 194799830 Code(s): I63.9 - CEREBRAL INFARCTION, UNSPECIFIED Status: Acute Current Visit: No (7) Dementia SNOMED Code(s): 04236802 Code(s): F03.90 - UNSPECIFIED DEMENTIA WITHOUT BEHAVIORAL DISTURBANCE Status: Chronic Priority: Medium Current Visit: No Qualifiers: Dementia type: unspecified type Dementia behavioral disturbance: without behavioral disturbance Qualified Code(s): F03.90 - Unspecified dementia without behavioral disturbance - Problem List Review Problem List Initiated/Reviewed/Updated: Yes - Assessment Assessment:: 03/08/20 * Patient is much more alert today, however he remains confused and is oriented to self only. * Continues on 3 L of oxygen * Labs reveal: D-dimer 1.55, potassium 3.6, C-reactive protein 17.9. * Chest x-ray reveals: New left lower lobe infiltrate indicating worsened pneumonia. There appears to be increased right costophrenic angle blunting which may reflect increased atelectasis. Otherwise, diffuse right upper and right lower lobe infiltrates are unchanged. * Rocephin and Zithromax for pneumonia. * Remdesivir and dexamethasone for Covid * Coumadin for DVT prophylaxis * Incentive spirometer and flutter valve every hour while awake. * Mass/hernia to left groin. 03/09/20 * Remains confused oriented to self only. On morning rounds he told me that he has not eaten supper yet. * On 2-1/2 L of oxygen per nasal cannula. * Day 3 of Zithromax and Rocephin. * Day 3 of remdesivir and dexamethasone. * Coumadin for DVT prophylaxis * Ultrasound of the left groin mass/lump: Palpable lump in the left groin contains fat and bowel and compromises a hernia measuring 5.8 x 4.7 x 2.4 cm. Bowel containing left groin hernia as above. No acute abnormality. * Labs reveal: D-dimer 1.56, potassium 4.1, BUN 28, creatinine 0.9, GFR greater than 60, C-reactive protein 10.1, procalcitonin that was drawn on 1016 less than 0.05. 03/10/20 * Is much more alert today as he is sitting up in the chair feeding himself breakfast. He is however still confused oriented to name only. * He is now on room air. * Day 4 of Rocephin * Day 4 of remdesivir and dexamethasone. * Coumadin for DVT prophylaxis * 1 view chest x-ray from 03/10/20: 1. Resolved acute pulmonary edema. 2. Decreased atelectasis but with persistent right upper and bilateral lower lobe opacification likely reflecting continued pneumonia. * Labs reveal: D-dimer 1.68, potassium 3.8, BUN 25, creatinine 0.8, GFR greater than 60, blood glucose range 141-320, C-reactive protein 5.8 * Patient was started on low-dose sliding scale insulin with 4 times daily Accu- Cheks yesterday. I suspect blood pressure elevation is due to the dexamethasone and now that patient's appetite has returned. Patient is currently on a regular mechanical soft diet with Ensure supplements. 03/11/20 * Patient is more lethargic today * Was placed back on oxygen last night; currently on 4 L per nasal cannula. * Day 5 of Rocephin * Day 5 of remdesivir and dexamethasone * Coumadin for DVT prophylaxis * Blood sugars more controlled with sliding scale insulin and consistent ca rbohydrate diet 03/12/20 * Awake and alert * Continue current treatment * Encourage to use IS and FV * Ambulate with assistance * Completed remdesivir and rocephin * Still on dexamethsone * BS is much improved * Discharge pending placement to [facility] 03/13/2020 * Patient is stable, but today appears to be more tired. * Stop Cardizem secondary to bradycardia. * Continues on dexamethasone dose 7 of 10. * Completed Rocephin, remdesivir * Discharge pending placement - Plan Plan:: * 89-year-old male with a fairly acute onset of weakness and confusion due to Covid. * Brought to the ED by family as they are not able to care for him due to the rapid decline in his health due to Covid. * Vital signs in the ED reveal a temp of 36.3 Celsius, pulse 65 respiratory rate 20, blood pressure 141/81, pulse ox 92% on room air. * Labs in the ED revealed WBC 5.17, potassium 3.1, BUN 17 creatinine 1.1, GFR greater than 60, troponin less than 0.017, BNP 4928, positive for Covid. * Chest x-ray reveals faint groundglass appearance of infiltrates in both lungs. * Family reveals over the course of the last couple of days that patient has also had difficulty swallowing his medications. PLAN: COVID-19,Weakness, Pneumonia * Admit patient to the [facility] floor with continuous pulse ox and telemetry. * Start remdesivir and dexamethasone treatment. * Rocephin 2 g IV daily x5 days, Zithromax 500 mg daily x3 days. * Respiratory therapy consult to titrate oxygen to maintain sats above 90%. * PT OT to eval and treat * Speech therapy to evaluate due to difficulty swallowing pills. * Incentive spirometer and flutter valve. Congestive heart failure, Atrial fibrillation, Chronic anticoagulation * Lasix 20 mg IV today * Repeat chest x-ray in the a.m. * Pharmacy to consult regarding Coumadin dosing Hypokalemia * Patient was given 60 mg oral potassium in the emergency department * Check electrolytes in the a.m. Therapeutic INR * 2.21 * On Warfarin * Daily INR Mild Hyponatremia * Na of 134 * Continue to monitor Hypoalbuminemia * Albumin of 2.9 * [employer] following Hyperglycemia * BS improved * He is on steroid * Continue ISS: change to Medium intensity Coumadin for DVT prophylaxis Patient is a DNR/DNI. Length of stay greater than 96 hours due to the standard 5-day treatment for Covid. financial services assistant to assist with discharge planning. 03/08/20 * Continue remdesivir and dexamethasone * Continue Rocephin and Zithromax * Respiratory care to continue titrating oxygen and assisting patient with incentive spirometer and flutter valve * PT and OT eval and treat * Potassium 40 mEq p.o. given today. * Ultrasound to hernia to left groin * Swallowing evaluation unable to be completed at this time by speech therapy as speech therapist does not see Covid patients. Nursing staff has been feeding the patient all meals with soft foods and a straw for beverages and he seems to be tolerating that. * Repeat labs in the a.m. 03/09/20 * Continue remdesivir and dexamethasone * Continue Rocephin and Zithromax * Continue to titrate oxygen to room air. * PT and OT * Nursing staff to continue feeding the patient mechanical soft diet. * Will not draw labs tomorrow 03/10/20 * Continue remdesivir and dexamethasone * Continue Rocephin * I spoke with the dietitian regarding the patient's blood sugars and we are going to change him to mechanical soft diabetic diet and change his protein supplements to a lower calorie version. See dietitian notes. At this time, I will not increase his sliding scale insulin dose. I will reevaluate in the morning. * Continue Coumadin for DVT prophylaxispharmacy is dosing. Patient also is wearing DERECK stockings. * Patient is a DNR/DNI * PT and OT to to continue evaluating and treating the patient. 03/11/20 * Continue remdesivir and dexamethasone * Continue Rocephin * Coumadin for DVT prophylaxis * Continue PT and OT * financial services assistant for discharge planning. Patient is to be discharged to [facility] on Saturday at 11 AM. 03/12/20 * Awake and alert * Continue current treatment * Encourage to use IS and FV * Ambulate with assistance * Completed remdesivir and rocephin * Still on dexamethasone day 6 * BS is much improved * Discharge pending placement to [facility] 03/13/2020 * Continue current management * On dexamethasone day 7 of 10 or until discharge. * Continue discharge planning.
[2020-03-13] MEDS: Rosuvastatin 10 MG Tab PO SCH (21:34)
[2020-03-14 08:38] VITALS: BP 133/83; PULSE 57
--- NOTE | 2020-03-14 13:12 | PCM.DCSUM1 ---
Discharge Summary - Hospital Course HPI Initial Comments: 89-year-old male brought into the emergency room by family complaining of "Covid-like symptoms weakness and fall" Onset of his symptoms is unknown the patient was brought in by family and family is no longer reachable to get a better history from and the patient is unable to give his own history. He does answer simple questions however. Patient has a remarkable past medical history of A. fib and is on warfarin. He is also had a stroke in the past. Patient has some degenerative joint disease. Patient [place]. It is unclear to me what specific Covid- like symptoms he has had. At 1324 we were able to get a hold of the patient's son. Apparently the patient's son and [id number] both were Covid positive and are now out of the the quarantine timeline. However this last week the patient developed cold- like symptoms. He had a Covid test done 2 days ago at the [facility] however they have not got the results yet. The patient's been a little more unsteady on his feet and did fall and has some back pain related to this. And this apparently is new. Try him on some Tylenol for the discomfort and x-ray his thoracic and lumbar spine Diagnosis: Stroke: No - Discharge Data Discharge Date: 03/14/20 (Admit date: 03/06/20) Discharge Disposition: DC/Tfer to SNF 03 Condition: Good - Referral to Home Health Primary Care Physician: Grisel Luz PA-C - Discharge Diagnosis/Problem(s) (1) COVID-19 SNOMED Code(s): 949281796 ICD Code: U07.1 - COVID-19 Status: Acute Priority: High (2) Congestive heart failure SNOMED Code(s): 67602753 ICD Code: I50.9 - HEART FAILURE, UNSPECIFIED Status: Chronic Priority: High Qualifiers: Heart failure type: unspecified Heart failure chronicity: unspecified Qualified Code(s): I50.9 - Heart failure, unspecified (3) Hypokalemia SNOMED Code(s): 86042104 ICD Code: E87.6 - HYPOKALEMIA Status: Acute Priority: High (4) Weakness SNOMED Code(s): 78660146 ICD Code: R53.1 - WEAKNESS Status: Acute Priority: High (5) Atrial fibrillation SNOMED Code(s): 84280247 ICD Code: I48.91 - UNSPECIFIED ATRIAL FIBRILLATION Status: Chronic Priority: Medium Qualifiers: Atrial fibrillation type: unspecified Qualified Code(s): I48.91 - Unspecified atrial fibrillation (6) Chronic anticoagulation SNOMED Code(s): 580856347 ICD Code: Z79.01 - ALF (CURRENT) USE OF ANTICOAGULANTS Status: Chronic Priority: Medium (7) Pneumonia due to 2019 novel coronavirus SNOMED Code(s): 083784456778244905 ICD Code: U07.1 - COVID-19; J12.89 - OTHER VIRAL PNEUMONIA Status: Acute Priority: High - Patient Summary/Data Consults: Consultations 03/07/20 11:05 OT Evaluation and Treatment [CONS] Routine PT Evaluation and Treatment [CONS] Routine 03/07/20 13:33 Consult to Speech Language Pathology [[employer] CONSULTANT Evaluation and Treatment] [CONS] Routine Hospital Course: 03/07/20 ASSESSMENT: * 89-year-old male with a fairly acute onset of weakness and confusion due to Covid. * Brought to the ED by family as they are not able to care for him due to the rapid decline in his health due to Covid. * Vital signs in the ED reveal a temp of 36.3 Celsius, pulse 65 respiratory rate 20, blood pressure 141/81, pulse ox 92% on room air. * Labs in the ED revealed WBC 5.17, potassium 3.1, BUN 17 creatinine 1.1, GFR greater than 60, troponin less than 0.017, BNP 4928, positive for Covid. * Chest x-ray reveals faint groundglass appearance of infiltrates in both lungs. * Family reveals over the course of the last couple of days that patient has also had difficulty swallowing his medications. PLAN: COVID-19,Weakness, Pneumonia * Admit patient to the MedSur floor with continuous pulse ox and telemetry. * Start remdesivir and dexamethasone treatment. * Rocephin 2 g IV daily x5 days, Zithromax 500 mg daily x3 days. * Respiratory therapy consult to titrate oxygen to maintain sats above 90%. * PT OT to eval and treat * Speech therapy to evaluate due to difficulty swallowing pills. * Incentive spirometer and flutter valve. Congestive heart failure, Atrial fibrillation, Chronic anticoagulation * Lasix 20 mg IV today * Repeat chest x-ray in the a.m. * Pharmacy to consult regarding Coumadin dosing Hypokalemia * Patient was given 60 mg oral potassium in the emergency department * Check electrolytes in the a.m. Coumadin for DVT prophylaxis Patient is a DNR/DNI. Length of stay greater than 96 hours due to the standard 5-day treatment for Covid. guest services attendant to assist with discharge planning. 03/08/20 * Patient is much more alert today, however he remains confused and is oriented to self only. * Continues on 3 L of oxygen * Labs reveal: D-dimer 1.55, potassium 3.6, C-reactive protein 17.9. * Chest x-ray reveals: New left lower lobe infiltrate indicating worsened pneumonia. There appears to be increased right costophrenic angle blunting which may reflect increased atelectasis. Otherwise, diffuse right upper and right lower lobe infiltrates are unchanged. * Rocephin and Zithromax for pneumonia. * Remdesivir and dexamethasone for Covid * Coumadin for DVT prophylaxis * Incentive spirometer and flutter valve every hour while awake. * Mass/hernia to left groin. 03/08/20 * Continue remdesivir and dexamethasone * Continue Rocephin and Zithromax * Respiratory care to continue titrating oxygen and assisting patient with incentive spirometer and flutter valve * PT and OT eval and treat * Potassium 40 mEq p.o. given today. * Ultrasound to hernia to left groin * Swallowing evaluation unable to be completed at this time by speech therapy as speech therapist does not see Covid patients. Nursing staff has been feeding the patient all meals with soft foods and a straw for beverages and he seems to be tolerating that. * Repeat labs in the a.m. Coumadin for DVT prophylaxis. Patient is a DNR/DNI. Length of stay likely greater than 96 hours due to the standard treatment of Covid. 03/09/20 * Remains confused oriented to self only. On morning rounds he told me that he has not eaten supper yet. * On 2-1/2 L of oxygen per nasal cannula. * Day 3 of Zithromax and Rocephin. * Day 3 of remdesivir and dexamethasone. * Coumadin for DVT prophylaxis * Ultrasound of the left groin mass/lump: Palpable lump in the left groin contains fat and bowel and compromises a hernia measuring 5.8 x 4.7 x 2.4 cm. Bowel containing left groin hernia as above. No acute abnormality. * Labs reveal: D-dimer 1.56, potassium 4.1, BUN 28, creatinine 0.9, GFR greater than 60, C-reactive protein 10.1, procalcitonin that was drawn on 1016 less than 0.05. 03/09/20 * Continue remdesivir and dexamethasone * Continue Rocephin and Zithromax * Continue to titrate oxygen to room air. * PT and OT * Nursing staff to continue feeding the patient mechanical soft diet. * Will not draw labs tomorrow Coumadin for DVT prophylaxis Patient is a DNR/DNI Length of stay will be greater than 96 hours due to the standard treatment of Covid. 03/10/20 * Is much more alert today as he is sitting up in the chair feeding himself breakfast. He is however still confused oriented to name only. * He is now on room air. * Day 4 of Rocephin * Day 4 of remdesivir and dexamethasone. * Coumadin for DVT prophylaxis * 1 view chest x-ray from 03/10/20: 1. Resolved acute pulmonary edema. 2. Dec reased atelectasis but with persistent right upper and bilateral lower lobe opacification likely reflecting continued pneumonia. * Labs reveal: D-dimer 1.68, potassium 3.8, BUN 25, creatinine 0.8, GFR greater than 60, blood glucose range 141-320, C-reactive protein 5.8 * Patient was started on low-dose sliding scale insulin with 4 times daily Accu- Cheks yesterday. I suspect blood pressure elevation is due to the dexamethasone and now that patient's appetite has returned. Patient is currently on a regular mechanical soft diet with Ensure supplements. 03/10/20 * Continue remdesivir and dexamethasone * Continue Rocephin * I spoke with the dietitian regarding the patient's blood sugars and we are going to change him to mechanical soft diabetic diet and change his protein supplements to a lower calorie version. See dietitian notes. At this time, I will not increase his sliding scale insulin dose. I will reevaluate in the morning. * Continue Coumadin for DVT prophylaxispharmacy is dosing. Patient also is wearing DERECK stockings. * Patient is a DNR/DNI * PT and OT to to continue evaluating and treating the patient. 03/11/20 * Patient is more lethargic today * Was placed back on oxygen last night; currently on 4 L per nasal cannula. * Day 5 of Rocephin * Day 5 of remdesivir and dexamethasone * Coumadin for DVT prophylaxis * Blood sugars more controlled with sliding scale insulin and consistent carbohydrate diet 03/11/20 * Continue remdesivir and dexamethasone * Continue Rocephin * Coumadin for DVT prophylaxis * Continue PT and OT * guest services attendant for discharge planning. Patient is to be discharged to [facility] on Saturday at 11 AM. 03/12/20 * Awake and alert * Continue current treatment * Encourage to use IS and FV * Ambulate with assistance * Completed remdesivir and rocephin * Still on dexamethasone day 6 * BS is much improved * Discharge pending placement to [facility] 03/13/2020 * Patient is stable, but today appears to be more tired. * Stop Cardizem secondary to bradycardia. * Continues on dexamethasone dose . * Completed Rocephin, remdesivir * Discharge pending placement 03/13/2020 * Continue current management * On dexamethasone day or until discharge. * Continue discharge planning. 03/14/20 * Patient is awake and alert sitting up in chair feeding himself breakfast. States he is not going to talk to me today. * He is on room air. * Patient will be discharged to [facility]. * Will discontinue the dexamethasone. * INR to be drawn on Saturday. Dr. Mendosa to dose Coumadin. - Patient Instructions Diet: Regular Diet as Tolerated Activity: As Tolerated Notify Provider of: Fever, Nausea and/or Vomiting Other/Special Instructions: May discharge to [facility]. Follow-up with Dr. Mendosa in 1 week. Recheck INR on March 18. Dr. Mendosa to dose Coumadin. Patient should be weighed daily. Should his weight go up more than 3 pounds in 1 day or 5 pounds in a week, Dr. Mendosa should be notified. - Discharge Plan *PRESCRIPTION DRUG MONITORING PROGRAM REVIEWED*: Not Applicable *COPY OF PRESCRIPTION DRUG MONITORING REPORT IN PATIENT [place]: Not Applicable Home Medications: Home Meds atorvaSTATin [Lipitor] 40 mg PO BEDTIME #30 tab 11/27/13 [Rx] Warfarin Sodium 4 mg PO SUTUWETHSA 10/07/17 [History] Furosemide [Lasix] 10 mg PO SUTUWEFRSA 08/14/18 [History] Digoxin 125 mcg PO DAILY 04/18/19 [History] MV-Mn/Iron/FA/Vit K/K.Ginseng [Cent[employer] Tab] 1 tab PO DAILY 04/19/19 [History] Metoprolol Succinate [Toprol XL 100mg] 100 mg PO BID 04/19/19 [History] Acetaminophen [Tylenol] 500 mg PO BID 03/06/20 [History] Furosemide [Lasix] 20 mg PO MOTH 03/06/20 [History] Gabapentin [Neurontin] 100 mg PO DAILY 03/06/20 [History] Warfarin [Coumadin] 2 mg PO MOFR 03/06/20 [History] Oxygen Therapy Mode: Room Air Patient Handouts: COVID-19 Frequently Asked Questions, COVID-19, Heart Failure Action Plan, COVID-19: How to Protect Yourself and Others - CDC, Heart Failure, Diagnosis, Prevent the Spread of COVID-19 if You Are Sick - CDC, Sepsis, Self Care, Adult Forms: ED Department Discharge Referrals: Grisel Luz PA [Primary Care Provider] - Salomón Mendosa MD [Ordering Only Provider] - 03/22/20 11:30 am - Discharge Summary/Plan Comment DC Time >30 min.: No - General Info Date of Service: 03/14/20 Admission Dx/Problem (Free Text: Admission Diagnosis/Problem Admission Diagnosis/Problem Congestive heart failure Subjective Update: Alert today. Sitting up in his chair feeding himself breakfast. He is on room air. Functional Status: Reports: Pain Controlled, Tolerating Diet, Ambulating, Urinating (Incontinent) - Review of Systems General: Reports: No Symptoms HEENT: Reports: No Symptoms Pulmonary: Reports: No Symptoms Cardiovascular: Reports: No Symptoms Gastrointestinal: Reports: No Symptoms Genitourinary: Reports: Incontinence Musculoskeletal: Reports: No Symptoms Skin: Reports: No Symptoms Neurological: Reports: Confusion Psychiatric: Reports: Confusion - Patient Data Vitals - Most Recent: Last Vital Signs Temp 97.9 F 03/14/20 07:44 Pulse 57 L 03/14/20 07:45 Resp 16 03/14/20 07:44 BP 133/83 03/14/20 07:44 Pulse Ox 95 03/14/20 08:00 Weight - Most Recent: 167 lb 4.8 oz I&O - Last 24 hours: Intake & Output 03/13/20 03/14/20 03/14/20 22:59 06:59 14:59 Intake Total 460 300 100 Balance 460 300 100 Lab Results - Last 24 hrs: Laboratory Results - last 24 hr 03/13/20 03/13/20 03/14/20 Range/Units 17:15 20:50 06:11 WBC (4.23-9.07) K/mm3 RBC (4.63-6.08) M/mm3 Hgb (13.7-17.5) gm/dl Hct (40.1-51.0) % MCV (79.0-92.2) fl MCH (25.7-32.2) pg MCHC (32.2-35.5) g/dl RDW Std Deviation (35.1-43.9) fL Plt Count (163-337) K/mm3 MPV (9.4-12.3) fl Neut % (Auto) (34.0-67.9) % Lymph % (Auto) (21.8-53.1) % [place] % (Auto) (5.3-12.2) % Eos % (Auto) (0.8-7.0) Baso % (Auto) (0.1-1.2) % Neut # (Auto) (1.78-5.38) K/mm3 Lymph # (Auto) (1.32-3.57) K/mm3 [place] # (Auto) (0.30-0.82) K/mm3 Eos # (Auto) (0.04-0.54) K/mm3 Baso # (Auto) (0.01-0.08) K/mm3 Manual Slide Review PT 19.2 H (9.7-12.0) SECONDS INR 1.82 Sodium (136-145) mEq/L Potassium (3.5-5.1) mEq/L Chloride (98-107) mEq/L Carbon Dioxide (21-32) mEq/L Anion Gap (5-15) BUN (7-18) mg/dL Creatinine (0.7-1.3) mg/dL Est Cr Clr Drug Dosing mL/min Estimated GFR (MDRD) (>60) mL/min BUN/Creatinine Ratio (14-18) Glucose (83-115) mg/dL POC Glucose 174 H 341 H (83-110) mg/dL Calcium (8.5-10.1) mg/dL Magnesium (1.8-2.4) mg/dl C-Reactive Protein (<1.0) mg/dL 03/14/20 03/14/20 03/14/20 Range/Units 06:11 06:11 06:19 WBC 10.59 H (4.23-9.07) K/mm3 RBC 4.70 (4.63-6.08) M/mm3 Hgb 13.6 L (13.7-17.5) gm/dl Hct 41.0 (40.1-51.0) % MCV 87.2 (79.0-92.2) fl MCH 28.9 (25.7-32.2) pg MCHC 33.2 (32.2-35.5) g/dl RDW Std Deviation 44.4 H (35.1-43.9) fL Plt Count 328 (163-337) K/mm3 MPV 10.7 (9.4-12.3) fl Neut % (Auto) 87.4 H (34.0-67.9) % Lymph % (Auto) 5.0 L (21.8-53.1) % [place] % (Auto) 6.7 (5.3-12.2) % Eos % (Auto) 0 L (0.8-7.0) Baso % (Auto) 0.1 (0.1-1.2) % Neut # (Auto) 9.25 H (1.78-5.38) K/mm3 Lymph # (Auto) 0.53 L (1.32-3.57) K/mm3 [place] # (Auto) 0.71 (0.30-0.82) K/mm3 Eos # (Auto) 0.00 L (0.04-0.54) K/mm3 Baso # (Auto) 0.01 (0.01-0.08) K/mm3 Manual Slide Review Abnormal smear PT (9.7-12.0) SECONDS INR Sodium 133 L (136-145) mEq/L Potassium 4.3 (3.5-5.1) mEq/L Chloride 97 L (98-107) mEq/L Carbon Dioxide 28 (21-32) mEq/L Anion Gap 12.3 (5-15) BUN 34 H (7-18) mg/dL Creatinine 1.0 (0.7-1.3) mg/dL Est Cr Clr Drug Dosing 55.86 mL/min Estimated GFR (MDRD) > 60 (>60) mL/min BUN/Creatinine Ratio 34.0 H (14-18) Glucose 143 H (83-115) mg/dL POC Glucose 152 H (83-110) mg/dL Calcium 8.6 (8.5-10.1) mg/dL Magnesium 2.1 (1.8-2.4) mg/dl C-Reactive Protein 1.9 H* (<1.0) mg/dL Med Orders - Current: Current Medications Discontinued Medications Acetaminophen (Tylenol) 975 mg PO NOW ONE Stop: 03/06/20 13:25 Last Admin: 03/06/20 13:32 Dose: 975 mg Documented by: Acetaminophen (Tylenol) Confirm Administered Dose 975 mg .ROUTE .STK-MED ONE Stop: 03/06/20 13:27 Last Admin: 03/06/20 13:32 Dose: Not Given Documented by: Acetaminophen (Tylenol) 650 mg PO Q4H PRN PRN Reason: Pain Dexamethasone (Dexamethasone) 6 mg PO DAILY [facility] Stop: 03/16/20 09:01 Last Admin: 03/13/20 09:56 Dose: 6 mg Documented by: Digoxin (Lanoxin) 125 mcg PO DAILY [facility] Last Admin: 03/13/20 09:56 Dose: 125 mcg Documented by: Diltiazem HCl (Cardizem Cd) 120 mg PO DAILY [facility] Last Admin: 03/13/20 10:06 Dose: Not Given Documented by: Enoxaparin Sodium (Lovenox) 30 mg SUBCUT Q12H [facility] Last Admin: 03/07/20 14:13 Dose: Not Given Documented by: Furosemide (Lasix) 20 mg IVPUSH NOW ONE Stop: 03/07/20 10:01 Last Admin: 03/07/20 11:01 Dose: 20 mg Documented by: Furosemide (Lasix) 10 mg PO SUTUWEFRSA [facility] Last Admin: 03/13/20 09:59 Dose: 10 mg Documented by: Furosemide (Lasix) 20 mg PO MOTH [facility] Last Admin: 03/10/20 09:08 Dose: 20 mg Documented by: Gabapentin (Neurontin) 100 mg PO DAILY [facility] Last Admin: 03/13/20 09:56 Dose: 100 mg Documented by: Remdesivir 200 mg/ Sodium (Chloride) 250 mls @ 250 mls/hr IV ONETIME ONE Stop: 03/07/20 04:01 Last Admin: 03/07/20 03:45 Dose: 250 mls/hr Documented by: Remdesivir 100 mg/ Sodium (Chloride) 100 mls @ 100 mls/hr IV Q24H [facility] Stop: 03/11/20 05:59 Last Admin: 03/11/20 05:55 Dose: 100 mls/hr Documented by: Ceftriaxone Sodium 2 gm/ (Sodium Chloride) 100 mls @ 200 mls/hr IV Q24H [facility] Stop: 03/11/20 10:29 Last Admin: 03/11/20 10:43 Dose: 200 mls/hr Documented by: Azithromycin 500 mg/ Sodium (Chloride) 250 mls @ 250 mls/hr IV Q24H [facility] Stop: 03/09/20 11:29 Last Admin: 03/09/20 11:10 Dose: 250 mls/hr Documented by: Magnesium Sulfate (Magnesium Sulfate In Water Premix) 2 gm in 50 mls @ 25 mls/hr IV ONETIME ONE Stop: 03/07/20 13:59 Last Admin: 03/07/20 11:01 Dose: 25 mls/hr Documented by: Insulin Human Lispro (Humalog) 0 unit SUBCUT QIDACANDBED [facility]; Protocol Last Admin: 03/13/20 21:35 Dose: 8 units Documented by: Magnesium Hydroxide (Milk Of Magnesia) 30 ml PO ONETIME ONE Stop: 03/08/20 06:01 Last Admin: 03/08/20 05:37 Dose: Not Given Documented by: Metoprolol Succinate (Toprol Xl) 100 mg PO BID [facility] Last Admin: 03/13/20 21:34 Dose: 100 mg Documented by: Potassium Chloride (Potassium Chloride Solution) 40 meq PO ONETIME ONE Stop: 03/06/20 16:48 Last Admin: 03/07/20 02:57 Dose: Not Given Documented by: Potassium Chloride (Klor-Con M20) Confirm Administered Dose 40 meq .ROUTE .STK- MED ONE Stop: 03/06/20 17:06 Last Admin: 03/06/20 17:09 Dose: Not Given Documented by: Potassium Chloride (Klor-Con M20) 40 meq PO ONETIME ONE Stop: 03/06/20 17:09 Last Admin: 03/06/20 17:10 Dose: 40 meq Documented by: Potassium Chloride (Klor-Con M20) 20 meq PO ONETIME ONE Stop: 03/06/20 18:25 Last Admin: 03/06/20 18:42 Dose: 20 meq Documented by: Potassium Chloride (Klor-Con M20) 20 meq PO ONETIME ONE Stop: 03/07/20 10:01 Last Admin: 03/07/20 12:00 Dose: 20 meq Documented by: Potassium Chloride (Klor-Con M20) 40 meq PO ONETIME ONE Stop: 03/08/20 09:01 Last Admin: 03/08/20 09:08 Dose: 40 meq Documented by: Rosuvastatin Calcium (Crestor) 10 mg PO BEDTIME [facility] Last Admin: 03/13/20 21:34 Dose: 10 mg Documented by: Warfarin Sodium (Pharmacy To Dose - Warfarin) 1 dose .XX ASDIRECTED PRN PRN Reason: RX TO DOSE WARFARIN Warfarin Sodium (Coumadin) 2 mg PO QPM [facility] Stop: 03/07/20 18:01 Last Admin: 03/07/20 17:39 Dose: 2 mg Documented by: Warfarin Sodium (Coumadin Sliding Scale) 0 each PO QPM [facility] Stop: 03/08/20 18:01 Last Admin: 03/08/20 18:09 Dose: Not Given Documented by: Warfarin Sodium (Coumadin) 3 mg PO QPM [facility] Stop: 03/09/20 18:01 Last Admin: 03/09/20 18:13 Dose: 3 mg Documented by: Warfarin Sodium (Coumadin Sliding Scale) 0 each PO QPM [facility] Stop: 03/10/20 18:01 Last Admin: 03/10/20 18:09 Dose: Not Given Documented by: Warfarin Sodium (Coumadin Sliding Scale) 0 each PO QPM [facility] Stop: 03/11/20 18:01 Last Admin: 03/11/20 17:27 Dose: Not Given Documented by: Warfarin Sodium (Coumadin) 1 mg PO QPM [facility] Stop: 03/12/20 21:00 Last Admin: 03/12/20 18:41 Dose: 1 mg Documented by: Warfarin Sodium (Coumadin) 1 mg PO QPM [facility] Stop: 03/13/20 21:00 Last Admin: 03/13/20 17:27 Dose: 1 mg Documented by: - Exam Quality Assessment: Reports: DVT Prophylaxis (Patient takes Coumadin). Denies: Supplemental Oxygen General: Reports: Alert, No Acute Distress. Denies: Oriented, Cooperative (States he is not going to talk to me today.) HEENT: Reports: Pupils Equal, Pupils Reactive, Mucous Membr. Moist/[place] Neck: Reports: Supple, Trachea Midline. Denies: Lymphadenopathy Lungs: Reports: Normal Respiratory Effort, Crackles (Bilateral bases) Cardiovascular: Reports: Regular Rate, No Murmurs, Irregular Rhythm GI/Abdominal Exam: Normal Bowel Sounds, Soft, Non-Tender, No Distention (Male) Exam: Deferred Rectal (Males) Exam: Deferred Back Exam: Reports: Normal Inspection, Full Range of Motion Extremities: Normal Inspection, Normal Range of Motion, Non-Tender, No Pedal Edema, Normal Capillary Refill Skin: Reports: Warm, Dry, Intact Neurological: Reports: No New Focal Deficit Psy/Mental Status: Reports: Alert, Normal Affect, Normal Mood
== END 2020-03-14 11:00 | DRG 177 ==
LOC: JD.ED 11:35 → JD.MS 23:42
PROVIDERS: ADMIT Family Medicine; ATTEND Family Medicine
PROC: XW033E5 Introduction of Remdesivir Anti-infective into Peripheral Vein, Percutaneous Approach, New Technology Group 5 (ICD-10-PCS; principal; 2020-03-07)
DX: U07.1 COVID-19 (principal); J12.89 Other viral pneumonia; E87.1 Hypo-osmolality and hyponatremia; R53.1 Weakness; I11.0 Hypertensive heart disease with heart failure; I48.91 Unspecified atrial fibrillation; M19.90 Unspecified osteoarthritis, unspecified site; I10 Essential (primary) hypertension; I50.9 Heart failure, unspecified; E87.6 Hypokalemia; Z66 Do not resuscitate; H54.7 Unspecified visual loss; E78.00 Pure hypercholesterolemia, unspecified; Z96.659 Presence of unspecified artificial knee joint; R32 Unspecified urinary incontinence; G89.29 Other chronic pain; M54.9 Dorsalgia, unspecified; C61 Malignant neoplasm of prostate; Z99.81 Dependence on supplemental oxygen; Z79.01 Long term (current) use of anticoagulants; Z79.899 Other long term (current) drug therapy; Z86.73 Personal history of transient ischemic attack (TIA), and cerebral infarction without residual deficits
CPT/HCPCS: 36415; 70450; 71045; 72070; 72100; 80053; 80162; 81001; 83880; 84484; 85025; 85610; 93005; 99285; A9270 ×3; U0002; 76881-26-LT; 76881-LT; 80048; 82962; 83735; 84100; 84145; 85379; 86140; 94667; 94668; 94760; 94761; 97110-GP; 97162-GP; 97165-GO; 97530-GO; 97530-GP; 97535-GO; J0456; J0696; J1815-GY; J1940; J3475; J7050; J8540